=== PATIENT | male | born 1945 | race Caucasian/White ===

== ENCOUNTER 2020-04-20 09:07 | Outpatient (REF) | payer MEDICARE, OTHER, SELFPAY ==
[2020-04-20 11:19] LABS: MANUAL DIFF FLAG NO
[2020-04-20 11:29] LABS: Basophils Absolute Auto 0.1 X10*3/uL (0.0-0.2); Basophils Percent Auto 0.8 % (0-2); Eosinophils Absolute Auto 0.3 X10*3/uL (0.0-0.4); Eosinophils Percent Auto 3.3 % (0-4); Hematocrit 42.6 % (42-52); Hemoglobin 14.3 g/dl (14.0-18.0); Imm Gran Abs Auto 0.03 X10*3/uL (0.00-0.03); Imm Gran Pct Auto 0.3 % (0.0-0.4); Lymphocytes Percent Auto 29.2 % (20-40); Mean Corpuscular HGB Conc 33.6 g/dl (31.0-36.0); Mean Corpuscular Hemoglobin 29.7 pg (27.0-33.0); Mean Corpuscular Volume 88.4 fL (80-98); Mean Platelet Volume 11.3 fL (9.4-12.4); Monocytes Absolute Auto 1.1 X10*3/uL (0.1-1.2); Monocytes Percent Auto 10.5 % (2-11); Neutrophils Absolute Auto 5.8 X10*3/uL (2.0-8.3); Neutrophils Percent Auto 55.9 % (45-73); Platelet Count 248 X10*3/uL (160-400); Red Blood Count 4.82 X10*6/uL (4.60-5.80); Red Cell Distribution Width 13.2 % (11.0-16.0); White Blood Count 10.4 X10*3/uL (4.8-10.8)
[2020-04-20 12:07] LABS: Alanine Aminotransferase 18 U/L (0-40); Alkaline Phosphatase 69 U/L (39-117); Anion Gap 17 (12-20); Aspartate Amino Transferase 17 U/L (5-37); Bilirubin Total 0.5 mg/dL (0.0-1.0); Blood Urea Nitrogen 13 mg/dL (9-16); Calcium 8.4 mg/dL (8.4-10.2); Carbon Dioxide 23 mmol/L (22-29); Chloride 105 mmol/L (96-108); Cholesterol 172 mg/dL; Estimated Glomerular Filt Rate > 60; Glucose Fasting 136 mg/dL (60-99); HDL Cholesterol 36 mg/dL; LDL Cholesterol Calculated 102 mg/dl; Potassium 4.5 mmol/l (3.3-5.1); Sodium 140 mmol/L (135-145); Total Protein 6.8 g/dL (6.5-8.0); Triglycerides 174 mg/dL
[2020-04-20 12:11] LABS: Estimated Average Glucose 189 mg/dL; Hemoglobin A1c % 8.2 %
[2020-04-20 12:13] LABS: Creatinine Urine 57.58 mg/dL; Microalbum/Creatinine Ratio Ur 27.7 ug/mg cr
[2020-04-20 12:15] LABS: Prostate Specific Antigen Scr 1.03 ng/mL (<0.05-4.0)
== END 2020-04-20 09:08 | disposition home or self-care (01) ==
LOC: HO.HMGCLDS 09:07
PROVIDERS: PCP Internal Medicine; Visit Provider Internal Medicine
DX: K21.9 Gastro-esophageal reflux disease without esophagitis (principal); I10 Essential (primary) hypertension; E11.9 Type 2 diabetes mellitus without complications
CPT/HCPCS: 36415; 80053; 80061; 82043; 83036; 84153; 85025

== ENCOUNTER 2020-06-12 14:47 | Outpatient (REF) | payer MEDICARE, OTHER, SELFPAY ==
[2020-06-12 15:31] LABS: Influenza A PCR NEGATIVE (Negative); Influenza B PCR NEGATIVE (Negative); Resp Syncy Virus RNA Qual PCR NEGATIVE (Negative)
[2020-06-12 15:39] LABS: SARS COV2 PCR INHOUSE POSITIVE (Negative)
== END 2020-06-12 14:48 | disposition home or self-care (01) ==
LOC: HO.LNP 14:47
PROVIDERS: Visit Provider Internal Medicine
DX: Z20.828 Contact with and (suspected) exposure to other viral communicable diseases (principal)
CPT/HCPCS: 0241U

== ENCOUNTER 2020-09-04 12:29 | Outpatient (REF) | payer MEDICARE, OTHER, SELFPAY ==
[2020-09-04 13:54] LABS: Glucose Urine UA >=1000 MG/DL (NEG); Leukocyte Esterase Urine NEG (NEG); Nitrite Urine NEG (NEG); PH 5.5 (5.0-8.0); Specific Gravity - Urine 1.025 (1.005-1.025); Urine Blood NEG (NEG); Urine Ketones NEG (NEG); Urine Protein NEG (NEG-TRACE)
[2020-09-04 13:58] LABS: Appearance Urine CLEAR; Color Urine YELLOW
[2020-09-04 14:03] LABS: RBC Urine 0 /HPF (0); Squamous Epithelial Cell Urine TRACE /LPF
[2020-09-04 14:14] LABS: Estimated Average Glucose 174 mg/dL; Hemoglobin A1c % 7.7 %
[2020-09-04 14:37] LABS: Alanine Aminotransferase 21 U/L (0-40); Albumin Level 4.1 g/dL (3.5-5.0); Alkaline Phosphatase 77 U/L (39-117); Anion Gap 18 (12-20); Aspartate Amino Transferase 17 U/L (5-37); Bilirubin Total 0.6 mg/dL (0.0-1.0); Blood Urea Nitrogen 13 mg/dL (9-16); Calcium 9.5 mg/dL (8.4-10.2); Carbon Dioxide 23 mmol/L (22-29); Chloride 102 mmol/L (96-108); Estimated Glomerular Filt Rate > 60; Glucose Random 286 mg/dL (60-115); Potassium 3.9 mmol/L (3.3-5.1); Sodium 139 mmol/L (135-145); Total Protein 7.2 g/dL (6.5-8.0)
[2020-09-04 14:39] LABS: Creatinine Urine 121.46 mg/dL; Microalbum/Creatinine Ratio Ur 53.5 ug/mg cr
== END 2020-09-04 12:30 | disposition home or self-care (01) ==
LOC: HO.HMGCLDS 12:29
PROVIDERS: PCP Internal Medicine; Visit Provider Internal Medicine
DX: I10 Essential (primary) hypertension (principal); E11.9 Type 2 diabetes mellitus without complications; K21.9 Gastro-esophageal reflux disease without esophagitis
CPT/HCPCS: 36415; 80053; 81001; 82043; 83036

== ENCOUNTER 2020-12-19 17:53 | Outpatient (REF) | payer MEDICARE, OTHER, SELFPAY | END 2020-12-19 17:54 | disposition home or self-care (01) | LOC: HO.LNP 17:53 | PROVIDERS: Visit Provider Internal Medicine | DX: R19.7 Diarrhea, unspecified (principal) | CPT/HCPCS: 87045; 87046 ==

== ENCOUNTER 2021-01-12 11:57 | Outpatient (REF) | payer MEDICARE, OTHER, SELFPAY ==
[2021-01-12 13:04] LABS: MANUAL DIFF FLAG NO
[2021-01-12 13:08] LABS: Basophils Absolute Auto 0.1 X10*3/uL (0.0-0.2); Basophils Percent Auto 0.9 % (0-2); Eosinophils Absolute Auto 0.5 X10*3/uL (0.0-0.4); Eosinophils Percent Auto 4.7 % (0-4); Hematocrit 44.1 % (42-52); Hemoglobin 14.7 g/dl (14.0-18.0); Imm Gran Abs Auto 0.04 X10*3/uL (0.00-0.03); Imm Gran Pct Auto 0.4 % (0.0-0.4); Lymphocytes Percent Auto 27.4 % (20-40); Mean Corpuscular HGB Conc 33.3 g/dl (31.0-36.0); Mean Corpuscular Hemoglobin 29.1 pg (27.0-33.0); Mean Corpuscular Volume 87.2 fL (80-98); Mean Platelet Volume 11.6 fL (9.4-12.4); Monocytes Absolute Auto 0.8 X10*3/uL (0.1-1.2); Monocytes Percent Auto 7.4 % (2-11); Neutrophils Absolute Auto 6.4 X10*3/uL (2.0-8.3); Neutrophils Percent Auto 59.2 % (45-73); Platelet Count 247 X10*3/uL (160-400); Red Blood Count 5.06 X10*6/uL (4.60-5.80); Red Cell Distribution Width 13.2 % (11.0-16.0); White Blood Count 10.8 X10*3/uL (4.8-10.8)
[2021-01-12 13:17] LABS: Estimated Average Glucose 200 mg/dL; Hemoglobin A1c % 8.6 %
[2021-01-12 13:43] LABS: Alanine Aminotransferase 19 U/L (0-40); Albumin Level 4.1 g/dL (3.5-5.0); Alkaline Phosphatase 76 U/L (39-117); Anion Gap 17 (12-20); Aspartate Amino Transferase 15 U/L (5-37); Bilirubin Total 0.5 mg/dL (0.0-1.0); Blood Urea Nitrogen 13 mg/dL (9-16); Calcium 9.7 mg/dL (8.4-10.2); Carbon Dioxide 25 mmol/L (22-29); Chloride 103 mmol/L (96-108); Estimated Glomerular Filt Rate > 60; Glucose Random 304 mg/dL (60-115); Potassium 4.6 mmol/L (3.3-5.1); Sodium 140 mmol/L (135-145); Total Protein 6.9 g/dL (6.5-8.0)
[2021-01-12 14:02] LABS: Microalbum/Creatinine Ratio Ur 18.2 ug/mg cr
== END 2021-01-12 11:58 | disposition home or self-care (01) ==
LOC: HO.LAB 11:57
PROVIDERS: PCP Internal Medicine; Visit Provider Internal Medicine
DX: E11.9 Type 2 diabetes mellitus without complications (principal); I10 Essential (primary) hypertension; K21.9 Gastro-esophageal reflux disease without esophagitis
CPT/HCPCS: 36415; 80053; 82043; 83036; 85025

== ENCOUNTER 2021-03-23 13:50 | Outpatient (REF) | payer MEDICARE, OTHER, SELFPAY ==
[2021-03-23 14:05] LABS: MANUAL DIFF FLAG NO
[2021-03-23 14:19] LABS: Basophils Absolute Auto 0.1 X10*3/uL (0.0-0.2); Basophils Percent Auto 0.9 % (0-2); Eosinophils Absolute Auto 0.3 X10*3/uL (0.0-0.4); Eosinophils Percent Auto 3.3 % (0-4); Hematocrit 43.8 % (42-52); Hemoglobin 15.1 g/dl (14.0-18.0); Imm Gran Abs Auto 0.02 X10*3/uL (0.00-0.03); Imm Gran Pct Auto 0.2 % (0.0-0.4); Lymphocytes Absolute Auto 2.7 X10*3/uL (1.2-4.9); Lymphocytes Percent Auto 27.4 % (20-40); Mean Corpuscular HGB Conc 34.5 g/dl (31.0-36.0); Mean Corpuscular Hemoglobin 29.4 pg (27.0-33.0); Mean Corpuscular Volume 85.4 fL (80-98); Mean Platelet Volume 10.9 fL (9.4-12.4); Monocytes Absolute Auto 1.1 X10*3/uL (0.1-1.2); Monocytes Percent Auto 11.5 % (2-11); Neutrophils Absolute Auto 5.6 X10*3/uL (2.0-8.3); Neutrophils Percent Auto 56.7 % (45-73); Platelet Count 251 X10*3/uL (160-400); Red Blood Count 5.13 X10*6/uL (4.60-5.80); White Blood Count 9.8 X10*3/uL (4.8-10.8)
[2021-03-23 14:41] LABS: Estimated Average Glucose 226 mg/dL; Hemoglobin A1c % 9.5 %
[2021-03-23 14:45] LABS: Alanine Aminotransferase 17 U/L (0-40); Albumin Level 4.1 g/dL (3.5-5.0); Alkaline Phosphatase 80 U/L (39-117); Anion Gap 15 (12-20); Aspartate Amino Transferase 15 U/L (5-37); Bilirubin Total 0.4 mg/dL (0.0-1.0); Blood Urea Nitrogen 12 mg/dL (9-16); C Reactive Protein 1.19 mg/dL (< or = 0.50); Calcium 9.9 mg/dL (8.4-10.2); Carbon Dioxide 26 mmol/L (22-29); Chloride 102 mmol/L (96-108); Estimated Glomerular Filt Rate > 60; Glucose Random 288 mg/dL (60-115); Lipase 21 U/L (8-78); Potassium 4.4 mmol/L (3.3-5.1); Sodium 139 mmol/L (135-145); Total Protein 7.1 g/dL (6.5-8.0)
[2021-03-24 11:56] LABS: Gliadin Deamidated IgA Ab <1.0 U/mL; Gliadin Deamidated IgG Ab <1.0 U/mL; Transglutaminase Ab IgG <1.0 U/mL
== END 2021-03-23 13:51 | disposition home or self-care (01) ==
LOC: HO.LAB 13:50
PROVIDERS: PCP Internal Medicine; Visit Provider Internal Medicine
DX: R10.9 Unspecified abdominal pain (principal); I10 Essential (primary) hypertension; E11.9 Type 2 diabetes mellitus without complications
CPT/HCPCS: 36415; 80053; 83036; 83516; 83690; 85025; 86140

== ENCOUNTER 2021-04-03 13:12 | Outpatient (REF) | payer MEDICARE, OTHER, SELFPAY ==
--- NOTE | ~2021-04-03 | CT_ITS ---
EXAMINATION: CT ABDOMEN AND PELVIS WITHOUT CONTRAST CLINICAL INFORMATION: Abdominal pain COMPARISON: None TECHNIQUE: Multidetector volumetric imaging was performed from the superior aspect of the liver through the pubic symphysis. Sagittal and coronal reformatted images were obtained on the technologist's workstation. This CT examination was performed using dose optimization techniques as appropriate, variously including the following: *Automated exposure control *Adjustment of mA and/or kV according to patient size (this includes techniques or standardized protocols for targeted exams where dose is matched to indication/reason for exam; i.e. extremities or head) *Use of iterative reconstruction technique DLP: 436 mGy-cm FINDINGS: LUNG BASES: The visualized lung bases are unremarkable. LIVER, GALLBLADDER, AND BILIARY TREE: The liver is normal in size, shape, and attenuation. No focal hepatic lesion or biliary ductal dilatation is present. The gallbladder is unremarkable with no evidence of radiopaque gallstones, gallbladder wall thickening, or obvious pericholecystic inflammatory changes. PANCREAS: There is a 1 cm cyst in the tail of the pancreas axial image 21 series 3. The pancreas is otherwise unremarkable. SPLEEN: Unremarkable. ADRENAL GLANDS: Unremarkable. KIDNEYS AND URETERS: There is a 1.5 cm lesion in the upper pole of the right kidney. This is slightly increased in signal compared to the renal cortex and has peripheral dependent calcification. This may represent a milk of calcium cyst. Kidneys are otherwise unremarkable. BLADDER: Unremarkable. GASTROINTESTINAL TRACT: There is diverticulosis of the colon. No evidence of diverticulitis. The small and large bowel is otherwise unremarkable. The stomach is unremarkable. The appendix is unremarkable. ABDOMINAL WALL: There is a small umbilical hernia containing fat. LYMPH NODES: There is shotty mesenteric and bilateral inguinal lymphadenopathy. No enlarged lymph nodes are seen. VASCULAR: Unremarkable. PELVIC VISCERA: Unremarkable. OSSEOUS STRUCTURES: There are degenerative changes of the spine. CT/CT abdomen pelvis wo con IMPRESSION: Diverticulosis of the colon. No evidence of diverticulitis. 1 cm cyst in the tail of the pancreas. Follow-up MR of the pancreas with MRCP recommended. Probable 1.5 cm milk of calcium cyst in the right kidney.
== END 2021-04-03 13:13 | disposition home or self-care (01) ==
LOC: HO.CT 13:12
PROVIDERS: Visit Provider Internal Medicine
DX: R10.84 Generalized abdominal pain (principal); R19.7 Diarrhea, unspecified
CPT/HCPCS: 74176

== ENCOUNTER 2021-04-16 10:52 | Outpatient (REF) | payer MEDICARE, OTHER, SELFPAY ==
--- NOTE | ~2021-04-16 | MR_ITS ---
EXAMINATION: MR ABDOMEN WITHOUT AND WITH CONTRAST CLINICAL INFORMATION: History of abdominal pain. Findings of pancreatic tail cyst and right renal lesion on noncontrast CT of 04/03/2021. COMPARISON: Noncontrast CT examination of abdomen and pelvis from 04/03/2021. TECHNIQUE: MR abdomen was performed without and with use of 8.5 mL intravenous Gadavist. Postcontrast images are performed in multiphase dynamic sequences. Imaging was performed in 3 planes. FINDINGS: LUNG BASES: No pulmonary consolidation or pleural effusion at either lung base. LIVER: Liver is partially included in the [id number] on the axial images, since the axial images are mainly focused on evaluation of the kidneys. Liver has normal size and contour. Mild diffuse hepatic steatosis is evident on opposed phase gradient echo images. A few very small T2 hyperintense liver cysts are noted on the coronal T2-weighted images. No suspicious liver lesion. GALLBLADDER AND BILIARY TREE: Gallbladder has normal wall thickness. No evidence of cholelithiasis or pericholecystic fluid. No dilated bile ducts. PANCREAS: 1.3 x 1.5 x 1.1 cm cyst of the pancreatic tail has thin internal septation. The cyst wall is approximately 0.2 cm thick. No focal mural nodule. No visible communication between this cyst and the pancreatic duct. No pancreatic ductal dilatation, edema or peripancreatic fluid. SPLEEN: Normal. ADRENAL GLANDS: Normal. KIDNEYS: A 1.6 x 2.1 cm cortical lesion of the lateral right upper pole exhibits intrinsic T1 signal shortening on noncontrast images and is is hypointense on T2-weighted images. Due to mild respiratory motion and misregistration of the serial dynamic contrast-enhanced images, the subtraction images are suboptimal. However, use of a range of interest cursor to measure signal within the renal lesion on precontrast and postcontrast images reveals no appreciable enhancement of the lesion. Findings are consistent with a proteinaceous cyst. There appears to be very thin septation within the cyst. No thick septation or mural nodule. No solid, contrast-enhancing mass. No hydronephrosis or perinephric fluid collection. BOWEL AND PERITONEUM: Stomach is unremarkable. There are diverticula of the colon. No dilated loops of bowel. No bowel wall thickening or mesenteric fat stranding. No ascites or peritoneal nodules. VASCULATURE: Abdominal aorta is normal in caliber. Inferior vena cava and renal veins are normal. LYMPH NODES: No pathologic sized lymph nodes in the abdomen. SKELETAL: Mild dextroscoliosis of the degenerated lumbar spine. Chronic mild degenerative right lateral listhesis of L3 on L4. No suspicious bone lesions. MR/MR abdomen wo/w con IMPRESSION: * There is a proteinaceous cyst (Bosniak category 2 lesion) of the right kidney. No renal imaging follow-up recommended. * There is a 1.5 cm cyst with thin internal septation of the pancreatic tail. Follow-up options include re-imaging of the pancreas in 6 months or endoscopic ultrasound/FNA.
== END 2021-04-16 10:53 | disposition home or self-care (01) ==
LOC: HO.MRI 10:52
PROVIDERS: Visit Provider Internal Medicine
DX: R10.84 Generalized abdominal pain (principal); N28.1 Cyst of kidney, acquired
CPT/HCPCS: 74183; A9585

== ENCOUNTER 2021-09-19 11:11 | Outpatient (REF) | payer MEDICARE, OTHER, SELFPAY ==
[2021-09-19 13:18] LABS: Anion Gap 15 (12-20); Blood Urea Nitrogen 12 mg/dL (9-16); Calcium 9.7 mg/dL (8.4-10.2); Carbon Dioxide 23 mmol/L (22-29); Chloride 105 mmol/L (96-108); Estimated Glomerular Filt Rate > 60; Glucose Random 277 mg/dL (60-115); Potassium 4.2 mmol/L (3.3-5.1); Sodium 139 mmol/L (135-145)
[2021-09-19 13:55] LABS: Estimated Average Glucose 163 mg/dL; Hemoglobin A1c % 7.3 %
== END 2021-09-19 11:12 | disposition home or self-care (01) ==
LOC: HO.10HDL 11:11
PROVIDERS: Visit Provider Internal Medicine
DX: E11.9 Type 2 diabetes mellitus without complications (principal); I10 Essential (primary) hypertension
CPT/HCPCS: 36415; 80048; 83036

== ENCOUNTER 2021-10-16 13:08 | Outpatient (REF) | payer MEDICARE, OTHER, SELFPAY ==
--- NOTE | ~2021-10-16 | MR_ITS ---
EXAMINATION: MR ABDOMEN WITHOUT AND WITH CONTRAST CLINICAL INFORMATION: Pancreatic cyst. COMPARISON: Previous CT of the abdomen and pelvis March 2021 and MR of the abdomen April 2021 TECHNIQUE: MR abdomen was performed without and with use of 8.5 mL intravenous Gadavist gadolinium contrast. Postcontrast images are performed in multiphase dynamic sequences. Imaging was performed in 3 planes. FINDINGS: LUNG BASES: The visualized lung bases are unremarkable. LIVER, GALLBLADDER, AND BILIARY TREE: The liver is normal in size and contour. There is signal loss in the liver on out of phase sequences. There is a tiny cyst in the peripheral right lobe of the liver. The gallbladder is normal. There is no intrahepatic or extrahepatic biliary duct dilatation. PANCREAS: There is a complex cyst in the tail of the pancreas. This measures 1.3 x 1.6 cm in AP and transverse dimension on postcontrast sequences and does not appear appreciably changed in size. This has a single thin nonenhancing septation. This has a thick wall and gradual wall enhancement both of which appear increased from prior exam from 2020. Wall thickness now measures up to 7 mm. The pancreas is otherwise normal. The main pancreatic duct is normal in caliber. SPLEEN: Normal. ADRENAL GLANDS: Normal. KIDNEYS AND URETERS: There is a 1.2 x 1.8 cm lesion in the upper pole of the right kidney. This is high signal on T1-weighted sequences, low signal on T2-weighted sequences and demonstrates no evidence of enhancement. Again this probably represents a complex proteinaceous cyst. GASTROINTESTINAL TRACT: There is diverticulosis of the colon. No bowel obstruction. No ascites or fluid collection. ABDOMINAL WALL: There is an umbilical hernia containing fat. LYMPH NODES: No lymphadenopathy. VASCULAR: Unremarkable. OSSEOUS STRUCTURES: Marrow signal normal. There are degenerative changes of the spine. MR/MR abdomen wo/w con IMPRESSION: There is slight interval increase in wall thickness and enhancement of the complex cyst in the tail of the pancreas. Appearance is concerning for possible neoplasm. Endoscopic ultrasound and fine-needle aspiration should be considered. Other stable liver and right kidney findings. Findings will be communicated by the [place] work flow supervisor costuming.
[2021-10-16 13:03] LABS: Anion Gap 14 (12-20); Blood Urea Nitrogen 14 mg/dL (9-16); Calcium 9.9 mg/dL (8.4-10.2); Carbon Dioxide 26 mmol/L (22-29); Chloride 103 mmol/L (96-108); Estimated Glomerular Filt Rate 59; Glucose Random 344 mg/dL (60-115); Potassium 4.4 mmol/L (3.3-5.1); Sodium 139 mmol/L (135-145)
== END 2021-10-16 13:09 | disposition home or self-care (01) ==
LOC: HO.MRI 13:08
PROVIDERS: Visit Provider Internal Medicine
DX: K86.2 Cyst of pancreas (principal)
CPT/HCPCS: 36415; 74183; 80048; A9585

== ENCOUNTER 2021-10-24 08:21 | Outpatient (REF) | payer MEDICARE, OTHER, SELFPAY ==
[2021-10-24 11:48] LABS: Estimated Average Glucose 169 mg/dL; Hemoglobin A1c % 7.5 %
[2021-10-24 11:55] LABS: Anion Gap 14 (12-20); Blood Urea Nitrogen 9 mg/dL (9-16); Calcium 9.7 mg/dL (8.4-10.2); Carbon Dioxide 26 mmol/L (22-29); Chloride 104 mmol/L (96-108); Estimated Glomerular Filt Rate > 60; Glucose Random 141 mg/dL (60-115); Potassium 4.9 mmol/L (3.3-5.1); Sodium 139 mmol/L (135-145)
== END 2021-10-24 08:22 | disposition home or self-care (01) ==
LOC: HO.HMGCLDS 08:21
PROVIDERS: PCP Internal Medicine; Visit Provider Internal Medicine
DX: E11.65 Type 2 diabetes mellitus with hyperglycemia (principal)
CPT/HCPCS: 36415; 80048; 83036

== ENCOUNTER 2022-04-02 09:20 | Outpatient (REF) | payer MEDICARE, OTHER, SELFPAY ==
[2022-04-02 11:10] LABS: MANUAL DIFF FLAG NO
[2022-04-02 11:14] LABS: Appearance Urine Clear; Color Urine Yellow; Glucose Urine UA Negative (Negative); Leukocyte Esterase Urine Negative (Negative); Nitrite Urine Negative (Negative); PH 6.5 (5.0-9.0); Urine Blood Negative (Negative); Urine Ketones Negative (Negative); Urine Protein Negative (Neg-Trace)
[2022-04-02 11:28] LABS: Basophils Absolute Auto 0.1 X10*3/uL (0.0-0.2); Basophils Percent Auto 0.8 % (0-2); Eosinophils Absolute Auto 0.5 X10*3/uL (0.0-0.4); Eosinophils Percent Auto 4.8 % (0-4); Hematocrit 45.7 % (42.0-52.0); Hemoglobin 15.4 g/dl (14.0-18.0); Imm Gran Abs Auto 0.04 X10*3/uL (0.00-0.03); Imm Gran Pct Auto 0.4 % (0.0-0.4); Lymphocytes Absolute Auto 3.1 X10*3/uL (1.2-4.9); Lymphocytes Percent Auto 29.1 % (20-40); Mean Corpuscular HGB Conc 33.7 g/dl (31.0-36.0); Mean Corpuscular Hemoglobin 29.8 pg (27.0-33.0); Mean Corpuscular Volume 88.6 fL (80.0-98.0); Mean Platelet Volume 10.8 fL (9.4-12.4); Monocytes Absolute Auto 1.1 X10*3/uL (0.1-1.2); Monocytes Percent Auto 9.9 % (2-11); Neutrophils Absolute Auto 5.9 x10*3/uL (2.0-8.3); Platelet Count 263 X10*3/uL (160-400); Red Blood Count 5.16 X10*6/uL (4.60-5.80); Red Cell Distribution Width 13.3 % (11.0-16.0); White Blood Count 10.8 X10*3/uL (4.8-10.8)
[2022-04-02 11:38] LABS: Estimated Average Glucose 163 mg/dL; Hemoglobin A1c % 7.3 %
[2022-04-02 12:03] LABS: Creatinine Urine 89.83 mg/dL; Microalbum/Creatinine Ratio Ur 12.2 ug/mg cr
[2022-04-02 12:03] LABS: Prostate Specific Antigen Scr 1.05 ng/mL (<0.05-4.0)
[2022-04-02 12:30] LABS: Alanine Aminotransferase 18 U/L (0-40); Albumin Level 4.2 g/dL (3.5-5.0); Alkaline Phosphatase 79 U/L (39-117); Anion Gap 19 (12-20); Aspartate Amino Transferase 17 U/L (5-37); Bilirubin Total 0.7 mg/dL (0.0-1.0); Blood Urea Nitrogen 11 mg/dL (9-16); Calcium 9.6 mg/dL (8.4-10.2); Carbon Dioxide 24 mmol/L (22-29); Chloride 103 mmol/L (96-108); Cholesterol 201 mg/dL; Estimated Glomerular Filt Rate > 60; Glucose Fasting 149 mg/dL (60-99); HDL Cholesterol 37 mg/dL; LDL Cholesterol Calculated 134 mg/dl; Potassium 4.6 mmol/L (3.3-5.1); Sodium 141 mmol/L (135-145); Total Protein 7.4 g/dL (6.5-8.0); Triglycerides 150 mg/dL
== END 2022-04-02 09:21 | disposition home or self-care (01) ==
LOC: HO.HMGCLDS 09:20
PROVIDERS: PCP Internal Medicine; Visit Provider Internal Medicine
DX: Z12.5 Encounter for screening for malignant neoplasm of prostate (principal); E11.9 Type 2 diabetes mellitus without complications; E78.00 Pure hypercholesterolemia, unspecified; K21.9 Gastro-esophageal reflux disease without esophagitis; I10 Essential (primary) hypertension
CPT/HCPCS: 36415; 80053; 80061; 81003; 82043; 83036; 84153; 85025

== ENCOUNTER 2022-07-22 11:41 | Outpatient (REF) | payer MEDICARE, OTHER, SELFPAY ==
[2022-07-22 14:31] LABS: Estimated Average Glucose 171 mg/dL; Hemoglobin A1c % 7.6 %
[2022-07-22 14:38] LABS: Anion Gap 14 (12-20); Blood Urea Nitrogen 12 mg/dL (9-16); Calcium 9.4 mg/dL (8.4-10.2); Carbon Dioxide 23 mmol/L (22-29); Chloride 106 mmol/L (96-108); Estimated Glomerular Filt Rate > 60; Glucose Random 255 mg/dL (60-115); Potassium 4.2 mmol/L (3.3-5.1); Sodium 139 mmol/L (135-145)
== END 2022-07-22 11:42 | disposition home or self-care (01) ==
LOC: HO.HMGCLDS 11:41
PROVIDERS: PCP Internal Medicine; Visit Provider Internal Medicine
DX: Z13.89 Encounter for screening for other disorder (principal)
CPT/HCPCS: 36415; 80048; 83036

== ENCOUNTER 2023-01-09 08:02 | Outpatient (REF) | payer MEDICARE, OTHER, SELFPAY ==
[2023-01-09 11:14] LABS: MANUAL DIFF FLAG NO
[2023-01-09 11:49] LABS: Basophils Absolute Auto 0.1 X10*3/uL (0.0-0.2); Eosinophils Absolute Auto 0.4 X10*3/uL (0.0-0.4); Eosinophils Percent Auto 4.4 % (0-4); Hematocrit 45.8 % (42.0-52.0); Hemoglobin 15.3 g/dl (14.0-18.0); Imm Gran Abs Auto 0.03 X10*3/uL (0.00-0.03); Imm Gran Pct Auto 0.3 % (0.0-0.4); Lymphocytes Absolute Auto 2.8 X10*3/uL (1.2-4.9); Lymphocytes Percent Auto 28.5 % (20-40); Mean Corpuscular HGB Conc 33.4 g/dl (31.0-36.0); Mean Corpuscular Hemoglobin 29.3 pg (27.0-33.0); Mean Corpuscular Volume 87.6 fL (80.0-98.0); Mean Platelet Volume 11.5 fL (9.4-12.4); Monocytes Percent Auto 10.7 % (2-11); Neutrophils Absolute Auto 5.4 x10*3/uL (2.0-8.3); Neutrophils Percent Auto 55.1 % (45-73); Platelet Count 243 X10*3/uL (160-400); Red Blood Count 5.23 X10*6/uL (4.60-5.80); Red Cell Distribution Width 13.3 % (11.0-16.0); White Blood Count 9.7 X10*3/uL (4.8-10.8)
[2023-01-09 11:53] LABS: Alanine Aminotransferase 25 U/L (0-40); Albumin Level 3.9 g/dL (3.5-5.0); Alkaline Phosphatase 88 U/L (39-117); Anion Gap 15 (12-20); Aspartate Amino Transferase 19 U/L (5-37); Bilirubin Total 0.7 mg/dL (0.0-1.0); Blood Urea Nitrogen 12 mg/dL (9-16); Calcium 9.4 mg/dL (8.4-10.2); Carbon Dioxide 22 mmol/L (22-29); Chloride 107 mmol/L (96-108); Estimated Glomerular Filt Rate > 60; Glucose Fasting 154 mg/dL (60-99); Potassium 3.9 mmol/L (3.3-5.1); Sodium 140 mmol/L (135-145)
[2023-01-09 12:04] LABS: Estimated Average Glucose 174 mg/dL; Hemoglobin A1c % 7.7 %
[2023-01-09 12:09] LABS: Creatinine Urine 147.31 mg/dL; Microalbum/Creatinine Ratio Ur 7.4 ug/mg cr
== END 2023-01-09 08:03 | disposition home or self-care (01) ==
LOC: HO.HMGCLDS 08:02
PROVIDERS: PCP Internal Medicine; Visit Provider Internal Medicine
DX: E11.9 Type 2 diabetes mellitus without complications (principal); I10 Essential (primary) hypertension; K21.9 Gastro-esophageal reflux disease without esophagitis; K57.90 Diverticulosis of intestine, part unspecified, without perforation or abscess without bleeding
CPT/HCPCS: 36415; 80053; 82043; 83036; 85025

== ENCOUNTER 2023-05-21 08:38 | Outpatient (REF) | payer MEDICARE, OTHER, SELFPAY ==
[2023-05-21 11:35] LABS: Appearance Urine Clear; Color Urine Yellow; Glucose Urine UA Negative (Negative); Leukocyte Esterase Urine Trace (Negative); Nitrite Urine Negative (Negative); PH 5.5 (5.0-9.0); UMIC TRIGGER UA YES; Urine Blood Negative (Negative); Urine Ketones Negative (Negative); Urine Protein Negative (Neg-Trace)
[2023-05-21 11:39] LABS: Alanine Aminotransferase 24 U/L (0-40); Albumin Level 3.9 g/dL (3.5-5.0); Alkaline Phosphatase 92 U/L (39-117); Anion Gap 12 (12-20); Aspartate Amino Transferase 19 U/L (5-37); Bilirubin Total 0.5 mg/dL (0.0-1.0); Blood Urea Nitrogen 12 mg/dL (9-16); Calcium 9.2 mg/dL (8.4-10.2); Carbon Dioxide 24 mmol/L (22-29); Chloride 107 mmol/L (96-108); Cholesterol 184 mg/dL (<200); Estimated Glomerular Filt Rate > 60; Glucose Fasting 170 mg/dL (60-99); HDL Cholesterol 32 mg/dL (>40); LDL Cholesterol Calculated 132 mg/dL (<100); Sodium 139 mmol/L (135-145); Total Protein 7.1 g/dL (6.5-8.0); Triglycerides 102 mg/dL (<150)
[2023-05-21 11:40] LABS: Estimated Average Glucose 194 mg/dL; Hemoglobin A1c % 8.4 % (<6.0)
[2023-05-21 11:41] LABS: Bacteria Urine None Seen (None Seen); Hyaline Casts Urine 0-2 /LPF (0-2); RBC Urine 0-2 /HPF (0-2); Squamous Epithelial Cell Urine 0-2 /HPF (0-2); WBC Urine 0-5 /HPF (0-5)
[2023-05-21 12:01] LABS: Prostate Specific Antigen Scr 1.01 ng/mL (<0.05-4.0)
[2023-05-21 12:50] LABS: Creatinine Urine 158.79 mg/dL; Microalbum/Creatinine Ratio Ur 11.9 ug/mg cr (<30)
== END 2023-05-21 08:39 | disposition home or self-care (01) ==
LOC: HO.HMGCLDS 08:38
PROVIDERS: PCP Internal Medicine; Visit Provider Internal Medicine
DX: Z12.5 Encounter for screening for malignant neoplasm of prostate (principal); E11.9 Type 2 diabetes mellitus without complications; I10 Essential (primary) hypertension; E78.00 Pure hypercholesterolemia, unspecified; K57.90 Diverticulosis of intestine, part unspecified, without perforation or abscess without bleeding; K21.9 Gastro-esophageal reflux disease without esophagitis; R60.0 Localized edema
CPT/HCPCS: 36415; 80053; 80061; 81001; 82043; 82570; 83036; 84153

== ENCOUNTER 2023-12-19 11:10 | Outpatient (REF) | payer MEDICARE, OTHER, SELFPAY ==
[2023-12-19 13:27] LABS: Estimated Average Glucose 212 mg/dL
[2023-12-19 13:33] LABS: Anion Gap 16 (12-20); Blood Urea Nitrogen 11 mg/dL (9-16); Calcium 9.3 mg/dL (8.4-10.2); Carbon Dioxide 24 mmol/L (22-29); Chloride 103 mmol/L (96-108); Estimated Glomerular Filt Rate > 60; Glucose Random 300 mg/dL (60-115); Potassium 4.1 mmol/L (3.3-5.1); Sodium 139 mmol/L (135-145)
== END 2023-12-19 11:11 | disposition home or self-care (01) ==
LOC: HO.HMGCLDS 11:10
PROVIDERS: PCP Internal Medicine; Visit Provider Internal Medicine
DX: E11.9 Type 2 diabetes mellitus without complications (principal); I10 Essential (primary) hypertension
CPT/HCPCS: 36415; 80048; 83036

== ENCOUNTER 2024-04-13 09:39 | Outpatient (REF) | payer MEDICARE, OTHER, SELFPAY ==
[2024-04-13 13:59] LABS: Anion Gap 18 (12-20); Blood Urea Nitrogen 15 mg/dL (9-16); Calcium 9.6 mg/dL (8.4-10.2); Carbon Dioxide 19 mmol/L (22-29); Chloride 107 mmol/L (96-108); Estimated Average Glucose 171 mg/dL; Estimated Glomerular Filt Rate > 60; Glucose Random 226 mg/dL (60-115); Hemoglobin A1C 226.1205 umol/L; Hemoglobin A1c % 7.6 % (<6.0); Sodium 140 mmol/L (135-145); Total Hemoglobin (HGBA1C) 3827.7754 umol/L
[2024-04-13 14:40] LABS: Creatinine Urine 65.35 mg/dL; Microalbumin Urine < 5.0 mg/L
== END 2024-04-13 09:40 | disposition home or self-care (01) ==
LOC: HO.HMGCLDS 09:39
PROVIDERS: PCP Internal Medicine; Visit Provider Internal Medicine
DX: E11.9 Type 2 diabetes mellitus without complications (principal); I10 Essential (primary) hypertension
CPT/HCPCS: 36415; 80048; 82043; 82570; 83036

== ENCOUNTER 2024-08-03 08:54 | Outpatient (REF) | payer MEDICARE, OTHER, SELFPAY ==
--- OUTSIDE RECORDS SUMMARY | 2024-08-03 09:37 | XMS_ITS | Patient Health Record ---
Author Organization [facility] Address [address] [place] [id number] Care Team Providers Care Library Services Assistant Name Role Phone Santos Briceño MD Primary Care Provider Ruslan Dougherty Jr Unavailable ALLERGIES Allergen (clinical drug ingredient) Drug/Non Drug Allergy documented on EMR Reaction Allergy Type Onset Date Status triamcinolone Triamcinolone Unknown Drug Allergy Active Fragrance Unknown Allergy Active codeine Codeine Sulfate Unknown Drug Allergy A ctive REASON FOR REFERRAL No Information MEDICATIONS Medication SIG (Take, Route, Frequency, Duration) Notes Start Date End Date Status Fish Oil 1200mg Acti ve Apple Cider Vinegar Active Biotin Active Losartan Potassium 50 MG Oral for 90 Active glipiZIDE ER 10 MG Oral for 90 Active Probiotic Active Pantoprazole Sodium 40 MG TAKE 1 TABLET BY MOUTH DAILY Oral for 90 Active Lactaid Not-Taking dilTIAZem HCl ER Coated Beads 180 MG TAKE 1 CAPSULE BY MOUTH EVERY DAY Oral for 90 Active Vitamin C 1000mg Act mikayla Flaxseed Oil 1000mg Active Vitamin D3 1000iu Ac tive SOCIAL HISTORY Tobacco Use: Social History Observation Description Date Details (start date - stop date) Former Smoker NA - NA Sex Assigned At : Social History Observation Description Sex Assigned At Unknown Tobacco Use/Smoking Question Answer Notes Patient is a former smoker How long has it been since you last smoked? > 10 years PROBLEMS Problem Type ICD Code Onset Dates Problem Status W/U Status Risk SNOMED Code Notes Problem Colon cancer screening (Z12.11) Active confirmed 192315054 Problem Gastroesophageal reflux disease with esophagitis without hemorrhage (K21.00) Active confirmed 526400160 Problem Primary pancreatic neuroendocrine tumor (D3A.8) Active confirmed 869094302 VITAL SIGNS Blood pressure diastolic 00 mm Hg 09/18/2023 Height 69 in 09/18/2023 Blood pressure systolic 00 mm Hg 09/18/2023 Weight 193 lbs 09/18/2023 BMI 28.50 kg/m2 09/18/2023 Encounters Encounter Location Date Provider Diagnosis [facility] [address] [place] [address] 09/25/2023 Ruslan Tirado Jr [facility] [address] [place] [address] 09/18/2023 Ruslan Tirado Jr Primary pancreatic neuroendocrine tumor D3A.8 ; Gastroesophageal reflux disease with esophagitis without hemorrhage K21.00 and Colon cancer screening Z12.11 ASSESSMENTS Encounter Date Diagnosis Assessment Notes Treatment Notes Treatment Clinical Notes 09/18/2023 Gastroesophageal reflux disease with esophagitis without hemorrhage (ICD-10 - K21.00) Gastroesophageal reflux disease material was printed 09/18/2023 Primary pancreatic neuroendocrine tumor (ICD-10 - D3A.8) 09/18/2023 Colon cancer screening (ICD-10 - Z12.11) PLAN OF TREATMENT Future Test Test Name Order Date COLONOSCOPY 09/17/2013 Next Appt Details Provider Name:Ruslan ellsworth Jr, 09/23/2024 01:15:00 PM, [address], [address], [place], [address], Insurance Providers Payer Name Payer Address Payer Phone Subscriber Number Group Number Insured Name Patient Relationship to Insured Coverage Start Date Coverage End Date MEDICARE OF [place] [address] [place] [address] [id number] NICKO CARSON Self - patient is the insured [facility] [address] [place] [address] [id number] NICKOCARSON Self - patient is the insured MEDICAL (GENERAL) HISTORY Medical History History ICD Code hypertension Hypercholesterolemia nasal polyps Colonoscopy 12/08/13, hyperpla stic polyp, ten-year followup (prior history of adenomas) chronic inflammatory demyeli nating polyneuropathy, 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
--- OUTSIDE RECORDS SUMMARY | 2024-08-03 09:37 | XMS_ITS ---
Author Organization [facility] Address [address] [place] [address] Care Team Providers Care Client Server Developer Name Role Phone Santos Briceño MD Primary Care Provider Ruslan Dougherty Jr REASON FOR VISIT worley's Encounters Encounter Location Date Provider Diagnosis [facility] [address] [place] [address] 09/25/2023 Ruslan Tirado Jr PLAN OF TREATMENT Next Appt Details Provider Name:Ruslan ellsworth Jr, 09/23/2024 01:15:00 PM, [address], [address], [place], [address],
--- OUTSIDE RECORDS SUMMARY | 2024-08-03 09:37 | XMS_ITS ---
Author Organization [facility] Address [address] [place] [address] Care Team Providers Care Dosier Operator Name Role Phone Santos Briceño MD Primary Care Provider Ruslan Dougherty Jr Unavailable [phone] ALLERGIES Allergen (clinical drug ingredient) Drug/Non Drug Allergy documented on EMR Reaction Allergy Type Onset Date Status triamcinolone Triamcinolone Unknown Drug Allergy Active Fragrance Unknown Allergy Active codeine Codeine Sulfate Unknown Drug Allergy A ctive REASON FOR VISIT Patient presents today for followup MEDICATIONS Medication SIG (Take, Route, Frequency, Duration) Notes Start Date End Date Status Fish Oil 1200mg Acti ve Apple Cider Vinegar Active Biotin Active Probiotic Active Lactaid Not-Taking Losartan Potassium 50 MG Oral for 90 Active glipiZIDE ER 10 MG Oral for 90 Active Pantoprazole Sodium 40 MG TAKE 1 TABLET BY MOUTH DAILY Oral for 90 Active dilTIAZem HCl ER Coated Beads 180 MG [...] Problem Colon cancer screening (Z12.11) Active confirmed 207080926 VITAL SIGNS Blood pressure systolic 00 mm Hg 09/18/19 24 Blood pressure diastolic 00 mm Hg 024 Height 69 in 09/18/2023 Weight 193 lbs 09/18/2023 BMI 28.50 kg/m2 09/18/2023 Encounters Encounter Location Date Provider Diagnosis [facility] [address] [place] [address] 09/18/2023 Ruslan Tirado Jr Primary pancreatic neuroendocrine tumor D3A.8 ; Gastroesophageal reflux disease with esophagitis without hemorrhage K21.00 and Colon cancer screening Z12.11 ASSESSMENTS Encounter Date Diagnosis Assessment Notes Treatment Notes Treatment Clinical Notes 09/18/2023 Primary pancreatic neuroendocrine tumor (ICD-10 - D3A.8) 09/18/2023 Gastroesophageal reflux disease with esophagitis without hemorrhage (ICD-10 - K21.00) Gastroesophageal reflux disease material was printed 09/18/2023 Colon cancer screening (ICD-10 - Z12.11) PLAN OF TREATMENT Treatment Notes Assessment Notes Gastroesophageal reflux dise ase with esophagitis without hemorrhage Gastroesophageal reflux disease material was printed Next Appt Details Follow Up: 1 Year, Reason: Provider Name:Ruslan ellsworth Jr, 09/23/2024 01:15:00 PM, [address] [place] [address], [address], [place], [address],
--- OUTSIDE RECORDS SUMMARY | 2024-08-03 09:37 | XMS_ITS | Continuity of Care Document ---
Author Organization [facility] Address [address] [place] [address]- Care Team Providers Care Bulk Truck Driver Name Role Phone Santos Briceño MD Primary Care Physician Encounter [facility] [id number] Date(s): 04/30/24 - 07/04/24 [facility] [address] [place], [place] [address] Discharge Disposition: A-D/C Home Attending Physician: Mynor Tse MD Admitting Physician: Mynor Tse MD Referring Physician: Santos Briceño MD Encounter Type: Disch Recurring OP Allergies, Adverse Reactions, Alerts Substance Criticality Severity Reaction Reaction Severity Status codeine Active Medications Samira By Mouth, 0 Refills, Maintenance, 01/31/22 10:39:00 AM EDT, Partial fill upon patient request if theprescription is for a schedule II opioid drug. Start Date: 01/31/22 Status: Ordered Repeat number: 1 aspirin 81 mg oral capsule 1 capsule = 81 mg, By Mouth, Every 4 hours, 0 Refills, Maintenance, 01/31/22 10:37:00 AM EDT, Partial fill upon patient request if the prescription is for a schedule II opioid drug. Start Date: 01/31/22 Status: Ordered Repeat number: 1 Diltiazem 0 Refills, Maintenance, 01/31/22 10:38:00 AM EDT, Partial fill upon patient request if the prescription is for a schedule II opioid drug. Start Date: 01/31/22 Status: Ordered Repeat number: 1 Fish Oil By Mouth, 0 Refills, Maintenance, 01/31/22 10:38:00 AM EDT, Partial fill upon patient request if theprescription is for a schedule II opioid drug. Start Date: 01/31/22 Status: Ordered Repeat number: 1 Flax Seed Oil 0 Refills, Maintenance, 01/31/22 10:39:00 AM EDT, Partial fill upon patient request if the prescription is for a schedule II opioid drug. Start Date: 01/31/22 Status: Ordered Repeat number: 1 GlipiZIDE By Mouth, Daily, 0 Refills, Maintenance, 01/31/22 10:38:00 AM EDT, Partial fill upon patient requestif the prescription is for a schedule II opioid drug. Start Date: 01/31/22 Status: Ordered Repeat number: 1 Jardiance 10 mg oral tablet 1 tablet = 10 mg, By Mouth, Daily in AM, 0 Refills, Maintenance, 05/04/24 1:36:00 PM EST, Partial fill upon patient request if the prescription is for a schedule II opioid drug. Start Date: 05/04/24 Status: Ordered Repeat number: 1 Lactaid 0 Refills, Maintenance, 11/04/23 1:10:00 PM EDT, Partial fill upon patient request if the prescription is for a schedule II opioid drug. Start Date: 11/04/23 Status: Ordered Repeat number: 1 Losartan By Mouth, Daily, 0 Refills, Maintenance, 01/31/22 10:38:00 AM EDT, Partial fill upon patient requestif the prescription is for a schedule II opioid drug. Start Date: 01/31/22 Status: Ordered Repeat number: 1 Misc Rx Refills 0, Maintenance, apple cider vinegar, 11/04/23 1:10:00 PM EDT, Supply Start Date: 11/04/23 Status: Ordered Repeat number: 1 pantoprazole 40 mg oral delayed release tablet 1 tablet, By Mouth, Daily, # 90 tablet, 4 Refills, Maintenance, 04/14/24 2:50:00 PM EST, 171.9, cm, 11/04/23 13:05:00 EDT, Height, 87.7, kg, 11/04/23 13:05:00 EDT, Dry Weight Start Date: 04/14/24 Status: Ordered Quantity: 90.0 Unit: tablet Repeat number: 1 Vitamin C By Mouth, Daily, 0 Refills, Maintenance, 01/31/22 10:38:00 AM EDT, Partial fill upon patient requestif the prescription is for a schedule II opioid drug. Start Date: 01/31/22 Status: Ordered Repeat number: 1 Vitamin D3 400 intl units oral capsule 1 capsule = 10 mcg, By Mouth, Daily, 0 Refills, Maintenance, 01/31/22 10:38:00 AM EDT, Partial fill upon patient request if the prescription is for a schedule II opioid drug. Start Date: 01/31/22 Status: Ordered Repeat number: 1 Vital Signs Most recent to oldest [Reference Range]: 1 Height 171.9 cm (05/04/24 12:57 PM) Weight 84.3 kg (05/04/24 12:57 PM) Oxygen Saturation [94-100 %] 97 % (05/04/24 12:57 PM) Pulse Rate [55-90 bpm] 69 bpm (05/04/24 12:57 PM) Body Mass Index [18.5-24.99 kg/m2] 28.53 kg/m2 *H* (05/04/24 12:57 PM) Blood Pressure [90-138/55-84 mm Hg] 150/ 65mm Hg *H* (05/04/24 12:57 PM) Temperature [96.8-100.4 DegF] 97.8 DegF (05/04/24 12:57 PM) Mode of Delivery (Oxygen) Room air (05/04/24 12:57 PM) Blood pressure sites Arm, left (05/04/24 12:57 PM) Temperature Route Temporal (05/04/24 12:57 PM) Dry Weight 84.3 kg (05/04/24 12:57 PM) Weight Obtained Via Standing scale (05/04/24 12:57 PM) Dry Weight Obtained Via Standing scale (05/04/24 12:57 PM) Patient Care team information Care Team Personnel Name: Santos Briceño MD Position: [facility] Outreach Member Role: PCP Address: [address] Santos Briceño [place] [address]- [employer]: Name: Mynor Tse MD Position: [facility] Physician - Oncology Med Service: Hematology & Oncology Member Role: Admitting Physician Address: [address] [place] [address] [place] [address]- Tele[employer]: Insurance Providers Guarantor name: CARSON MAHARAJ Health Plan Information #: 2 Payer: [facility] Member Number: [id number] Policy Number: NA Group Number: [id number] Health Plan Information #: 1 Payer: MEDICARE PART B OUTPT Member Number: [id number] Policy Number: NA Group Number: NA
[2024-08-03 10:03] LABS: MANUAL DIFF FLAG NO
[2024-08-03 10:10] LABS: Basophils Absolute Auto 0.1 X10*3/uL (0.0-0.2); Basophils Percent Auto 0.9 % (0-2); Eosinophils Absolute Auto 0.4 X10*3/uL (0.0-0.4); Eosinophils Percent Auto 3.8 % (0-4); Hematocrit 49.3 % (42.0-52.0); Hemoglobin 16.1 g/dl (14.0-18.0); Imm Gran Abs Auto 0.03 X10*3/uL (0.00-0.03); Imm Gran Pct Auto 0.3 % (0.0-0.4); Lymphocytes Absolute Auto 2.7 X10*3/uL (1.2-4.9); Lymphocytes Percent Auto 29.9 % (20-40); Mean Corpuscular HGB Conc 32.7 g/dl (31.0-36.0); Mean Corpuscular Volume 88.8 fL (80.0-98.0); Mean Platelet Volume 11.4 fL (9.4-12.4); Monocytes Percent Auto 10.5 % (2-11); Neutrophils Percent Auto 54.6 % (45-73); Platelet Count 223 X10*3/uL (160-400); Red Blood Count 5.55 X10*6/uL (4.60-5.80); White Blood Count 9.2 X10*3/uL (4.8-10.8)
[2024-08-03 10:10] LABS: Appearance Urine Clear; Color Urine Yellow; Glucose Urine UA >=1000 mg/dL (Negative); Leukocyte Esterase Urine Negative (Negative); Nitrite Urine Negative (Negative); Specific Gravity - Urine >= 1.030 (1.005-1.025); UMIC TRIGGER UA YES; Urine Blood Negative (Negative); Urine Ketones Negative (Negative); Urine Protein Negative (Neg-Trace)
[2024-08-03 10:14] LABS: Bacteria Urine None Seen (None Seen); Hyaline Casts Urine 0-2 /LPF (0-2); RBC Urine 0-2 /HPF (0-2); Squamous Epithelial Cell Urine 0-2 /HPF (0-2); WBC Urine 0-5 /HPF (0-5)
[2024-08-03 10:23] LABS: Estimated Average Glucose 154 mg/dL; Hemoglobin A1C 221.4111 umol/L; Total Hemoglobin (HGBA1C) 4138.2825 umol/L
[2024-08-03 10:45] LABS: Alanine Aminotransferase 19 U/L (0-40); Albumin Level 3.8 g/dL (3.5-5.0); Alkaline Phosphatase 85 U/L (39-117); Anion Gap 13 (12-20); Aspartate Amino Transferase 22 U/L (5-37); Bilirubin Total 0.7 mg/dL (0.0-1.0); Blood Urea Nitrogen 13 mg/dL (9-16); Calcium 9.1 mg/dL (8.4-10.2); Carbon Dioxide 23 mmol/L (22-29); Chloride 110 mmol/L (96-108); Cholesterol 167 mg/dL (<200); Estimated Glomerular Filt Rate > 60; Glucose Fasting 121 mg/dL (60-99); HDL Cholesterol 35 mg/dL (>40); LDL Cholesterol Calculated 114 mg/dL (<100); Potassium 4.1 mmol/L (3.3-5.1); Sodium 142 mmol/L (135-145); Triglycerides 92 mg/dL (<150)
[2024-08-03 10:47] LABS: Creatinine Urine 125.52 mg/dL; Microalbum/Creatinine Ratio Ur 9.5 ug/mg cr (<30)
[2024-08-03 11:06] LABS: Prostate Specific Antigen 1.07 ng/mL (<0.05-4.0)
== END 2024-08-03 08:55 | disposition home or self-care (01) ==
LOC: HO.HMGCLDS 08:54
PROVIDERS: PCP Internal Medicine; Visit Provider Internal Medicine
DX: E11.9 Type 2 diabetes mellitus without complications (principal); I10 Essential (primary) hypertension; K21.9 Gastro-esophageal reflux disease without esophagitis; E78.00 Pure hypercholesterolemia, unspecified; Z12.5 Encounter for screening for malignant neoplasm of prostate
CPT/HCPCS: 36415; 80053; 80061; 81001; 82043; 82570; 83036; 84153; 85025

== ENCOUNTER 2024-09-10 11:46 | Outpatient (AMB) | payer MEDICARE, OTHER, SELFPAY ==
--- NOTE | 2024-09-10 12:18 | AM.OFFWIN_ITS ---
Intake Vital Signs 09/10/24 12:21 Height 5 ft 10 in Weight 186 lb BMI 26.7 BP 120/74 Blood Pressure Location Lt brachial Position Sitting Respiration 18 Pulse 90 Pulse Source Pulse Oximeter Temp 98.7 F Temp Source Oral Pulse Oximetry (%) 95 Oxygen Delivery Method Room Air Intake Visit Reasons: EP Rash all over hands Intake Note: Pt is here today for a walk in visit. Pt c/o itchy rash on his hands since June and its getting worse Allergies codeine [Codeine] Allergy (Mild, Unverified 09/10/24 12:22) UNKNOWN egg Allergy (Verified 09/10/24 12:23) Rash triamcinolone Allergy (Verified 09/10/24 12:23) Rash fragrance Allergy (Uncoded 09/10/24 12:23) Rash HPI EP Rash all over hands HPI Details This is a 78-year-old male patient who presents to the walk-in clinic today with a nearly four-month history of splotchy, red, itchy rash on the backs of both of his hands. He can not identify anything that started this rash. He has switched to all no-fragrance, mild soaps and shampoos etc., and still the rash remains. He has used [id number] eczema cream and CeraVe without relief. 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 He tried to get into [facility], however needed a referral, and his PCP recently retired, so he was unable to have this referral sent. He states rash is very itchy, however does not necessarily hurt. He has been taking Benadryl at night to help with the itching. Review of Systems Const All systems reviewed & are unremarkable except as noted in HPI and below Physical Exam Vital Signs: Last Vital Signs Temp 98.7 F 09/10/24 12:21 Pulse 90 09/10/24 12:21 Resp 18 09/10/24 12:21 BP 120/74 09/10/24 12:21 Pulse Ox 95 09/10/24 12:21 Oxygen Delivery Method Room Air 09/10/24 12:21 BMI result Body Mass Index 26.7 Const General: cooperative, healthy appearing, comfortable and no acute distress HEENT Head: Yes normal to inspection Resp Effort & Inspection: normal respiratory effort Skin Other: Blotchy, erythematous rash on dorsal aspect of both hands. Some areas have well-defined borders suggestive of tinea. No rash on other parts of the body or palms of hands. No satellite lesions Extrem General: Yes capillary refill normal and Yes no clubbing, cyanosis or edema Psych Appearance: grossly normal Mental Status: mental status grossly normal Speech and movement: Normal speech and movement present Assessment & Plan Assessment & Plan (1) Rash of both hands: Code(s): R21 - Rash and other nonspecific skin eruption Plan: Patient has significant erythematous, pruritic rash on dorsal aspect of both hands. We reviewed possible exposure sources. He has used all mild products/soaps and still rash has remained for 4 months. I am unsure if this is a dermatitis vs. tinea. We discussed a plan to try an antifungal cream on one hand and a TCO on the other, and see if there is any benefit. If so, he can switch the exclusive use of the cream that is effective. I will also refer him to an alternate Derm office since [facility] has a very long wait. I am going to prescribe hydroxyzine to see if this provides some benefit for the itching at night. We reviewed indications, use, possible side effects of medication and topical creams prescribed. If he does not improve, he can return to the office for follow-up. All questions were answered and patient verbalizes understanding and agrees to plan. Orders: Referrals Dermatology Referral R21 - Rash and other nonspecific skin eruption Medications: New ketoconazole 2% Apply to rash twice a day. 1 appl topical BID 30 grams 1RF R21 - Rash and other nonspecific skin eruption hydrocortisone 2.5% Apply to affected area twice a day. 1 appl topical BID PRN 30 grams 1RF skin irritation R21 - Rash and other nonspecific skin eruption hydroxyzine HCl 25 mg PO BEDTIME 14 tabs 0RF R21 - Rash and other nonspecific skin eruption Coding Level of Care Code Est Pt Level 4 (18485) Diagnoses Rash of both hands R21
[2024-09-10 12:21] VITALS: BP 120/74; PULSE 90; RESP 18; TEMP 37.1; O2SAT 95; BMI 26.7
--- OUTSIDE RECORDS SUMMARY | 2024-09-10 13:49 | XMS_ITS ---
Author Organization [facility] Address [address] [place] [address] Care Team Providers Care Diploma Maker Name Role Phone Navarro VEGA, Santos Primary Care Provider Ruslan Dougherty Jr REASON FOR VISIT worley's Encounters Encounter Location Date Provider Diagnosis [facility] [address] [place] [address] 09/25/2023 Ruslan Tirado Jr Plan Of Treatment Next Appt Details Provider Name:Ruslan ellsworth Jr, 09/23/2024 01:15:00 PM, [address], [address], [place], [address], Progress Notes * CARSON MAHARAJ RDOB: (78 yo M)Acc No.[id number]:09/25/2023 Progress Notes Patient:?CARSON MAHARAJ Provider:?Ruslan Tirado MD :1945???Age:77 Y???Sex:Male Thor e:09/25/2023 Address:[address] [place], [place] [id number] Pcp:Santos Briceño MD Subjective: * Chief Complaints: [...] MD Date:?0 09/25/2023 Generated for Ruma bee/Gisele/Mic on:?09/10/2024 01:48 PM EDT
--- OUTSIDE RECORDS SUMMARY | 2024-09-10 13:49 | XMS_ITS ---
Author Organization [facility] Address [address] [place] [address] Care Team Providers Care Cartographic Engineer Name Role Phone Santos Briceño MD Primary [...] Problem Status W/U Status Risk Notes Problem 951511035 Colon cancer screening (Z12.11) Active confirmed Vital Signs Blood pressure systolic 00 mm Hg 09/18/19 24 Blood pressure diastolic 00 mm Hg 024 Height 69 in 09/18/2023 Weight 193 lbs 09/18/2023 BMI 28.50 kg/m2 09/18/2023 Encounters Encounter Location Date Provider Diagnosis [facility] [address] [place] [address] 09/18/2023 Ruslan Tirado Jr Primary pancreatic neuroendocrine [...] 01:15:00 PM, [address], [address], [place], [address], Progress Notes * CARSON BRAUN RDOB: 7 (77 yo M)Acc No.[id number]:09/18/2023 Progress Notes Patient:CARSON ALFARO Provider:?Ruslan Tirado MD :1945???Age:77 Y???Sex:Male Thor e:09/18/2023 Address:[address] [place] [address] Pcp:Santos Briceño MD Subjective: * Chief Complaints: [...] Tirado MD Date:?0 09/18/2023 Generated for Ruma bee/Gisele/eTransmitting on:?09/10/2024 01:49 PM EDT History and Physical Notes * HPI [...]
--- OUTSIDE RECORDS SUMMARY | 2024-09-10 13:49 | XMS_ITS | Patient Health Record ---
Author Organization [facility] Address [address] [place] [address] Care Team Providers Care Hopper Operator Name Role Phone Santos Briceño MD [...] Problem Status W/U Status Risk Notes Problem 573822333 Colon cancer screening (Z12.11) Active confirmed Problem 781283304 Gastroesophageal reflux disease with esophagitis without hemorrhage (K21.00) Active confirmed Problem 452438497 Primary pancreat ic neuroendocrine tumor (D3A.8) Active confirmed Vital Signs Blood pressure diastolic 00 mm Hg 09/18/2023 Height 69 in 09/18/2023 Blood pressure systolic 00 mm Hg 09/18/2023 Weight 193 lbs 09/18/2023 BMI 28.50 kg/m2 09/18/2023 Encounters Encounter Location Date Provider Diagnosis [facility] [address] [place] [address] 09/18/2023 Ruslan Tirado Jr Primary pancreatic neuroendocrine [...] PM, [address], [address], [place], [address], Insurance Providers Payer Name Payer Address Payer Phone Subscriber Number Group Number Insured Name Patient Relationship to Insured Coverage Start Date Coverage End Date MEDICARE OF [place] [address] [place] [id number] NICKOCARSON WOOD Self - patient is the insured [employer] ([employer]) [address] [place] [address] [id number] NICKOCARSON WOOD Self - patient is the insured Medical [...]
== END 2024-09-10 13:16 | disposition home or self-care (01) ==
PROVIDERS: PCP Internal Medicine; Visit Provider Nurse Practitioner Family
DX: R21 Rash and other nonspecific skin eruption (principal)

== ENCOUNTER → 2024-09-10 11:46 | Outpatient (BNVA) | payer MEDICARE, OTHER, SELFPAY | PROVIDERS: PCP Internal Medicine | DX: R21 Rash and other nonspecific skin eruption (principal) | CPT/HCPCS: 99212 ==

== ENCOUNTER 2024-10-06 13:55 | Outpatient (AMB) | payer MEDICARE, OTHER, SELFPAY ==
[2024-10-06 14:08] VITALS: BP 120/70; PULSE 78; TEMP 36.6; O2SAT 95; BMI 27.1
--- NOTE | 2024-10-06 14:08 | MHC.PC.OV ---
Vital Signs 10/06/24 14:08 Height 5 ft 10 in Weight 189 lb BMI 27.1 BP 120/70 Blood Pressure Location Lt brachial Position Sitting Pulse 78 Pulse Source Pulse Oximeter Temp 98 F Temp Source Axillary Pulse Oximetry (%) 95 Oxygen Delivery Method Room Air Intake Visit Reasons: Pre- Op Dr Alcaraz Wastewater Treatment Engineer Required: No Accompanied by: Self / Same As Patient Allergies empagliflozin [From Jardiance] Allergy (Severe, Verified 10/06/24 15:16) hematuria egg Allergy (Intermediate, Verified 10/06/24 15:16) Rash triamcinolone Allergy (Intermediate, Verified 10/06/24 15:16) Rash codeine [Codeine] Allergy (Unknown, Verified 10/06/24 15:16) UNKNOWN fragrance Allergy (Intermediate, Uncoded 10/06/24 15:16) Rash Tobacco use date assessed: 10/06/24 Fall risk assessment: No Falls in past year Last assessed Fall Risk: 10/06/24 Dental Screening Dental Screen Date: 10/06/24 Did you have a dental visit in the last 12 months?: Yes Did you have a dental problem in the last 6 months where you did not have access to dental care?: No HPI Pre- Op Dr Alcaraz HPI Details 78-year-old male presents to the office requesting preop clearance. Patient is scheduled for bilateral cataract extraction sequentially in a few weeks. Procedure is to be done under [facility]. [facility] Medical History 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 Social History Housing: House Patient Tobacco Use Status: Never used Tobacco e-Cigarette/Vaping Use: Former Use Muslim Healthcare Practices: Worship Advance Directives Information Provided: Yes (as above noted) Advance Directives on File: No service: No Current occupational status: retired Cognitive needs: No Hearing needs: No Vision needs: Yes (rx glasses) Questionnaire PHQ-9 Over the last 2 weeks, how often have you been bothered by any of the following problems? 1. Little interest or pleasure in doing things: not at all 2. Feeling down, depressed, or hopeless: not at all 3. Trouble falling or staying asleep, or sleeping too much: not at all 4. Feeling tired or having little energy: not at all 5. Poor appetite or overeating: not at all 6. Feeling bad about yourself - or that you are a failure or have let yourself or your family down: not at all 7. Trouble concentrating on things, such as reading the newspaper or watching television: not at all 8. Moving or speaking so slowly that other people could have noticed. Or the opposite - being so fidgety or restless that you have been moving around a lot more than usual: not at all 9. Thoughts that you would be better off or of hurting yourself in some way: not at all Total score: 0 Depression Screening Interpretation: Negative Depression Screening Done: Yes Source: Developed by Drs. Seng Carson, Kristen Noonan, Harlan Shields and colleagues, with an educational gage from [employer]. Thrive Questionnaire Date Thrive assessed: 10/06/24 I am a: Patient Within the past 12 months, did the food you bought not last and you didn't have the money to get more?: Never true Within the past 12 months, did you worry whether your food would run out before you got money to buy more?: Never true Do you have trouble paying for medicines?: No Do you have trouble getting transportation to medical appointments?: No Do you have trouble paying your heating and electricity bill?: No Do you have trouble taking care of your child, family member or friend?: No Do you have trouble with day-to-day activities such as bathing, preparing meals, shopping, managing finances, etc.?: No Are you currently unemployed and looking for a job?: No Are you interested in more education?: No Currently or been in a relationship where the following occur: No concerns reported THRIVE Score: 0 AUDIT C Alcohol Use Questionnaire (AUDIT-C) 1. How often do you have a drink containing alcohol?: Monthly or less 2. How many drinks containing alcohol do you have on a typical day when you are drinking?: 1 or 2 3. How often do you have six or more drinks on one occasion?: Less than monthly Total Score: 2 DARIUSZ-7 AMB Questionnaire DARIUSZ-7 Date DARIUSZ - 7 assessed: 10/06/24 Feeling nervous, anxious, or on edge: 0 = Not at all Not being able to stop or control worryin = Not at all Worrying too much about different things: 0 = Not at all Trouble relaxin = Not at all Being so restless that it is hard to sit still: 0 = Not at all Becoming easily annoyed or irritable: 0 = Not at all Feeling afraid as if something awful might happen: 0 = Not at all Total DARIUSZ-7 score (0-4 normal; 5-9 mild; 10-14 moderate; 15-21 severe): 0 Source: Developed by Drs. Seng Carson, Kristen Noonan, Harlan Shields and colleagues, with an educational gage from [employer]. Physical exam (Primary Care) Vital Signs: Last Vital Signs Temp 98 F 10/06/24 14:08 Pulse 78 10/06/24 14:08 BP 120/70 10/06/24 14:08 Pulse Ox 95 10/06/24 14:08 Oxygen Delivery Method Room Air 10/06/24 14:08 Care Plan Goal for BP management: Blood pressure is in range. BMI result Body Mass Index 27.1 Tobacco/Smoking Status: Tobacco use Status Tobacco use date assessed 10/06/24 10/06/24 14:16 Patient Tobacco Use Status Former Tobacco user 10/06/24 14:38 e-Cigarette/Vaping Use Former Use 10/06/24 14:38 PHQ-9: PHQ-9 Score PHQ-9: Total score 0 10/06/24 14:38 Depression Screening Interpretation: Negative Thrive Assessment: Date of Thrive Assessment Date Thrive assessed 10/06/24 10/06/24 14:16 Currently or been in a relationship where the following occur: No concerns reported Const General: cooperative and healthy appearing Nutritional Appearance: well nourished Orientation/consciousness: patient oriented x3 Limitations: no limitations HENMT Head: Yes normal to inspection Eyes General: appearance normal, both eyes and all related structures Neck Neck: Yes normal visual inspection Chest Chest palpation & inspection: normal palpation of entire chest wall Resp Effort & Inspection: normal respiratory effort Neuro General: patient oriented x3 Coding Level of Care Code New Pt Level 4 (52153) Complex EM visit Add On G2211 Diagnoses Pre-operative clearance Z01.818 Diabetes mellitus E11.9 Assessment & Plan Assessment & Plan (1) Pre-operative clearance: Code(s): Z01.818 - Encounter for other preprocedural examination Plan: Blood work and EKG reviewed. Blood sugars are slightly high but patient can undergo the procedure under MAC. (2) Diabetes mellitus: Code(s): E11.9 - Type 2 diabetes mellitus without complications Plan: Blood sugars are elevated. We will adjust the medications after he completes the surgery. Orders: Orders Complete Blood Count no Diff Today E11.9 - Type 2 diabetes mellitus without complications, Z01.818 - Encounter for other preprocedural examination Basic Metabolic Panel Today E11.9 - Type 2 diabetes mellitus without complications, Z01.818 - Encounter for other preprocedural examination Lipid Panel Today E11.9 - Type 2 diabetes mellitus without complications, Z01.818 - Encounter for other preprocedural examination Thyroid Stimulating Hormone Today E11.9 - Type 2 diabetes mellitus without complications, Z01.818 - Encounter for other preprocedural examination Liver Panel Today E11.9 - Type 2 diabetes mellitus without complications, Z01.818 - Encounter for other preprocedural examination UA and rflx microscopic Today E11.9 - Type 2 diabetes mellitus without complications, Z01.818 - Encounter for other preprocedural examination Hemoglobin A1c Today E11.9 - Type 2 diabetes mellitus without complications, Z01.818 - Encounter for other preprocedural examination ECG 12 lead EKG 10/06/24 Z01.818 - Encounter for other preprocedural examination Medications: New metformin 1,000 mg (2 x 500 mg) PO DAILY 180 tabs 0RF 90 days
== END 2024-10-06 14:56 | disposition home or self-care (01) ==
LOC: HO.HMCHD 13:55
PROVIDERS: PCP Internal Medicine; Visit Provider Internal Medicine
DX: Z01.818 Encounter for other preprocedural examination (principal); E11.9 Type 2 diabetes mellitus without complications

== ENCOUNTER → 2024-10-06 13:55 | Outpatient (REF) | payer MEDICARE, OTHER, SELFPAY ==
--- NOTE | 2024-10-06 15:34 | ECG_ITS ---
Test Reason : PRE OP Blood Pressure : */* mmHG Vent. Rate : 69 BPM Atrial Rate : 69 BPM P-R Int : 220 ms QRS Dur : 102 ms QT Int : 392 ms P-R-T Axes : 76 -27 0 degrees QTcB Int : 420 ms Sinus rhythm with 1st degree A-V block Inferior infarct , age undetermined Abnormal ECG When compared with ECG of 26-Sep-2008 08:32, No significant changes seen Referred By: Alvino Henry Electronically Signed By: Schuyler Pittman
== END ==
LOC: HO.CARD 13:55
PROVIDERS: PCP Internal Medicine; Visit Provider Internal Medicine
DX: Z01.818 Encounter for other preprocedural examination (principal); E11.9 Type 2 diabetes mellitus without complications
CPT/HCPCS: 93005; 99202

== ENCOUNTER → 2024-10-06 15:34 | Outpatient (BNV) | payer MEDICARE, OTHER, SELFPAY | PROVIDERS: PCP Internal Medicine; Visit Provider Internal Medicine Cardiovascular Disease | DX: I44.0 Atrioventricular block, first degree (principal) | CPT/HCPCS: 93010 ==

== ENCOUNTER 2024-10-07 08:26 | Outpatient (REF) | payer MEDICARE, OTHER, SELFPAY ==
[2024-10-07 10:12] LABS: Hematocrit 42.6 % (42.0-52.0); Hemoglobin 14.4 g/dl (14.0-18.0); Mean Corpuscular HGB Conc 33.8 g/dl (31.0-36.0); Mean Corpuscular Hemoglobin 29.6 pg (27.0-33.0); Mean Corpuscular Volume 87.5 fL (80.0-98.0); Mean Platelet Volume 10.9 fL (9.4-12.4); Platelet Count 248 X10*3/uL (160-400); Red Blood Count 4.87 X10*6/uL (4.60-5.80); Red Cell Distribution Width 13.9 % (11.0-16.0); White Blood Count 12.9 X10*3/uL (4.8-10.8)
[2024-10-07 10:39] LABS: Estimated Average Glucose 166 mg/dL; Hemoglobin A1C 212.0392 umol/L; Hemoglobin A1c % 7.4 % (<6.0); Total Hemoglobin (HGBA1C) 3731.2202 umol/L
[2024-10-07 10:51] LABS: Alanine Aminotransferase 19 U/L (0-40); Albumin Level 3.8 g/dL (3.5-5.0); Alkaline Phosphatase 90 U/L (39-117); Anion Gap 13 (12-20); Aspartate Amino Transferase 20 U/L (5-37); Bilirubin Direct 0.2 mg/dL (0.0-0.5); Bilirubin Total 0.6 mg/dL (0.0-1.0); Blood Urea Nitrogen 18 mg/dL (9-16); Carbon Dioxide 23 mmol/L (22-29); Chloride 108 mmol/L (96-108); Cholesterol 171 mg/dL (<200); Estimated Glomerular Filt Rate > 60; Glucose Random 119 mg/dL (60-115); HDL Cholesterol 38 mg/dL (>40); LDL Cholesterol Calculated 113 mg/dL (<100); Sodium 140 mmol/L (135-145); Thyroid Stimulating Hormone 1.89 uIU/mL (0.32-4.0); Total Protein 6.6 g/dL (6.5-8.0); Triglycerides 103 mg/dL (<150)
[2024-10-07 11:04] LABS: Appearance Urine Clear; Color Urine Yellow; Glucose Urine UA Negative (Negative); Leukocyte Esterase Urine Negative (Negative); Nitrite Urine Negative (Negative); PH 5.5 (5.0-9.0); Specific Gravity - Urine 1.025 (1.005-1.025); Urine Blood Negative (Negative); Urine Ketones Trace mg/dL (Negative); Urine Protein Negative (Neg-Trace)
== END 2024-10-07 08:27 | disposition home or self-care (01) ==
LOC: HO.HMGCLDS 08:26
PROVIDERS: PCP Internal Medicine; Visit Provider Internal Medicine
DX: Z01.818 Encounter for other preprocedural examination (principal); E11.9 Type 2 diabetes mellitus without complications
CPT/HCPCS: 36415; 80048; 80061; 80076; 81003; 83036; 84443; 85027

== ENCOUNTER 2024-10-11 08:10 | Day surgery (SDC) | payer MEDICARE, OTHER, SELFPAY ==
--- OUTSIDE RECORDS SUMMARY | 2024-08-18 06:28 | XMS_ITS | Patient Health Record ---
Author Organization [facility] Address [address] [place] [address] Care Team Providers Care Fitness Coach Name Role Phone Santos Briceño MD Primary Care Provider Ruslan Dougherty Jr Unavailable [phone] Allergies Allergen (clinical drug ingredient) Drug/Non Drug Allergy documented on EMR Reaction Allergy Type Onset Date Status triamcinolone Triamcinolone Unknown Drug Allergy Active Fragrance Unknown Allergy Active codeine Codeine Sulfate Unknown Drug Allergy A ctive Reason For Referral No Information Medications Medication SIG (Take, Route, Frequency, Duration) Notes [...] 1000mg Active Vitamin D3 1000iu Ac tive Social History Tobacco Use: Social History Observation Description Date Details (start date - stop date) Former Smoker NA - NA Tobacco Use/Smoking Question Answer Notes Patient is a former smoker How long has it been since you last smoked? > 10 years Problems Problem Type SNOMED Code ICD Code Onset Dates Problem Status W/U Status Risk Notes Problem 433792073 Colon cancer screening (Z12.11) Active confirmed Problem 806128018 Gastroesophageal reflux disease with esophagitis without hemorrhage (K21.00) Active confirmed Problem 701126881 Primary pancreat ic neuroendocrine tumor (D3A.8) Active confirmed Vital Signs Blood pressure diastolic 00 mm Hg 09/18/2023 Height 69 in 09/18/2023 Blood pressure systolic 00 mm Hg 09/18/2023 Weight 193 lbs 09/18/2023 BMI 28.50 kg/m2 09/18/2023 Encounters Encounter Location Date Provider Diagnosis [facility] [address] [place] [address] 09/18/2023 Ruslan Triado Jr Primary pancreatic neuroendocrine tumor D3A.8 ; Gastroesophageal reflux disease with esophagitis without hemorrhage K21.00 and Colon cancer screening Z12.11 Assessments Encounter Date Diagnosis (ICD Code) Assessment Notes Treatment Notes Treatment Clinical Notes Section Notes 09/18/2023 Gastroesophageal reflux disease with esophagitis without hemorrhage (ICD-10 - K21.00) Gastroesophageal reflux disease material was printed Currently he is doing well. Reflux symptoms are under good control. He will continue pantoprazole for the time being. He will followup with Dr. Tse for his pancreatic neuroendocrine tumor. We reviewed the anatomy of this today. Colon cancer screening is due, and he declines this at this time based on his lack of symptoms and age. Followup will be in one year. 09/18/2023 Primary pancreatic neuroendocrine tumor (ICD-10 - D3A.8) Currently he is doing well. Reflux symptoms are under good control. He will continue pantoprazole for the time being. He will followup with Dr. Tse for his pancreatic neuroendocrine tumor. We reviewed the anatomy of this today. Colon cancer screening is due, and he declines this at this time based on his lack of symptoms and age. Followup will be in one year. 09/18/2023 Colon cancer screening (ICD-10 - Z12.11) Currently he is doing well. Reflux symptoms are under good control. He will continue pantoprazole for the time being. He will followup with Dr. Tse for his pancreatic neuroendocrine tumor. We reviewed the anatomy of this today. Colon cancer screening is due, and he declines this at this time based on his lack of symptoms and age. Followup will be in one year. Plan Of Treatment Future Test Test Name Order Date COLONOSCOPY 09/17/2013 Next Appt Details Provider Name:Ruslan ellsworth Jr, 09/23/2024 01:15:00 PM, [address], [address], [place], [address], Insurance Providers Payer Name Payer Address Payer Phone Subscriber Number Group Number Insured Name Patient Relationship to Insured Coverage Start Date Coverage End Date MEDICARE OF [place] [address] [place] [address] [id number] CARSON MAHARAJ Self - patient is the insured [facility] [employer] [address] [place] [address] [id number] CARSON MAHARAJ Self - patient is the insured Medical (General) History Medical History History ICD Code hypertension Hypercholesterolemia nasal polyps Colonoscopy 12/08/13, hyperpla stic polyp, ten-year followup (prior history of adenomas) chronic inflammatory demyeli nating polyneuropathy, treated with intravenous immunoglobulin TIA type II diabetes Pancreatic cystic tail [address], 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
--- OUTSIDE RECORDS SUMMARY | 2024-08-18 06:28 | XMS_ITS ---
Author Organization [facility] Address [address] [place] [address] Care Team Providers Care Graduate Internship Name Role Phone Navarro VEGA, Santos Primary Care Provider Ruslan Dougherty Jr REASON FOR VISIT worley's Encounters Encounter Location Date Provider Diagnosis [facility] [address] [place] [address] 09/25/2023 Ruslan Tirado Jr Plan Of Treatment Next Appt Details Provider Name:Ruslan ellsworth Jr, 09/23/2024 01:15:00 PM, [address], [address], [place], [address], Progress Notes * CARSON MAHARAJ RDOB: (78 yo M)Acc No.[id number]:09/25/2023 Progress Notes Patient:?CARSON MAHARAJ Provider:?Ruslan Tirado MD :1945???Age:77 Y???Sex:Male Thor e:09/25/2023 Address:[address] [place], [place] [id number] Pcp:Santos Briceño MD Subjective: * Chief Complaints: * ???1. Worley's. * Medical History:? Objective: * Vitals:? Assessment: Plan: * Treatment: * * The named appointment provid er may or may not be the originator of this progress note, and it is not deemed complete until electronically signed by the appointment provider. Sign off status: Pending * Provider:?Ruslan Tirado MD Date:?0 09/25/2023 Generated for Ruma bee/Gisele/Mic on:?08/18/2024 06:28 AM EDT
--- OUTSIDE RECORDS SUMMARY | 2024-08-18 06:29 | XMS_ITS ---
Author Organization [facility] Address [address] [place] [address] Care Team Providers Care Acquisition Advisor Name Role Phone Santos Briceño MD Primary Care Provider Ruslan Dougherty Jr Unavailable Allergies Allergen (clinical drug ingredient) Drug/Non Drug Allergy documented on EMR Reaction Allergy Type Onset Date Status triamcinolone Triamcinolone Unknown Drug Allergy Active Fragrance Unknown Allergy Active codeine Codeine Sulfate Unknown Drug Allergy A ctive REASON FOR VISIT Patient presents today for followup Medications Medication SIG (Take, Route, Frequency, Duration) [...] Problem Status W/U Status Risk Notes Problem [id number] Colon cancer screening (Z12.11) Active confirmed Vital Signs Blood pressure systolic 00 mm Hg 09/18/19 24 Blood pressure diastolic 00 mm Hg 024 Height 69 in 09/18/2023 Weight 193 lbs 09/18/2023 BMI 28.50 kg/m2 09/18/2023 Encounters Encounter Location Date Provider Diagnosis [facility] [address] [place] [address] 09/18/2023 Ruslan Tirado Jr Primary pancreatic neuroendocrine tumor D3A.8 ; Gastroesophageal reflux disease with esophagitis without hemorrhage K21.00 and Colon cancer screening Z12.11 Assessments Encounter Date Diagnosis (ICD Code) Assessment Notes Treatment Notes Treatment Clinical Notes Section Notes 09/18/2023 Primary pancreatic neuroendocrine tumor (ICD-10 [...] Followup will be in one year. 09/18/2023 Gastroesophageal reflux disease with esophagitis without [...] be in one year. Plan Of Treatment Treatment Notes Assessment Notes Gastroesophageal reflux dise ase with esophagitis without hemorrhage Gastroesophageal reflux disease material was printed Next Appt Details Follow Up: 1 Year, Reason: Provider Name:Ruslan ellsworth Jr, 09/23/2024 01:15:00 PM, [address], [address], [place], [address], Progress Notes * CARSON BRAUN RDOB: 7 (77 yo M)Acc No.[id number]:09/18/2023 Progress Notes Patient:CARSON ALFARO Provider:?Ruslan Tirado MD :1945???Age:77 Y???Sex:Male Thor e:09/18/2023 Address:[address] [place] [address] Pcp:Santos Briceño MD Subjective: * Chief Complaints: * ???1. Patient presents today for followup. * HPI: ???New symptom(s):? Mr. Braun is seen today in followup of gastroesophageal reflux disease, pancreatic neuroendocrine tumor and colon cancer screening. Since we saw him last she's been doing well. Reflux symptoms are under good control on pantoprazole 40 mg daily. He has no dysphagia, hematemesis, or melena. Weight and appetite have been stable. ?He is following up with Dr. Tse regarding his pancreatic lesion for MRI as needed. He remains asymptomatic from this. ?His last colonoscopy was 10 years ago. Followup is due this year. He has no complaints of rectal bleeding or change in his bowel habits. He prefers to defer this based on his age. We discussed colorectal cancer screening is optional in patients after age 75. * Medical History:?Hypertensio n, Hypercholesterolemia, Nasal polyps, Colonoscopy 12/08/13, hyperplastic polyp, ten-year followup (prior history of adenomas), Chronic inflammatory demyelinating polyneuropathy, treated with intravenous immunoglobulin, TIA, type II diabetes, Pancreatic cystic tail lesion, 04/30 EUS/FNA showing degenerative neuroendocrine tumor; current treatment: Observation, gastroesophageal reflux disease, erosive esophagitis at time of endoscopy 04/30, Hay fever. * Surgical History:?hernia rep air , nasal polypectomy . * Family History:?Father: dece ased.?Mother: .? no known hx of colon ca uncle colon ca? paternal , enviromental?. * Social History:?Tobacco Use:?Tobacco Use/Smoking?Patient is a?former smoker,?How long has it been since you last smoked??> 10 years.?Drugs/Alcohol:?Alcohol Screen?Points: 1, Interpretation: Negative.?Miscellaneous:?Marital status: . Occupation: retired. * Medications:?Taking Probioti c , Taking Biotin , Taking Apple Cider Vinegar , Taking Fish Oil 1200mg , Taking Flaxseed Oil 1000mg , Taking Vitamin C 1000mg , Taking Vitamin D3 1000iu , Taking glipiZIDE ER 10 MG Tablet Extended Release 24 Hour Oral , Taking Losartan Potassium 50 MG Tablet Oral , Taking dilTIAZem HCl ER Coated Beads 180 MG Capsule Extended Release 24 Hour TAKE 1 CAPSULE BY MOUTH EVERY DAY Oral , Taking Pantoprazole Sodium 40 MG Tablet Delayed Release TAKE 1 TABLET BY MOUTH DAILY Oral , Not-Taking/PRN Lactaid , Discontinued Zetia 10mg , Medication List reviewed and reconciled with the patient * Allergies:?Codeine Sulfate, Triamcinolone, Fragrance. Objective: * Vitals:?Wt: 193 lbs, Ht: 69 in, BMI:28.50 Index, BP: 00/00 mm Hg. * Examination: ???General Examination: ???On examination today, he appears well. Skin is anicteric. Lungs are clear. Heart shows regular rate and rhythm. Abdomen soft without focal masses or tenderness. Extremities are without edema. Assessment: * Assessment: 1.?Gastroesophageal reflux d isease with esophagitis without hemorrhage - K21.00 (Primary)?2.?Primary pancreatic neuroendocrine tumor - D3A.8?3.?Colon cancer screening - Z12.11? Currently he is doing well. Reflux symptoms are under good control. He will continue pantoprazole for the time being. He will followup with Dr. Tse for his pancreatic neuroendocrine tumor. We reviewed the anatomy of this today. Colon cancer screening is due, and he declines this at this time based on his lack of symptoms and age. Followup will be in one year. Plan: * Treatment: * Procedure Codes:?G9903 Pt sc rn tbco id as non user, G9744 PATIENT NOT ELIG D/T ACTIVE DX HTN * Preventive Medicine:? ??Counseling:?Care goal follow-up plan:?Above Normal BMI Follow-up?Giving encouragement to exercise,?BMI management provided?Yes.? * Follow Up:?1 Year * * Sign off status: Completed true * Provider:?Ruslan Tirado MD Date:?0 09/18/2023 Generated for Ruma bee/Gisele/Emmasmitting on:?08/18/2024 06:28 AM EDT History and Physical Notes * HPI (History of Present Illness) Category Sub-Category Detail Notes Category Not es New symptom(s) Mr. Braun is seen today in followup of gastroesophageal reflux disease, pancreatic neuroendocrine tumor and colon cancer screening. Since we saw him last she's been doing well. Reflux symptoms are under good control on pantoprazole 40 mg daily. He has no dysphagia, hematemesis, or melena. Weight and appetite have been stable. He is following up with Dr. Tse regarding his pancreatic lesion for MRI as needed. He remains asymptomatic from this. His last colonoscopy was 10 years ago. Followup is due this year. He has no complaints of rectal bleeding or change in his bowel habits. He prefers to defer this based on his age. We discussed colorectal cancer screening is optional in patients after age 75. Examination Category Sub-Category Detail Notes Category Not es General Examination On exami nation today, he appears well. Skin is anicteric. Lungs are clear. Heart shows regular rate and rhythm. Abdomen soft without focal masses or tenderness. Extremities are without edema.
[2024-10-07 08:32] VITALS: BMI 27.1
--- NOTE | 2024-10-07 10:35 | P.CONAN_ITS ---
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 Surgical History Surgical History (Updated 10/07/24 @ 08:40 by Kanchan Luna RN) History of esophagogastroduodenoscopy (EGD) History of colonoscopy (~12/08/13) Social History Social History Housing: House Patient Tobacco Use Status: Never used Tobacco e-Cigarette/Vaping Use: Former Use service: No Current occupational status: retired Cognitive needs: No Hearing needs: No Vision needs: Yes (rx glasses) Meds Allergies Allergy/AdvReac Type Severity Reaction Status Date / Time empagliflozin Allergy Severe hematuria Verified 10/06/24 15:16 [From Jardiance] egg Allergy Intermediate Rash Verified 10/06/24 15:16 triamcinolone Allergy Intermediate Rash Verified 10/06/24 15:16 codeine [Codeine] Allergy Unknown UNKNOWN Verified 10/06/24 15:16 fragrance Allergy Intermediate Rash Uncoded 10/06/24 15:16 Home Medications ?Medication ?Instructions ?Recorded ?Confirmed ?Last Taken ?Type diltiazem HCl 180 mg 180 mg PO DAILY 09/10/24 10/07/24 Unknown History capsule,extended release 24 hr glipizide 10 mg tablet, extended 10 mg PO BID 09/10/24 10/07/24 Unknown History release 24 hr losartan 50 mg tablet 50 mg PO DAILY 09/10/24 10/07/24 Unknown History pantoprazole 40 mg tablet,delayed 40 mg PO DAILY 09/10/24 10/07/24 Unknown History release mometasone 0.1 % topical ointment topical 10/06/24 Unknown History ascorbic acid (vitamin C) 500 mg 500 mg PO DAILY 10/07/24 10/07/24 Unknown History tablet (Vitamin C) aspirin 81 mg tablet,delayed 81 mg PO DAILY 10/07/24 10/07/24 Unknown History release cholecalciferol (vitamin D3) 10 10 mcg PO DAILY 10/07/24 10/07/24 Unknown History mcg (400 unit) capsule (Vitamin D3) hydroxyzine HCl 25 mg tablet 25 mg PO BEDTIME PRN itch 10/07/24 10/07/24 Unknown History omega-3 fatty acids-fish oil 684 1 cap PO DAILY 10/07/24 10/07/24 Unknown History mg-1,200 mg capsule,delayed release Exam Height,Weight and Vital Signs: Height 5 ft 10 in Weight 85.729 kg Assessment and Plan Assessment Anesthesia Assessment: Chart Reviewed
[2024-10-11] MEDS: Tetracaine HCl/PF 0.5% Oph Sol 4 ML DROPS 1 DROP EYE-RIGHT (09:33)
[2024-10-11] MEDS: Lactated Ringers 500 ML 50 ML IV (09:33)
[2024-10-11] MEDS: Cyclopentolate 1 % Ophth Sol 2 ML DRPBTL 1 DROP EYE-RIGHT ×3 (09:34→09:42)
[2024-10-11] MEDS: Phenylephrine HCL 2.5% Oph SoL 2 ML BOTTLE 1 DROP EYE-RIGHT ×3 (09:34→09:42)
[2024-10-11] MEDS: Tropicamide 1 % Ophth Sol 3 ML BTL 1 DROP EYE-RIGHT ×3 (09:34→09:42)
[2024-10-11] MEDS: Ketorolac Tromethamine 0.5% Op 5 ML DROPS 1 DROP EYE-RIGHT ×3 (09:34→09:42)
[2024-10-11 09:43] LABS: Glucose, Whole Blood 151 mg/dL (60-115)
[2024-10-11 09:48] VITALS: BP 136/98; PULSE 67; RESP 18; TEMP 36.7; O2SAT 94
--- NOTE | 2024-10-11 10:01 | HO.ANESPROP2 ---
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 Family history of problems with anesthesia: No Surgical History Surgical History History of esophagogastroduodenoscopy (EGD) History of colonoscopy (~12/08/13) History of Problems with Anesthesia: No Social History Social History Housing: House Patient Tobacco Use Status: Never used Tobacco e-Cigarette/Vaping Use: Former Use Pentecostalism Healthcare Practices: Synagogue Advance Directives Information Provided: Yes (as above noted) Advance Directives on File: No service: No Current occupational status: retired Cognitive needs: No Hearing needs: No Vision needs: Yes (rx glasses) Meds Allergies Allergy/AdvReac Type Severity Reaction Status Date / Time empagliflozin Allergy Severe hematuria Verified 10/06/24 15:16 [From Jardiance] egg Allergy Intermediate Rash Verified 10/06/24 15:16 triamcinolone Allergy Intermediate Rash Verified 10/06/24 15:16 codeine [Codeine] Allergy Unknown UNKNOWN Verified 10/06/24 15:16 fragrance Allergy Intermediate Rash Uncoded 10/06/24 15:16 Active Medications: Current Medications Lactated Ringer's (Lr) 500 mls @ 50 mls/hr IV .Q10H ZULMA Stop: 10/11/24 19:29 Last Admin: 10/11/24 09:33 Dose: 50 mls/hr Povidone Iodine (Povidone Iodine 5 % Ophth Soln 30 Ml Bottle) 1 appl EYE-RIGHT PREOP PRN PRN Reason: Pre-Op Surgical Implant Prophy Home Medications ?Medication ?Instructions ?Recorded ?Confirmed ?Last Taken ?Type diltiazem HCl 180 mg 180 mg PO DAILY 09/10/24 10/07/24 Unknown History capsule,extended release 24 hr glipizide 10 mg tablet, extended 10 mg PO BID 09/10/24 10/07/24 Unknown History release 24 hr losartan 50 mg tablet 50 mg PO DAILY 09/10/24 10/07/24 Unknown History pantoprazole 40 mg tablet,delayed 40 mg PO DAILY 09/10/24 10/07/24 Unknown History release mometasone 0.1 % topical ointment topical 10/06/24 Unknown History ascorbic acid (vitamin C) 500 mg 500 mg PO DAILY 10/07/24 10/07/24 Unknown History tablet (Vitamin C) aspirin 81 mg tablet,delayed 81 mg PO DAILY 10/07/24 10/07/24 Unknown History release cholecalciferol (vitamin D3) 10 10 mcg PO DAILY 10/07/24 10/07/24 Unknown History mcg (400 unit) capsule (Vitamin D3) hydroxyzine HCl 25 mg tablet 25 mg PO BEDTIME PRN itch 10/07/24 10/07/24 Unknown History omega-3 fatty acids-fish oil 684 1 cap PO DAILY 10/07/24 10/07/24 Unknown History mg-1,200 mg capsule,delayed release Exam Height,Weight and Vital Signs: Height 5 ft 10 in Weight 85.729 kg Last Vital Signs Temp 98.1 F 10/11/24 09:48 Pulse 67 10/11/24 09:48 Resp 18 10/11/24 09:48 BP 136/98 H 10/11/24 09:48 Pulse Ox 94 10/11/24 09:48 O2 Del Method Room Air 10/11/24 09:48 Pertinent Lab Results Pertinent Lab Results: Laboratory Tests 10/11/24 09:40 POC Glucose 151 H Airway Mallampati Class: II TM Dist: >3cm Neck ROM: Full Heart: RRR Lungs: CTA Assessment and Plan Assessment Anesthesia Assessment: Anesthesia Plan Discussed Final Anesthetic Review Family History of Problems with Anesthesia: No History of Problems with Anesthesia: No NPO: Yes ASA Class: III Final Preanesthetic Review: Meds/Allgs Chart Reviewed and Consent Obtained/Reviewed Patient Risk: Low Procedure Risk: Low Anesthetic Plan Anesthetic Plan: MAC: Disposition: Standard PACU
--- NOTE | 2024-10-11 10:32 | MHC.SHP ---
Pre-Procedural Eval Section A - 24 Hr Update-Section A only Date of Service: 10/11/24 The patient is an INPATIENT: No Changes since office visit: No Cold of Flu in the past 2 weeks, No New Medical Problems, No Changes in Medication and No Patient answered all questions The patient has been examined within 24 hours of the surgical procedure. The History & Physical has been completed within 30 days and I have reviewed it.: Yes Section B - Complete if H&P > 30 days Chief Complaint: Age-related nuclear cataract, right eye Allergies: Allergies Allergy/AdvReac Type Severity Reaction Status Date / Time empagliflozin Allergy Severe hematuria Verified 10/06/24 15:16 [From Jardiance] egg Allergy Intermediate Rash Verified 10/06/24 15:16 triamcinolone Allergy Intermediate Rash Verified 10/06/24 15:16 codeine [Codeine] Allergy Unknown UNKNOWN Verified 10/06/24 15:16 fragrance Allergy Intermediate Rash Uncoded 10/06/24 15:16 Plan Diagnosis/Plan: Unchanged I have reviewed the history and physical and performed a pertinent physical examination on my patient. No changes have occurred unless specified. Time Spent With Patient Time: Total time managing care of this patient today ____ minutes.
--- NOTE | 2024-10-11 10:33 | P.PCNO_ITS ---
Ophthalmology Procedure Procedure Date of Service: 10/11/24 Ophthalmology Viscoelastic: Healon Duet Dual Pack Pro Ophthalmology Lenses: IOL Acrysof MP - MA60AC (13) Procedure Notes: PREOPERATIVE DIAGNOSIS: Decreased visual acuity right eye secondary to cataract POSTOPERATIVE DIAGNOSIS: Same PROCEDURE: Right cataract extraction with intraocular lens insertion SURGEON: Jessee Valadez M.D. ANESTHESIA: Topical/MAC ESTIMATED BLOOD LOSS: None COMPLICATIONS: None After obtaining informed consent, the patient was brought to the operating room suite and placed in the supine position. After adequate sedation per anesthesia, topical drops of Tetracaine were given to the right eye. The eye was then prepped and draped in the usual sterile fashion. The operating room microscope was then positioned over the operative eye and a lid speculum placed. A paracentesis was created. Viscoelastic was then instilled into the anterior chamber. A three plane incision was then created temporally, utilizing a 2.85 mm keratome. Capsulotomy forceps were then utilized to create a circular tear capsulotomy. Hydrodissection and hydrodelineation were carried out until adequate mobilization of the nucleus occurred. Phacoemulsification was then utilized to remove the dense central nucl eus followed by removal of the cortical material utilizing the automated aspiration irrigation unit. Viscoelastic was instilled into the posterior capsular bag followed by placement of a posterior chamber intraocular lens without difficulty. The residual Viscoelastic was then removed utilizing the automated IA machine. The wound was checked and found to be watertight. The patient tolerated the procedure well and the lid speculum was removed. Intracameral injection of Vigamox 0.1 mL followed by a subtenon injection of Kenalog-40 0.2 mL were administered. The patient will be seen in the a.m.
[2024-10-11 10:59] VITALS: BP 135/58; PULSE 66; RESP 16; TEMP 36.3; O2SAT 94
== END 2024-10-11 11:12 | disposition home or self-care (01) ==
PROVIDERS: PCP Internal Medicine; Visit Provider Ophthalmology
PROC: (CPT 66985; principal; 2024-10-11 11:00)
DX: H25.11 Age-related nuclear cataract, right eye (principal); H54.7 Unspecified visual loss; I10 Essential (primary) hypertension; E11.9 Type 2 diabetes mellitus without complications; E78.00 Pure hypercholesterolemia, unspecified; G61.81 Chronic inflammatory demyelinating polyneuritis; R53.83 Other fatigue; Z79.84 Long term (current) use of oral hypoglycemic drugs; Z79.899 Other long term (current) drug therapy; Z88.5 Allergy status to narcotic agent; Z91.012 Allergy to eggs; Z87.891 Personal history of nicotine dependence
CPT/HCPCS: 66984; 82947; J2250; J3010; J3301; V2630

== ENCOUNTER 2024-10-25 09:04 | Day surgery (SDC) | payer MEDICARE, OTHER, SELFPAY ==
[2024-10-07 08:50] VITALS: BMI 27.1
--- NOTE | 2024-10-21 15:21 | HO.ANESPROP2 ---
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 Family history of problems with anesthesia: No Surgical History Surgical History History of esophagogastroduodenoscopy (EGD) History of colonoscopy (~12/08/13) History of Problems with Anesthesia: No Social History Social History Housing: House Patient Tobacco Use Status: Never used Tobacco e-Cigarette/Vaping Use: Former Use Anabaptism Healthcare Practices: Mormonism Advance Directives Information Provided: Yes (as above noted) Advance Directives on File: No service: No Current occupational status: retired Cognitive needs: No Hearing needs: No Vision needs: Yes (rx glasses) Meds Allergies Allergy/AdvReac Type Severity Reaction Status Date / Time empagliflozin Allergy Severe hematuria Verified 10/06/24 15:16 [From Jardiance] egg Allergy Intermediate Rash Verified 10/06/24 15:16 triamcinolone Allergy Intermediate Rash Verified 10/06/24 15:16 codeine [Codeine] Allergy Unknown UNKNOWN Verified 10/06/24 15:16 fragrance Allergy Intermediate Rash Uncoded 10/06/24 15:16 Home Medications ?Medication ?Instructions ?Recorded ?Confirmed ?Last Taken ?Type diltiazem HCl 180 mg 180 mg PO DAILY 09/10/24 10/07/24 Unknown History capsule,extended release 24 hr glipizide 10 mg tablet, extended 10 mg PO BID 09/10/24 10/07/24 Unknown History release 24 hr losartan 50 mg tablet 50 mg PO DAILY 09/10/24 10/07/24 Unknown History pantoprazole 40 mg tablet,delayed 40 mg PO DAILY 09/10/24 10/07/24 Unknown History release mometasone 0.1 % topical ointment topical 10/06/24 Unknown History ascorbic acid (vitamin C) 500 mg 500 mg PO DAILY 10/07/24 10/07/24 Unknown History tablet (Vitamin C) aspirin 81 mg tablet,delayed 81 mg PO DAILY 10/07/24 10/07/24 Unknown History release cholecalciferol (vitamin D3) 10 10 mcg PO DAILY 10/07/24 10/07/24 Unknown History mcg (400 unit) capsule (Vitamin D3) hydroxyzine HCl 25 mg tablet 25 mg PO BEDTIME PRN itch 10/07/24 10/07/24 Unknown History omega-3 fatty acids-fish oil 684 1 cap PO DAILY 10/07/24 10/07/24 Unknown History mg-1,200 mg capsule,delayed release Exam Height,Weight and Vital Signs: Height 5 ft 10 in Weight 85.729 kg Assessment and Plan Assessment Anesthesia Assessment: Chart Reviewed Final Anesthetic Review Family History of Problems with Anesthesia: No History of Problems with Anesthesia: No Documented by User: Paula Coates MD 10/25/24 11:15 PMFSH Past Medical History Medical History 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 Surgical History Surgical History History of esophagogastroduodenoscopy (EGD) History of colonoscopy (~12/08/13) Social History Social History Housing: House Patient Tobacco Use Status: Never used Tobacco e-Cigarette/Vaping Use: Former Use Anabaptism Healthcare Practices: Mormonism Advance Directives Information Provided: Yes (as above noted) Advance Directives on File: No service: No Current occupational status: retired Cognitive needs: No Hearing needs: No Vision needs: Yes (rx glasses) Meds Allergies Allergy/AdvReac Type Severity Reaction Status Date / Time empagliflozin Allergy Severe hematuria Verified 10/06/24 15:16 [From Jardiance] egg Allergy Intermediate Rash Verified 10/06/24 15:16 triamcinolone Allergy Intermediate Rash Verified 10/06/24 15:16 codeine [Codeine] Allergy Unknown UNKNOWN Verified 10/06/24 15:16 fragrance Allergy Intermediate Rash Uncoded 10/06/24 15:16 Home Medications ?Medication ?Instructions ?Recorded ?Confirmed ?Last Taken ?Type diltiazem HCl 180 mg 180 mg PO DAILY 09/10/24 10/07/24 Unknown History capsule,extended release 24 hr glipizide 10 mg tablet, extended 10 mg PO BID 09/10/24 10/07/24 Unknown History release 24 hr losartan 50 mg tablet 50 mg PO DAILY 09/10/24 10/07/24 Unknown History pantoprazole 40 mg tablet,delayed 40 mg PO DAILY 09/10/24 10/07/24 Unknown History release mometasone 0.1 % topical ointment topical 10/06/24 Unknown History ascorbic acid (vitamin C) 500 mg 500 mg PO DAILY 10/07/24 10/07/24 Unknown History tablet (Vitamin C) aspirin 81 mg tablet,delayed 81 mg PO DAILY 10/07/24 10/07/24 Unknown History release cholecalciferol (vitamin D3) 10 10 mcg PO DAILY 10/07/24 10/07/24 Unknown History mcg (400 unit) capsule (Vitamin D3) hydroxyzine HCl 25 mg tablet 25 mg PO BEDTIME PRN itch 10/07/24 10/07/24 Unknown History omega-3 fatty acids-fish oil 684 1 cap PO DAILY 10/07/24 10/07/24 Unknown History mg-1,200 mg capsule,delayed release Exam Airway Mallampati Class: II TM Dist: >3cm Neck ROM: Full Heart: rrr Lungs: cta Assessment and Plan Assessment Anesthesia Assessment: Anesthesia Plan Discussed Final Anesthetic Review NPO: Yes ASA Class: III Final Preanesthetic Review: No Changes in Pt Med Stat, Meds/Allgs Chart Reviewed, Consent Obtained/Reviewed and Anes Risks/Benef Reviewed Patient Risk: Intermediate Procedure Risk: Low Anesthetic Plan Anesthetic Plan: MAC: Disposition: Standard PACU
[2024-10-25 10:40] VITALS: BP 154/75; PULSE 68; RESP 18; TEMP 36.6; O2SAT 94
[2024-10-25] MEDS: Phenylephrine HCL 2.5% Oph SoL 2 ML BOTTLE 1 DROP EYE-LEFT ×3 (10:53→10:55)
[2024-10-25] MEDS: Lactated Ringers 500 ML 50 ML IV (10:53)
[2024-10-25] MEDS: Tropicamide 1 % Ophth Sol 3 ML BTL 1 DROP EYE-LEFT ×3 (10:53→10:55)
[2024-10-25] MEDS: Cyclopentolate 1 % Ophth Sol 2 ML DRPBTL 1 DROP EYE-LEFT ×3 (10:53→10:55)
[2024-10-25] MEDS: Tetracaine HCl/PF 0.5% Oph Sol 4 ML DROPS 1 DROP EYE-LEFT (10:53)
[2024-10-25] MEDS: Ketorolac Tromethamine 0.5% Op 5 ML DROPS 1 DROP EYE-LEFT ×3 (10:53→10:55)
[2024-10-25 10:54] LABS: Glucose, Whole Blood 158 mg/dL (60-115)
--- NOTE | 2024-10-25 11:29 | MHC.SHP ---
Pre-Procedural Eval Section A - 24 Hr Update-Section A only Date of Service: 10/25/24 The patient is an INPATIENT: No Changes since office visit: No Cold of Flu in the past 2 weeks, No New Medical Problems, No Changes in Medication and No Patient answered all questions The patient has been examined within 24 hours of the surgical procedure. The History & Physical has been completed within 30 days and I have reviewed it.: Yes Section B - Complete if H&P > 30 days Chief Complaint: Age-related nuclear cataract, left eye Allergies: Allergies Allergy/AdvReac Type Severity Reaction Status Date / Time empagliflozin Allergy Severe hematuria Verified 10/06/24 15:16 [From Jardiance] egg Allergy Intermediate Rash Verified 10/06/24 15:16 triamcinolone Allergy Intermediate Rash Verified 10/06/24 15:16 codeine [Codeine] Allergy Unknown UNKNOWN Verified 10/06/24 15:16 fragrance Allergy Intermediate Rash Uncoded 10/06/24 15:16 Plan Diagnosis/Plan: Unchanged I have reviewed the history and physical and performed a pertinent physical examination on my patient. No changes have occurred unless specified. Time Spent With Patient Time: Total time managing care of this patient today ____ minutes.
--- NOTE | 2024-10-25 11:29 | HO.PNOPHT ---
Ophthalmology Procedure Procedure Date of Service: 10/25/24 Ophthalmology Viscoelastic: Healon Duet Dual Pack Pro Ophthalmology Lenses: IOL Acrysof MP - [id number] (16) Procedure Notes: PREOPERATIVE DIAGNOSIS: Decreased visual acuity left eye secondary to cataract POSTOPERATIVE DIAGNOSIS: Same PROCEDURE: Left cataract extraction with intraocular lens insertion SURGEON: Jessee Valadez M.D. ANESTHESIA: Topical/MAC ESTIMATED BLOOD LOSS: None COMPLICATIONS: None After obtaining informed consent, the patient was brought to the operation room suite and placed in the supine position. After adequate sedation per anesthesia, topical drops of Tetracaine were given to the left eye. The eye was then prepped and draped in the usual sterile fashion. The operating room microscope was then positioned over the operative eye and a lid speculum placed. A paracentesis was created. Viscoelastic was then instilled into the anterior chamber. A three plane incision was then created temporally, utilizing a 2.85 mm keratome. Capsulotomy forceps were then utilized to create a circular tear capsulotomy. Hydrodissection and hydrodelineation were carried out until adequate mobilization of the nucleus occurred. Phacoemulsification was then utilized to remove the dense central nucleus followed by removal of the cortical material utilizing the automated aspiration irrigation unit. Viscoat elastic was instilled into the posterior capsular bag followed by placement of a posterior chamber intraocular lens without difficulty. The residual Viscoat elastic was then removed utilizing the automated IA machine. The wound was check and found to be watertight. The patient tolerated the procedure well and the lid speculum was removed. Intracameral injection of Vigamox 0.1 mL followed by a subtenon injection of Kenalog-40 0.2 mL were administered. The patient will be seen in the a.m.
[2024-10-25 12:25] VITALS: BP 133/72; PULSE 71; RESP 16; TEMP 36.2; O2SAT 98
== END 2024-10-25 12:34 | disposition home or self-care (01) ==
PROVIDERS: PCP Internal Medicine; Visit Provider Ophthalmology
PROC: (CPT 66985; principal; 2024-10-25 12:30)
DX: H25.12 Age-related nuclear cataract, left eye (principal); H54.7 Unspecified visual loss; H40.003 Preglaucoma, unspecified, bilateral; H43.399 Other vitreous opacities, unspecified eye; H35.033 Hypertensive retinopathy, bilateral; H18.419 Arcus senilis, unspecified eye; I10 Essential (primary) hypertension; E11.9 Type 2 diabetes mellitus without complications; E78.00 Pure hypercholesterolemia, unspecified; G61.81 Chronic inflammatory demyelinating polyneuritis; Z79.84 Long term (current) use of oral hypoglycemic drugs; Z79.899 Other long term (current) drug therapy; Z88.5 Allergy status to narcotic agent; Z88.8 Allergy status to other drugs, medicaments and biological substances; Z91.012 Allergy to eggs; Z87.891 Personal history of nicotine dependence
CPT/HCPCS: 66984; 82947; J2250; J3301; V2630

== ENCOUNTER 2024-12-22 12:58 | Outpatient (AMB) | payer MEDICARE, OTHER, SELFPAY ==
--- NOTE | 2024-12-22 09:21 | A.OFFPC_ITS ---
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 Required: No Accompanied by: Self / Same As Patient Allergies empagliflozin (From Jardiance) Allergy (Severe, Verified 12/22/24 09:21) hematuria egg Allergy (Intermediate, Verified 12/22/24 09:21) Rash triamcinolone Allergy (Intermediate, Verified 12/22/24 09:21) Rash codeine (Codeine) Allergy (Unknown, Verified 12/22/24 09:21) UNKNOWN fragrance Allergy (Intermediate, Uncoded 10/06/24 15:16) Rash Tobacco use date assessed: 12/22/24 Fall risk assessment: No Falls in past year Last assessed Fall Risk: 12/22/24 Dental Screening Dental Screen Date: 12/22/24 Did you have a dental visit in the last 12 months?: Yes Did you have a dental problem in the last 6 months where you did not have access to dental care?: No PFSH Medical History (Updated 12/22/24 @ 13:27 by Alvino Henry MD) 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 Social History Housing: House Patient Tobacco Use Status: Former Tobacco user e-Cigarette/Vaping Use: Former Use service: No Current occupational status: retired Cognitive needs: No Hearing needs: No Vision needs: Yes (rx glasses) Questionnaire PHQ-9 Over the last 2 weeks, how often have you been bothered by any of the following problems? 1. Little interest or pleasure in doing things: not at all 2. Feeling down, depressed, or hopeless: not at all 3. Trouble falling or staying asleep, or sleeping too much: not at all 4. Feeling tired or having little energy: not at all 5. Poor appetite or overeating: not at all 6. Feeling bad about yourself - or that you are a failure or have let yourself or your family down: not at all 7. Trouble concentrating on things, such as reading the newspaper or watching television: not at all 8. Moving or speaking so slowly that other people could have noticed. Or the opposite - being so fidgety or restless that you have been moving around a lot more than usual: not at all 9. Thoughts that you would be better off or of hurting yourself in some way: not at all Total score: 0 Source: Developed by Drs. Seng Carson, Kristen Noonan, Harlan Shields and colleagues, with an educational gage from [employer]. Thrive Questionnaire Date Thrive assessed: 12/22/24 I am a: Patient Within the past 12 months, did the food you bought not last and you didn't have the money to get more?: Never true Within the past 12 months, did you worry whether your food would run out before you got money to buy more?: Never true Do you have trouble paying for medicines?: No Do you have trouble getting transportation to medical appointments?: No Do you have trouble paying your heating and electricity bill?: No Do you have trouble taking care of your child, family member or friend?: No Do you have trouble with day-to-day activities such as bathing, preparing meals, shopping, managing finances, etc.?: No Are you currently unemployed and looking for a job?: No Are you interested in more education?: No THRIVE Score: 0 AUDIT C Alcohol Use Questionnaire (AUDIT-C) 1. How often do you have a drink containing alcohol?: Monthly or less 2. How many drinks containing alcohol do you have on a typical day when you are drinking?: 1 or 2 3. How often do you have six or more drinks on one occasion?: Less than monthly Total Score: 2 DARIUSZ-7 AMB Questionnaire DARIUSZ-7 Date DARIUSZ - 7 assessed: 12/22/24 Feeling nervous, anxious, or on edge: 0 = Not at all Not being able to stop or control worryin = Not at all Worrying too much about different things: 0 = Not at all Trouble relaxin = Not at all Being so restless that it is hard to sit still: 0 = Not at all Becoming easily annoyed or irritable: 0 = Not at all Feeling afraid as if something awful might happen: 0 = Not at all Total DARIUSZ-7 score (0-4 normal; 5-9 mild; 10-14 moderate; 15-21 severe): 0 Source: Developed by Drs. Seng Carson, Kristen Noonan, Harlan Shields and colleagues, with an educational gage from [employer]. Physical exam (Primary Care) Tobacco/Smoking Status: Tobacco use Status Tobacco use date assessed 12/22/24 12/22/24 09:22 Patient Tobacco Use Status Never used Tobacco 12/22/24 09:22 e-Cigarette/Vaping Use Never Used 12/22/24 09:22 PHQ-9: PHQ-9 Score PHQ-9: Total score 0 12/22/24 09:22 Thrive Assessment: Date of Thrive Assessment Date Thrive assessed 12/22/24 12/22/24 09:22 Coding Level of Care Code Est Pt Level 4 (53164) Complex EM visit Add On G2211 Diagnoses Diabetes E11.9 Assessment & Plan Assessment & Plan (1) Diabetes: Comment: type 2 Code(s): E11.9 - Type 2 diabetes mellitus without complications Category: Medical Plan: History of Present Illness - The patient is a 79-year-old male presenting with diabetes management and other health conditions. - Cataract surgery complications: The patient experienced issues with the left eye post-surgery due to a thick lens, resulting in a prolonged recovery period. - Diabetes mellitus: The patient is on metformin and glipizide. Concerns about hypoglycemia with glipizide were discussed, and a medication change was recommended. - Previous trial of Jardiance led to hematuria, prompting discontinuation. The patient is not interested in Trulicity due to adverse reactions experienced by his with similar medications. - Hypertension: The patient's blood pressure is well-controlled with current medication. - Hip stiffness: The patient reports stiffness in the hips, likely due to lack of exercise, and plans to use a treadmill despite occasional knee discomfort. 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 - Exercise: Reports reduced physical activity since fpc and COVID-19, plans to use a treadmill for exercise. Review of Systems - Ophthalmologic: Reports issues with left eye post-cataract surgery. - Endocrine: Reports stable blood sugar levels with current medication regimen. - Musculoskeletal: Reports hip stiffness, possibly due to lack of exercise. Physical Exam General: Cooperative and healthy appearing Nutritional Appearance: Well nourished Orientation/consciousness: Patient oriented x3 Limitations: No limitations Head: Normal to inspection General: Appearance normal, both eyes and all related structures Neck: Normal visual inspection Chest: Normal palpation of entire chest wall Respiratory: Normal respiratory effort Neurology: Patient oriented x3 Results Plan 1. Diabetes Mellitus - Consider changing from glipizide to another medication due to hypoglycemia risk. - Jardiance was discontinued due to hematuria. - Patient declined Trulicity due to spouse's adverse reactions. 2. Hypertension - Blood pressure remains well-controlled with current medication. 3. Cataract Surgery Complications - Prolonged recovery noted due to thick lens in left eye. 4. Hip Stiffness - Plans to use treadmill for exercise despite knee discomfort. Discussion Notes I discussed with the patient the risks associated with continuing glipizide, pa rticularly the potential for hypoglycemia, and recommended considering an alternative medication. We reviewed the previous trial of Jardiance, which was discontinued due to hematuria, and the patient expressed disinterest in Trulicity due to adverse reactions experienced by his . We agreed to monitor his blood sugar levels closely and maintain his current hypertension management as his blood pressure remains stable. I advised the patient to incorporate more physical activity to address hip stiffness and suggested using a treadmill at a comfortable pace. Patient Instructions - Monitor blood sugar levels regularly and report any significant changes. - Continue current hypertension medication as prescribed. - Use treadmill for exercise at a comfortable pace to help with hip stiffness.
[2024-12-22 13:04] VITALS: BP 130/80; PULSE 71; TEMP 36.5; O2SAT 96; BMI 26.7
--- OUTSIDE RECORDS SUMMARY | 2024-12-22 13:50 | XMS_ITS | Patient Health Record ---
Author Organization [facility] Address [address] [place] [address] Care Team Providers Care Manager Meeting Name Role Phone JOHN FRANCIS Primary Care Provider Ruslan Ledesma Jr Unavailable Allergies Allergen (clinical drug ingredient) Drug/Non Drug Allergy documented on EMR Reaction Allergy Type Onset Date Status Fragrance Unknown Allergy Active empagliflozin Jardiance Unknown Drug Allergy Act mikayla codeine Codeine Sulfate Unknown Drug Allergy A ctive eggs (uncoded) Unknown Allergy Activ e triamcinolone Triamcinolone Unknown Drug Allergy Active Reason For Referral No Information Medications Medication SIG (Take, Route, Frequency, Duration) Notes Start Date End Date Status Lactaid Not-Taking Fish Oil 1200mg Acti ve Apple Cider Vinegar Active Biotin Active dilTIAZem HCl ER Coated Beads 180 MG TAKE 1 CAPSULE BY MOUTH EVERY DAY Oral for 90 Active Losartan Potassium 50 MG Oral for 90 Active Probiotic Active Pantoprazole Sodium 40 MG TAKE 1 TABLET BY MOUTH DAILY Oral for 90 Active Vitamin C 1000mg Act mikayla Flaxseed Oil 1000mg Active glipiZIDE ER 10 MG Oral for 90 Active Vitamin D3 1000iu Ac tive Social [...] Problem Status W/U Status Risk Notes Problem 329887483 Colon cancer screening (Z12.11) Active confirmed Problem 553907059 Gastroesophageal reflux disease with esophagitis without hemorrhage (K21.00) Active confirmed Problem 878983143 Primary pancreat ic neuroendocrine tumor (D3A.8) Active confirmed Vital Signs Blood pressure diastolic 11 mm Hg 09/23/2024 Height 69 in 09/23/2024 Blood pressure systolic 111 mm Hg 09/23/2024 Weight 187 lbs 09/23/2024 BMI 27.61 kg/m2 09/23/2024 Encounters Encounter Location Date Provider Diagnosis [facility] [address] [place] [address] 09/23/2024 Ruslan Tirado Jr Gastroesophageal reflux disease with esophagitis without hemorrhage K21.00 ; Primary pancreatic neuroendocrine tumor D3A.8 and Colon cancer screening Z12.11 Assessments Encounter Date Diagnosis (ICD Code) Assessment Notes Treatment Notes Treatment Clinical Notes Section Notes 09/23/2024 Gastroesophageal reflux disease with esophagitis without hemorrhage (ICD-10 - K21.00) Currently, he is doing well. We discussed gastroesophageal reflux disease today. We discussed diet, lifestyle modifications, and weight management. We recommended he continue pantoprazole. We discussed treatment of breakthrough symptoms and use of tocq-bqp-kyquygk antacids including liquid antacids. He will continue these measures. Pancreatic neuroendocrine tumor has remained stable, and follow-up will be continued with his oncologist in [place]. He is up-to-date on colorectal cancer screening, given that it is optional at his age. We discussed repeat endoscopy today and colonoscopy, which he continues to decline. He will call us if he has any problems. Follow-up in 1 year. Today's visit was 30 minutes. 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 We discussed gastroesophageal reflux disease today. We discussed diet, lifestyle modifications, and weight management. We recommended he continue pantoprazole. We discussed treatment of breakthrough symptoms and use of cyxv-pox-kjwyfux antacids including liquid antacids. He will continue these measures. Pancreatic neuroendocrine tumor has remained stable, and follow-up will be continued with his oncologist in [place]. He is up-to-date on colorectal cancer screening, given that it is optional at his age. We discussed repeat endoscopy today and colonoscopy, which he continues to decline. He will call us if he has any problems. Follow-up in 1 year. Today's visit was 30 minutes. 09/23/2024 Colon cancer screening (ICD-10 - Z12.11) Currently, he is doing well. We discussed gastroesophageal reflux disease today. We discussed diet, lifestyle modifications, and weight management. We recommended he continue pantoprazole. We discussed treatment of breakthrough symptoms and use of jczy-mwv-cxklfkl antacids including liquid antacids. He will continue these measures. Pancreatic neuroendocrine tumor has remained stable, and follow-up will be continued with his oncologist in [place]. He is up-to-date on colorectal cancer screening, given that it is optional at his age. We discussed repeat endoscopy today and colonoscopy, which he continues to decline. He will call us if he has any problems. Follow-up in 1 year. Today's visit was 30 minutes. Plan Of Treatment Future Test Test Name Order Date COLONOSCOPY 09/17/2013 Next Appt Details Provider Name:Ruslan ellsworth , 09/22/2025 01:15:00 PM, [address] [place] [address], [address], [place], [address], Insurance Providers Payer Name Payer Address Payer Phone Subscriber Number Group Number Insured Name Patient Relationship to Insured Coverage Start Date Coverage End Date MEDICARE OF [place] [address] [place] [address] [id number] NICKOCRASON Self - patient is the insured [employer] ([place]) [address] [place] [address] [id number] NICKOCARSON Self - patient is the insured Medical [...] dise ase, erosive esophagitis at time of endoscopy/EUS 04/30 hay fever Surgical History Surgery Date(Month/Year) nasal polypectomy hernia repair
== END 2024-12-22 13:23 | disposition home or self-care (01) ==
LOC: HO.HMCHD 12:59
PROVIDERS: PCP Internal Medicine; Visit Provider Internal Medicine
DX: E11.9 Type 2 diabetes mellitus without complications (principal)

== ENCOUNTER → 2024-12-22 12:58 | Outpatient (BNVA) | payer MEDICARE, OTHER, SELFPAY | PROVIDERS: PCP Internal Medicine; Visit Provider Internal Medicine | DX: E11.9 Type 2 diabetes mellitus without complications (principal) | CPT/HCPCS: 99212 ==

== ENCOUNTER 2025-04-17 14:58 | Inpatient (IN) | payer MEDICARE, OTHER, SELFPAY ==
[2025-04-17] VITALS (21 sets, daily range): BP systolic 92–130; BP diastolic 44–68; PULSE 66–108; RESP 14–20; TEMP 36.8–37.9; O2SAT 89–95; BMI 26.2
--- NOTE | ~2025-04-17 | XR_ITS ---
CLINICAL HISTORY: fever, cough 1 view chest x-ray. Comparison: None Findings: No consolidation or effusion. Cardiac and mediastinal contours appear unremarkable. Bones unremarkable. Impression: 1. No acute pulmonary disease. This document has been electronically signed by: Nadeem Blas MD on 04/17/2025 18:07:50
[2025-04-17 15:56] LABS: VBG HCO3 21 mmol/L (22-26); VBG O2 % Saturation 93.0 %
[2025-04-17 15:56] LABS: Venous Blood Gas Refer to POC result
[2025-04-17 16:15] LABS: Hematocrit 41.2 % (42.0-52.0); Hemoglobin 14.1 g/dl (14.0-18.0); Mean Corpuscular HGB Conc 34.2 g/dl (31.0-36.0); Mean Corpuscular Hemoglobin 29.7 pg (27.0-33.0); Mean Corpuscular Volume 86.7 fL (80.0-98.0); NRBC Abs Auto 0.000 X10*3/uL (0.0-0.012); NRBC Pct Auto 0.0 /100WBC (0.0-0.2); Platelet Count 283 X10*3/uL (160-400); Red Blood Count 4.75 X10*6/uL (4.60-5.80); White Blood Count 19.6 X10*3/uL (4.8-10.8)
[2025-04-17 16:21] LABS: Alanine Aminotransferase 208 U/L (0-40); Albumin Level 3.7 g/dL (3.5-5.0); Alkaline Phosphatase 248 U/L (39-117); Anion Gap 15 (12-20); Aspartate Amino Transferase 189 U/L (5-37); Blood Urea Nitrogen 12 mg/dL (9-16); Calcium 9.4 mg/dL (8.4-10.2); Carbon Dioxide 21 mmol/L (22-29); Chloride 103 mmol/L (96-108); Creatinine Clr Calc Pharmacy 69.8; Estimated Glomerular Filt Rate > 60; Magnesium 1.4 mg/dL (1.6-2.6); Potassium 3.9 mmol/L (3.3-5.1); Sodium 135 mmol/L (135-145); Total Protein 6.5 g/dL (6.5-8.0)
--- NOTE | 2025-04-17 16:33 | PC.NURSE ---
Dr. Deras at bedside speaking with patient at this time.
--- OUTSIDE RECORDS SUMMARY | 2025-04-17 16:40 | XMS_ITS | Patient Health Record ---
Author Organization [facility] Address [address] [place] [id number] Care Team Providers Care Cop Examiner Name Role Phone JOHN FRANCIS Primary Care Provider Ruslan Ledesma Jr Unavailable Allergies Allergen (clinical drug ingredient) Drug/Non Drug Allergy documented on EMR Reaction Allergy Type Onset Date Status triamcinolone Triamcinolone Unknown Drug Allergy Active Fragrance Unknown Allergy Active empagliflozin Jardiance Unknown Drug Allergy Act mikayla codeine Codeine Sulfate Unknown Drug Allergy A ctive eggs (uncoded) Unknown Allergy Activ e Reason For Referral No Information Medications Medication SIG (Take, Route, Frequency, Duration) Notes Start Date End Date Status Lactaid Not-Taking Fish Oil 1200mg Acti ve Apple Cider Vinegar Active Biotin Active dilTIAZem HCl ER Coated Beads 180 MG TAKE 1 CAPSULE BY MOUTH EVERY DAY Oral; Duration: 90 Active Losartan Potassium 50 MG Oral; Duration: 90 Active Probiotic Active Pantoprazole Sodium 40 MG TAKE 1 TABLET BY MOUTH DAILY Oral; Duration: 90 Active Vitamin C 1000mg Act mikayla Flaxseed Oil 1000mg Active glipiZIDE ER 10 MG Oral; Duration: 90 Active Vitamin D3 1000iu Ac tive [...] Problem Status W/U Status Risk Notes Problem Colon cancer screening (414444985) Colon cancer screening (Z12.11) Active confirmed Problem Gastroesophageal reflux disease with esophagitis (disorder) (118996114) Gastroesophageal reflux disease with esophagitis without hemorrhage (K21.00) Active confirmed Problem 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 [place] [address] 09/23/2024 Ruslan Tirado Jr Gastroesophageal reflux disease [...] treatment of breakthrough symptoms and use of hjyu-vrb-pidezmh antacids including liquid antacids. He will continue these measures. Pancreatic neuroendocrine tumor has remained stable, and follow-up will be continued with his oncologist in [place]. He is up-to-date on colorectal cancer screening, [...] treatment of breakthrough symptoms and use of mjyv-fyw-vlefdtz antacids including liquid antacids. He will continue these measures. Pancreatic neuroendocrine tumor has remained stable, and follow-up will be continued with his oncologist in [place]. He is up-to-date on colorectal cancer screening, [...] treatment of breakthrough symptoms and use of jbxe-gan-hcfnlpk antacids including liquid antacids. He will continue these measures. Pancreatic neuroendocrine tumor has remained stable, and follow-up will be continued with his oncologist in [place]. He is up-to-date on colorectal cancer screening, given that it is optional at his age. We discussed repeat endoscopy today and colonoscopy, which he continues to decline. He will call us if he has any problems. Follow-up in 1 year. Today's visit was 30 minutes. Plan Of Treatment Future Test Test Name Order Date COLONOSCOPY 09/17/2013 Next Appt Details Provider Name:Ruslandesmond ellsworth , 09/22/2025 01:15:00 PM, [address] [place] [address], [address], [place], [address], Insurance Providers Payer Name Payer Address Payer Phone Subscriber Number Group Number Insured Name Patient Relationship to Insured Coverage Start Date Coverage End Date MEDICARE OF [place] [address] [facility] [place] [id number] NICKOCARSON WOOD Self - patient is the insured [employer] ([place]) [address] [place] [address] [phone] [id number] NICKOCARSON WOOD Self - patient is the [...]
--- NOTE | 2025-04-17 16:41 | ED.GENADULT ---
HPI - General Adult General Chief complaint: General Medical Stated complaint: VOMITING WEAKNESS + COVID Time Seen by Provider: 04/17/25 16:29 Source: patient and EMS Mode of arrival: EMS Limitations: no limitations History of Present Illness ED Provider: DR. Deras HPI narrative: 79-year-old male relatively healthy came in by EMS from home for evaluation of fever and generalized weakness, patient lives home with his independently his has been sick and tested positive for COVID, patient have a minimal shortness of breath, subjective fever, found to be hypoxic by EMS 88% on room air no known history of lung disease, +remote history of smoking. Patient was placed on 3 L of oxygen with improvement of O2 sat to 93%. Related Data Home Medications ?Medication ?Instructions ?Recorded ?Confirmed glipizide 10 mg tablet, extended 10 mg PO BID 09/10/24 10/07/24 release 24 hr losartan 50 mg tablet 50 mg PO DAILY 09/10/24 10/07/24 pantoprazole 40 mg tablet,delayed 40 mg PO DAILY 09/10/24 10/07/24 release ascorbic acid (vitamin C) 500 mg 500 mg PO DAILY 10/07/24 10/07/24 tablet (Vitamin C) cholecalciferol (vitamin D3) 10 10 mcg PO DAILY 10/07/24 10/07/24 mcg (400 unit) capsule (Vitamin D3) omega-3 fatty acids-fish oil 684 1 cap PO DAILY 10/07/24 10/07/24 mg-1,200 mg capsule,delayed release Previous Rx's ?Medication ?Instructions ?Recorded metformin 500 mg tablet 1,000 mg (2 x 500 mg) PO DAILY 90 04/02/25 days #180 tabs diltiazem HCl 180 mg 180 mg PO DAILY #90 caps 04/08/25 capsule,extended release 24 hr Allergies Allergy/AdvReac Type Severity Reaction Status Date / Time empagliflozin (From Allergy Severe hematuria Verified 04/17/25 15:29 Jardiance) egg Allergy Intermediate Rash Verified 04/17/25 15:29 triamcinolone Allergy Intermediate Rash Verified 04/17/25 15:29 codeine (Codeine) Allergy Unknown UNKNOWN Verified 04/17/25 15:29 fragrance Allergy Intermediate Rash Uncoded 04/17/25 15:29 Review of Systems Review of Systems: All other systems are reviewed and are negative Constitutional: Reports as per HPI and Reports no additional constitutional complaints Eyes: Reports as per HPI and Reports no additional eye complaints Reports system reviewed and no additional complaints, except as documented Cardiovascular: Reports as per HPI and Reports no additional cardiovascular complaints Respiratory: Reports as per HPI and Reports no additional respiratory complaints Gastrointestinal: Reports as per HPI and Reports no additional gastrointestinal complaints Genitourinary: Reports no additional female genitourinary complaints Musculoskeletal: Reports no additional musculoskeletal complaints Skin/Breast: Reports system reviewed and no additional complaints, except as docu Psychiatric: Reports no additional psychiatric complaints Endocrine: Reports no additional endocrine complaints Hematologic/Lymphatic: Reports no additional hematologic/lymphatic complaints Allergic/Immunologic: Reports no additional allergic/immunologic complaints Reports system reviewed and no additional complaints, except as documented and Reports Abnormal speech present [facility] Past Medical History Medical History 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 Social History Social History Housing: House Patient Tobacco Use Status: Former Tobacco user e-Cigarette/Vaping Use: Former Use Advance Directives: No Advance Directives Information Provided: Yes service: No Current occupational status: retired Cognitive needs: No Hearing needs: No Vision needs: Yes (rx glasses) Physical Exam ED Vital Signs: Vital Signs - 24 hr 04/17/25 15:10 04/17/25 15:31 04/17/25 16:01 Temperature 100.2 F Pulse Rate 85 92 90 Respiratory Rate 20 19 19 Blood Pressure 130/55 L 126/53 L 111/50 L Pulse Oximetry 93 92 91 L Oxygen Delivery Method Nasal Cannula Nasal Cannula Nasal Cannula Oxygen Flow Rate 2 2 04/17/25 16:26 04/17/25 16:36 04/17/25 16:51 Temperature Pulse Rate 89 88 87 Respiratory Rate 16 20 19 Blood Pressure 97/52 L 103/54 L 105/52 L Pulse Oximetry 92 91 L 91 L Oxygen Delivery Method Nasal Cannula Nasal Cannula Nasal Cannula Oxygen Flow Rate 2 2 2 04/17/25 17:06 04/17/25 17:32 04/17/25 17:56 Temperature 99.7 F Pulse Rate 87 87 76 Respiratory Rate 18 18 16 Blood Pressure 103/49 L 92/60 103/44 L Pulse Oximetry 90 L 91 L 91 L Oxygen Delivery Method Nasal Cannula Room Air Nasal Cannula Oxygen Flow Rate 2 2 04/17/25 18:16 04/17/25 18:17 04/17/25 18:21 Temperature Pulse Rate 69 Respiratory Rate 18 Blood Pressure 103/46 L 103/46 L 95/48 L Pulse Oximetry Oxygen Delivery Method Oxygen Flow Rate 04/17/25 18:24 04/17/25 18:25 04/17/25 18:26 Temperature Pulse Rate 72 72 Respiratory Rate 18 16 Blood Pressure 95/49 L 96/48 L 96/48 L Pulse Oximetry 93 95 Oxygen Delivery Method Nasal Cannula Nasal Cannula Oxygen Flow Rate 3 3 04/17/25 18:31 04/17/25 18:31 Temperature 98.7 F 98.7 F Pulse Rate 73 Respiratory Rate 16 Blood Pressure 102/48 L Pulse Oximetry 94 Oxygen Delivery Method Nasal Cannula Oxygen Flow Rate 2 BMI result Body Mass Index 26.2 Vital signs have been reviewed and appear to be correct. Blood pressure elevated. Heart rate normal. Respiratory rate normal. Temperature normal. Oxygen saturation normal. Appearance: Alert. Oriented X3. No acute distress. Head: Normal external exam. Normocephalic. Atraumatic. No Ashraf signs noted. No raccoon eyes noted Eyes: PERRLA. EOMI. Conjunctiva and sclera normal. Eyelids normal. ENT: TM's Normal. Pharynx normal. Uvula midline. Moist mucous membranes. No trismus noted. No drooling noted. No muffled voice noted. Neck: Normal inspection. Neck supple. FROM. No adenopathy. Thyroid Normal. No meningeal signs. No neck mass noted. CVS: Normal heart rate and rhythm. Heart sound normal. No murmurs noted. Pulses normal throughout. Respiratory: No respiratory distress. Painless inspiration. Breath sounds normal. No wheezes/rales/rhonchi noted. Chest nontender. No accessory muscle usage noted or decreased air movement noted. Abdomen: Soft and nontender. Bowel sounds normal in all 4 quadrants. No distention noted. No organomegaly noted. No visible injury noted. Back: No CVA tenderness. Full range of motion noted. Skin: Skin warm and dry. Normal skin color. Normal skin turgor. No rashes/lesions/lacerations noted. Extremities: No lower extremity edema. Extremities exhibit normal range of motion. Extremities nontender. Neuro: Oriented X 3. Cranial nerve exam: II-XII are grossly intact No motor deficit. No sensory deficit. Reflexes normal. Course Reevaluation(s) Reevaluation #1: 79-year-old male with COVID pneumonia and hypoxia responding well to oxygen 3 L nasal cannula, will administer 6 mg IV of dexamethasone, supportive care of IV fluids, serial lactic acid, hypomagnesemia will replete magnesium, will admit for respiratory support. SIRS criteria was met secondary to viral infection. Patient received 1 dose of empirical antibiotic for concern of bacterial superimposed but chest x-ray is negative, will discontinue antibiotic. Time: 18:32 Reevaluation #2: 2, FOCUSED EXAM: Preformed, patient received 30 cc/kg total off ,2,517 cc of fluids, lactic acid went from 4-2.4, blood pressure has been stable, patient overall feels better. Time: 19:19 Medications Administered Discontinued Medications Generic Name Dose Route Start Last Admin Trade Name Freq PRN Reason Stop Dose Admin Dexamethasone Sodium Phosphate 6 mg 04/17/25 16:35 04/17/25 17:20 Dexamethasone Sod Phosphate 4 Mg/Ml Vial IVPUSH 04/17/25 16:36 6 mg ONCE ONE Administration Acetaminophen 1,000 mg in 100 mls @ 400 mls/hr 04/17/25 16:35 04/17/25 18:15 Ofirmev IV 04/17/25 16:49 Infused ONCE ONE Infusion Magnesium Sulfate 2 gm in 50 mls @ 150 mls/hr 04/17/25 16:35 04/17/25 18:13 Magnesium Sulfate/H2o IV 04/17/25 16:54 Infused ONCE ONE Infusion Sodium Chloride 1,000 mls @ 999 mls/hr 04/17/25 17:32 04/17/25 18:35 Ns IV 04/17/25 18:32 Infused .Q1H1M ONE Infusion Piperacillin Sod/Tazobactam 50 mls @ 100 mls/hr 04/17/25 17:43 04/17/25 18:46 Sod 3.375 gm/ Sodium Chloride IV 04/17/25 18:12 Infused ONCE ONE Infusion Sodium Chloride 2,517 mls @ 2,517 mls/hr 04/17/25 17:43 04/17/25 19:08 Ns 30 ml/kg infuse over 1 hr (2517 ml) 04/17/25 18:42 Infused IV Infusion .Q1H STA Medical Decision Making Differential Diagnosis Differential Diagnoses: The differential diagnosis associated with the presentation includes (Pneumonia, pneumothorax, pleural effusion, viral pneumonia, electrolyte derangement, dehydration, severe anemia.) Admission/Observation Consideration of admission/observation: Escalation of care including admission/observation considered Consult Healthcare Provider Management of the patient was discussed with: Hospitalist gaurav) Lab Data MDM Lab Attestation statement: I reviewed the patient's lab results. 04/17/25 15:41 04/17/25 15:41 Labs: Lab Results 04/17/25 04/17/25 04/17/25 Range/Units 15:41 15:42 15:51 WBC 19.6 H (4.8-10.8) X10*3/uL RBC 4.75 (4.60-5.80) X10*6/uL Hgb 14.1 (14.0-18.0) g/dl Hct 41.2 L (42.0-52.0) % MCV 86.7 (80.0-98.0) fL MCH 29.7 (27.0-33.0) pg MCHC 34.2 (31.0-36.0) g/dl RDW 13.7 (11.0-16.0) % Plt Count 283 (160-400) X10*3/uL MPV 10.8 (9.4-12.4) fL Immature Gran % (Auto) Cancelled Neut % (Auto) Cancelled Lymph % (Auto) Cancelled Major % (Auto) Cancelled Eos % (Auto) Cancelled Baso % (Auto) Cancelled Lymph # (Auto) Cancelled Major # (Auto) Cancelled Eos # (Auto) Cancelled Baso # (Auto) Cancelled Abs Immat Gran (auto) Cancelled Absolute Neuts (auto) Cancelled Absolute Nucleated RBC 0.000 (0.0-0.012) X10*3/uL Nucleated RBC % (auto) 0.0 (0.0-0.2) /100WBC Neutrophils % (Manual) 81 H (45-73) % Band Neutrophils % 15 H (3-5) % Lymphocytes % (Manual) 3 L (20-40) % Monocytes % (Manual) 1 L (2-11) % Abs Neuts (Manual) 18.8 H (2.0-8.3) X10*3/uL Lymphocytes # (Manual) 0.6 L (1.2-4.9) X10*3/uL Monocytes # (Manual) 0.2 (0.1-1.2) X10*3/uL Platelet Estimate NORMAL (NORMAL) Plt Morphology Comment NORMAL RBC Morphology NORMAL Smear Tech's Comments MANUAL DIFF VBG pH 7.39 (7.32-7.43) VBG pCO2 35 mmHg VBG pO2 64 mmHg VBG HCO3 21 L (22-26) mmol/L VBG O2 Saturation 93.0 % VBG Base Excess -2.6 mmol/L Sodium 135 (135-145) mmol/L Potassium 3.9 (3.3-5.1) mmol/L Chloride 103 (96-108) mmol/L Carbon Dioxide 21 L (22-29) mmol/L Anion Gap 15 (12-20) BUN 12 (9-16) mg/dL Creatinine 0.90 (0.5-1.4) mg/dL Estim Creat Clear Calc 69.8 Estimated GFR > 60 Random Glucose 275 H (60-115) mg/dL Lactic Acid 4.0 H* (0.5-2.0) mmol/L Lactic Acid F/U @ 2Hr (0.5-2.0) mmol/L Calcium 9.4 (8.4-10.2) mg/dL Magnesium 1.4 L* (1.6-2.6) mg/dL Total Bilirubin 3.6 H (0.0-1.0) mg/dL AST 189 H (5-37) U/L ALT 208 H (0-40) U/L Alkaline Phosphatase 248 H (39-117) U/L Total Protein 6.5 (6.5-8.0) g/dL Albumin 3.7 (3.5-5.0) g/dL Influenza Type A (PCR) NEGATIVE (Negative) Influenza Type B (PCR) NEGATIVE (Negative) RSV RNA Qual (PCR) NEGATIVE (Negative) SARS-CoV-2 RNA (RT-PCR) POSITIVE A (Negative) 04/17/25 Range/Units 18:28 WBC (4.8-10.8) X10*3/uL RBC (4.60-5.80) X10*6/uL Hgb (14.0-18.0) g/dl Hct (42.0-52.0) % MCV (80.0-98.0) fL MCH (27.0-33.0) pg MCHC (31.0-36.0) g/dl RDW (11.0-16.0) % Plt Count (160-400) X10*3/uL MPV (9.4-12.4) fL Immature Gran % (Auto) Neut % (Auto) Lymph % (Auto) Major % (Auto) Eos % (Auto) Baso % (Auto) Lymph # (Auto) Major # (Auto) Eos # (Auto) Baso # (Auto) Abs Immat Gran (auto) Absolute Neuts (auto) Absolute Nucleated RBC (0.0-0.012) X10*3/uL Nucleated RBC % (auto) (0.0-0.2) /100WBC Neutrophils % (Manual) (45-73) % Band Neutrophils % (3-5) % Lymphocytes % (Manual) (20-40) % Monocytes % (Manual) (2-11) % Abs Neuts (Manual) (2.0-8.3) X10*3/uL Lymphocytes # (Manual) (1.2-4.9) X10*3/uL Monocytes # (Manual) (0.1-1.2) X10*3/uL Platelet Estimate (NORMAL) Plt Morphology Comment RBC Morphology Smear Tech's Comments VBG pH (7.32-7.43) VBG pCO2 mmHg VBG pO2 mmHg VBG HCO3 (22-26) mmol/L VBG O2 Saturation % VBG Base Excess mmol/L Sodium (135-145) mmol/L Potassium (3.3-5.1) mmol/L Chloride (96-108) mmol/L Carbon Dioxide (22-29) mmol/L Anion Gap (12-20) BUN (9-16) mg/dL Creatinine (0.5-1.4) mg/dL Estim Creat Clear Calc Estimated GFR Random Glucose (60-115) mg/dL Lactic Acid (0.5-2.0) mmol/L Lactic Acid F/U @ 2Hr 2.4 H* (0.5-2.0) mmol/L Calcium (8.4-10.2) mg/dL Magnesium (1.6-2.6) mg/dL Total Bilirubin (0.0-1.0) mg/dL AST (5-37) U/L ALT (0-40) U/L Alkaline Phosphatase (39-117) U/L Total Protein (6.5-8.0) g/dL Albumin (3.5-5.0) g/dL Influenza Type A (PCR) (Negative) Influenza Type B (PCR) (Negative) RSV RNA Qual (PCR) (Negative) SARS-CoV-2 RNA (RT-PCR) (Negative) Independent Interpretation I performed an independent interpretation of an: Plain X-Ray (No acute pathology.) Radiology Impression Discussion of test interpretation with radiology: I have reviewed the radiologist's reading. Critical Care Time Critical Care Time Critical Care Time: Yes Total Critical Care Time: 60 Attestation: The patient was critically ill with a high probability of imminent or life-threatening deterioration. I spent greater than 30 minutes of discontinuous time evaluating the patient, delivering critical care at the bedside, discussing evaluating data with consultants. Critical care time does not include time spent performing separately billable procedures or teaching. Time spent performing critical care was 60 minutes. Discharge Plan Discharge Clinical Impression: COVID-19 virus infection, Acidosis, lactic, Hypoxia Patient Disposition: Admitted As Inpatient
[2025-04-17 17:02] LABS: Neutrophils Percent Manual 81 % (45-73)
[2025-04-17 17:05] LABS: Band Neutrophils Percent 15 % (3-5); Lymphocytes Absolute Manual 0.6 X10*3/uL (1.2-4.9); Lymphocytes Percent Manual 3 % (20-40); Monocytes Absolute Manual 0.2 X10*3/uL (0.1-1.2); Monocytes Percent Manual 1 % (2-11); Neutrophils Absolute Manual 18.8 X10*3/uL (2.0-8.3); RBC Morphology NORMAL
[2025-04-17 17:20] LABS: Resp Syncy Virus RNA Qual PCR NEGATIVE (Negative); SARS COV2 PCR INHOUSE POSITIVE (Negative)
[2025-04-17] MEDS: Magnesium Sulfate/H2O 2 GM/50 ML PIGGYBACK IV (17:20)
--- NOTE | 2025-04-17 17:30 | PC.NURSE ---
Xray at bedside. Medications administered as ordered.
[2025-04-17 17:48] LABS: Reflex Lactate? Lactic Acid Added
[2025-04-17] MEDS: SODIUM CHLORIDE 2517 ML IV (18:16)
[2025-04-17 18:57] LABS: ~Lactic Acid-LAB USE ONLY 2.4 mmol/L (0.5-2.0)
--- NOTE | 2025-04-17 18:57 | P.HPHOSP_ITS ---
History of Present Illness Date of Service: 04/17/25 Chief Complaint: shortness of breath A 79-year-old male with a history of diabetes, hypertension, and GERD presented to the emergency department with a 3-day history of shortness of breath, chills, fever up to 103, diaphoretic and dry cough. His recently tested positive for COVID-19, and he also tested positive. He was hypoxic (O2 sat 89%), borderline hypotensive, and had a lactic acid >4 mmol/L and WBC 19 x10?/L. Chest X-ray showed no acute findings. Serum magnesium was low at 1.4 mg/dL and was repleted. Emergency Department Management: * IV fluids * Zosyn (piperacillin-tazobactam) * Dexamethasone * Magnesium repletion Following initial management, his blood pressure improved and he reported symptomatic improvement. 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 Surgical History History of esophagogastroduodenoscopy (EGD) History of colonoscopy (~12/08/13) Social History Housing: House Patient Tobacco Use Status: Former Tobacco user Smoked in Last 30 Days: No e-Cigarette/Vaping Use: Former Use Use of substances other than those prescribed or required for medical reasons: No Advance Directives: No Advance Directives Information Provided: Yes Nutrition Risks: No Nutritional Risk service: No Current occupational status: retired Cognitive needs: No Hearing needs: No Vision needs: Yes (rx glasses) Meds Allergies Allergy/AdvReac Type Severity Reaction Status Date / Time empagliflozin (From Allergy Severe hematuria Verified 04/17/25 15:29 Jardiance) egg Allergy Intermediate Rash Verified 04/17/25 15:29 triamcinolone Allergy Intermediate Rash Verified 04/17/25 15:29 codeine (Codeine) Allergy Unknown UNKNOWN Verified 04/17/25 15:29 fragrance Allergy Intermediate Rash Uncoded 04/17/25 15:29 Active Medications: Current Medications Acetaminophen (Acetaminophen 325 Mg Tablet) 650 mg PO Q6H PRN PRN Reason: Pain, Mild 1-3,fever,headache Al Hydroxide/Mg Hydroxide (Magnesium Hydrox/Alum Hydrox 30 Ml Oral.Susp) 30 ml PO Q4H PRN PRN Reason: Heartburn Calcium Carbonate (Calcium Carbonate 750 Mg Tab.Chew) 750 mg PO Q4H PRN PRN Reason: Heartburn Dextrose (Dextrose 50 % 25 Gm/50 Ml Syringe) 25 gm IVPUSH Q15M PRN; Protocol PRN Reason: per Hypoglycemia Standing Ord. Glucose (Glucose Gel 15 Gm Gel..Gram.) 15 gm PO Q15M PRN; Protocol PRN Reason: per Hypoglycemia Standing Ord. Lactated Ringer's (Lr) 1,000 mls @ 125 mls/hr IVCONT .Q8H [facility] Insulin Human Lispro (Insulin Lispro 100 Unit/Ml 3 Ml Vial) 0 unit SUBCUT QIDACHS [facility]; Protocol Magnesium Hydroxide (Milk Of Magnesia 30 Ml Oral.Susp) 30 ml PO DAILY PRN PRN Reason: Constipation Melatonin (Melatonin 3 Mg Tablet) 6 mg PO BEDTIME PRN PRN Reason: Insomnia Sodium Chloride (0.9 % Sodium Chloride Flush 3 Ml Syringe) 3 ml IVFLUSH QSHIFT [facility] Home Medications ?Medication ?Instructions ?Recorded ?Confirmed ?Last Taken ?Type glipizide 10 mg tablet, extended 10 mg PO BID 09/10/24 04/18/25 04/17/25 History release 24 hr losartan 50 mg tablet 50 mg PO DAILY 09/10/2404/0904/17/25 History pantoprazole 40 mg tablet,delayed 40 mg PO DAILY 09/1004/18/25 04/17/25 History release ascorbic acid (vitamin C) 500 mg 500 mg PO DAILY 10/0704/18/25 04/17/25 History tablet (Vitamin C) cholecalciferol (vitamin D3) 10 10 mcg PO DAILY 04/18/25 04/17/25 History mcg (400 unit) capsule (Vitamin D3) omega-3 fatty acids-fish oil 684 1 cap PO DAILY 04/18/25 04/17/25 History mg-1,200 mg capsule,delayed release Lactobacillus rhamnosus GG 10 1 cap PO DAILY 04/18/25 04/18/25 04/17/25 History billion cell capsule (Culturelle) lactase 3,000 unit tablet (Lactaid) 3,000 unit PO TID 04/18/25 04/18/25 04/17/25 History metformin 500 mg tablet 500 mg PO BID 04/18/2504/1804/17/25 History Physical Exam 2 Vital Signs and Narrative: Vital Signs: Last Vital Signs Temp 98.7 F 04/17/25 18:31 Pulse 73 04/17/25 18:31 Resp 16 04/17/25 18:31 BP 102/48 L 04/17/25 18:31 Pulse Ox 94 04/17/25 18:31 O2 Del Method Nasal Cannula 04/17/25 18:31 O2 Flow Rate 2 04/17/25 18:31 Oxygen Flow Rate 2 04/17/25 15:10 BMI result Body Mass Index 26.2 Results Labs 04/18/25 09:18 04/18/25 09:18 Labs: Laboratory Results - last 24 hr 04/17/25 04/17/25 04/17/25 15:41 15:42 15:51 MCV 86.7 MCH 29.7 MCHC 34.2 RDW 13.7 Plt Count 283 MPV 10.8 Immature Gran % (Auto) Cancelled Neut % (Auto) Cancelled Lymph % (Auto) Cancelled [place] % (Auto) Cancelled Eos % (Auto) Cancelled Baso % (Auto) Cancelled Lymph # (Auto) Cancelled [place] # (Auto) Cancelled Eos # (Auto) Cancelled Baso # (Auto) Cancelled Abs Immat Gran (auto) Cancelled Absolute Neuts (auto) Cancelled Absolute Nucleated RBC 0.000 Nucleated RBC % (auto) 0.0 Neutrophils % (Manual) 81 H Band Neutrophils % 15 H Lymphocytes % (Manual) 3 L Monocytes % (Manual) 1 L Abs Neuts (Manual) 18.8 H Lymphocytes # (Manual) 0.6 L Monocytes # (Manual) 0.2 Platelet Estimate NORMAL Plt Morphology Comment NORMAL RBC Morphology NORMAL Smear Tech's Comments MANUAL DIFF VBG pH 7.39 VBG pCO2 35 VBG pO2 64 VBG HCO3 21 L VBG O2 Saturation 93.0 VBG Base Excess -2.6 Anion Gap 15 Estim Creat Clear Calc 69.8 Estimated GFR > 60 Random Glucose 275 H Lactic Acid 4.0 H* Lactic Acid F/U @ 2Hr Calcium 9.4 Magnesium 1.4 L* Total Bilirubin 3.6 H AST 189 H ALT 208 H Alkaline Phosphatase 248 H Total Protein 6.5 Albumin 3.7 Influenza Type A (PCR) NEGATIVE Influenza Type B (PCR) NEGATIVE RSV RNA Qual (PCR) NEGATIVE SARS-CoV-2 RNA (RT-PCR) POSITIVE A 04/17/25 18:28 MCV MCH MCHC RDW Plt Count MPV Immature Gran % (Auto) Neut % (Auto) Lymph % (Auto) [place] % (Auto) Eos % (Auto) Baso % (Auto) Lymph # (Auto) [place] # (Auto) Eos # (Auto) Baso # (Auto) Abs Immat Gran (auto) Absolute Neuts (auto) Absolute Nucleated RBC Nucleated RBC % (auto) Neutrophils % (Manual) Band Neutrophils % Lymphocytes % (Manual) Monocytes % (Manual) Abs Neuts (Manual) Lymphocytes # (Manual) Monocytes # (Manual) Platelet Estimate Plt Morphology Comment RBC Morphology Smear Tech's Comments VBG pH VBG pCO2 VBG pO2 VBG HCO3 VBG O2 Saturation VBG Base Excess Anion Gap Estim Creat Clear Calc Estimated GFR Random Glucose Lactic Acid Lactic Acid F/U @ 2Hr 2.4 H* Calcium Magnesium Total Bilirubin AST ALT Alkaline Phosphatase Total Protein Albumin Influenza Type A (PCR) Influenza Type B (PCR) RSV RNA Qual (PCR) SARS-CoV-2 RNA (RT-PCR) Assessment and Plan (1) Hypoxia: Status: Acute (2) COVID-19 virus infection: Status: Acute (3) Diabetes: Status: Acute (4) Acidosis, lactic: Status: Acute Plan Assessment 79/m with HTN, DM, GERD with * Acute hypoxic respiratory failure?secondary to COVID-19 pneumonia (despite unremarkable CXR), with possible superimposed bacterial infection (leukocytosis, Acute lactic acidosis). * Viral Sepsis?(hypotension, elevated lactate, leukocytosis) likely secondary to COVID-19 and/or possible bacterial infection. Given sepsis * Hypomagnesemia?(corrected). * Elevated LFTs, likely d/t covid * Chronic comorbidities:?Diabetes, hypertension, GERD. Plan (for ongoing care): * Continue supplemental oxygen as needed, monitor for respiratory decompensation. * Continue dexamethasone for COVID-19 per protocol. * Continue empiric antibiotics pending cultures and further evaluation. * Monitor hemodynamics and repeat lactate as indicated. * Monitor and correct electrolytes (Magnesium) * Monitor for complications of COVID-19 (e.g., ARDS, thromboembolism). * Glycemic and blood pressure control. * PPI gor GERD * Resume Home HTN meds * Monitor LFTs DVT prophylaxis: Lovenox Diabetic diet Full code Quality Stroke Does the patient have a stroke diagnosis?: No VTE Prior VTE?: No VTE Risk Level:: Medical - moderate - high VTE Device Contraindication: N/A - Device Ordered VTE Drug Contraindication: N/A - Med Ordered
[2025-04-17 20:10] LABS: Glucose, Whole Blood 187 mg/dL (60-115)
[2025-04-17] MEDS: Lactated Ringers 1,000 ML 125 ML IVCONT (20:10)
[2025-04-17 20:31] LABS: Reflex Lactate? 2 Y
[2025-04-17 22:03] LABS: ~Lactic Acid-LAB USE ONLY 2.1 mmol/L (0.5-2.0)
[2025-04-18] VITALS (9 sets, daily range): BP systolic 90–103; BP diastolic 51–63; PULSE 53–89; RESP 14–18; TEMP 36–37.2; O2SAT 92–96; BMI 27.0
--- NOTE | 2025-04-18 03:19 | HO.NURTONUR ---
It was reported to this nurse that pts HR dropped to 39. Rolfe text sent to the hospitalist with monitor picture. No new orders at this time.
[2025-04-18] MEDS: Lactated Ringers 1,000 ML 125 ML IVCONT ×3 (04:31→20:46)
[2025-04-18 05:29] LABS: Alanine Aminotransferase 171 U/L (0-40); Albumin Level 3.1 g/dL (3.5-5.0); Alkaline Phosphatase 193 U/L (39-117); Anion Gap 12 (12-20); Aspartate Amino Transferase 132 U/L (5-37); Blood Urea Nitrogen 18 mg/dL (9-16); Calcium 8.5 mg/dL (8.4-10.2); Carbon Dioxide 23 mmol/L (22-29); Chloride 107 mmol/L (96-108); Creatinine Clr Calc Pharmacy 65.4; Estimated Glomerular Filt Rate > 60; Potassium 4.5 mmol/L (3.3-5.1); Sodium 137 mmol/L (135-145); Total Protein 5.7 g/dL (6.5-8.0)
[2025-04-18 05:31] LABS: Alanine Aminotransferase 169 U/L (0-40); Albumin Level 3.1 g/dL (3.5-5.0); Alkaline Phosphatase 193 U/L (39-117); Anion Gap 13 (12-20); Aspartate Amino Transferase 131 U/L (5-37); Blood Urea Nitrogen 17 mg/dL (9-16); Calcium 8.7 mg/dL (8.4-10.2); Carbon Dioxide 20 mmol/L (22-29); Chloride 108 mmol/L (96-108); Creatinine Clr Calc Pharmacy 66.8; Estimated Glomerular Filt Rate > 60; Potassium 4.4 mmol/L (3.3-5.1); Sodium 137 mmol/L (135-145); Total Protein 5.6 g/dL (6.5-8.0)
--- NOTE | 2025-04-18 06:24 | PC.NURSE ---
Pt arrived to overflow unit from main ED at 0500. Pt A+Ox4. Calm and cooperative. Following commands. Pt on COVID precautions. Pt denies SOB or cough. Lung sounds clear throughout. Pt remains on supplemental O2 at 3.5 LPM via NC. Pt resting in bed with call riggins in reach. High fall risk precautions in place. See flowsheets and MAR for more information. Awaiting bed assignment. Plan of care continues.
[2025-04-18 08:02] LABS: Glucose, Whole Blood 166 mg/dL (60-115)
[2025-04-18 08:18] LABS: Appearance Urine Cloudy; Glucose Urine UA 500 mg/dL (Negative); PH 5.5 (5.0-9.0); Specific Gravity - Urine >= 1.030 (1.005-1.025); UMIC TRIGGER UACC YES
[2025-04-18 08:30] LABS: UACC Culture Trigger YES
[2025-04-18 09:49] LABS: Hematocrit 39.0 % (42.0-52.0); Hemoglobin 12.7 g/dl (14.0-18.0); Mean Corpuscular HGB Conc 32.6 g/dl (31.0-36.0); Mean Corpuscular Hemoglobin 29.3 pg (27.0-33.0); Mean Corpuscular Volume 89.9 fL (80.0-98.0); NRBC Abs Auto 0.000 X10*3/uL (0.0-0.012); NRBC Pct Auto 0.0 /100WBC (0.0-0.2); Platelet Count 234 X10*3/uL (160-400); Red Blood Count 4.34 X10*6/uL (4.60-5.80); White Blood Count 26.1 X10*3/uL (4.8-10.8)
[2025-04-18 09:56] LABS: Anion Gap 14 (12-20); Blood Urea Nitrogen 20 mg/dL (9-16); Calcium 8.6 mg/dL (8.4-10.2); Carbon Dioxide 17 mmol/L (22-29); Chloride 110 mmol/L (96-108); Creatinine Clr Calc Pharmacy 76.6; Estimated Glomerular Filt Rate > 60; Potassium 4.6 mmol/L (3.3-5.1); Sodium 136 mmol/L (135-145)
--- NOTE | 2025-04-18 10:24 | PHA.MEDREC ---
Addendum entered by Melchor Leon, PharmJil 04/18/25 10:30: med rec checked by [facility] Original Note: Pharmacy Consult ? Medication Reconciliation Pharmacy has completed the medication reconciliation. Spoke to patient over the phone to confirm med list. was able to confirm all of patients medications. Patient last had his medication yesterday morning.
[2025-04-18 11:35] LABS: Glucose, Whole Blood 209 mg/dL (60-115)
--- NOTE | 2025-04-18 12:03 | HO.PM.IMPN ---
Subjective Subjective Date of Service: 04/18/25 Interval History: f/u on covid, he's feeling better bp on low side assymptoam Still on oxygen Review of Systems No fever, no sob Physical Exam Vital Signs: Vital Signs: Last Vital Signs Temp 96.8 F 04/18/25 08:00 Pulse 53 04/18/25 08:00 Resp 16 04/18/25 08:00 BP 90/52 L 04/18/25 08:00 Pulse Ox 92 04/18/25 08:00 O2 Del Method Nasal Cannula 04/18/25 08:00 O2 Flow Rate 3.5 04/18/25 08:00 Oxygen Flow Rate 2 04/17/25 15:10 BMI result Body Mass Index 26.2 Const: Other: General: AO X 3, no acute distress Resp: CTA bilateral CVS: S1,S2,RRR GI: +BS, NT, no distention Skin: No rash Neuro: motor grossly intact Psych: appropriate affect Objective Data Active Medications Acetaminophen (Acetaminophen 325 Mg Tablet) 650 mg PO Q6H PRN PRN Reason: Pain, Mild 1-3,fever,headache Al Hydroxide/Mg Hydroxide (Magnesium Hydrox/Alum Hydrox 30 Ml Oral.Susp) 30 ml PO Q4H PRN PRN Reason: Heartburn Ascorbic Acid (Ascorbic Acid 500 Mg Tablet) 500 mg PO DAILY ZULMA Calcium Carbonate (Calcium Carbonate 750 Mg Tab.Chew) 750 mg PO Q4H PRN PRN Reason: Heartburn Dexamethasone Sodium Phosphate (Dexamethasone Sod Phosphate 4 Mg/Ml Vial) 6 mg IVPUSH DAILY COUNTS INCLUDE 234 BEDS AT THE [facility] Last Admin: 04/18/25 09:29 Dose: 6 mg Documented By: SHAYLEE Dextrose (Dextrose 50 % 25 Gm/50 Ml Syringe) 25 gm IVPUSH Q15M PRN; Protocol PRN Reason: per Hypoglycemia Standing Ord. Glucose (Glucose Gel 15 Gm Gel..Gram.) 15 gm PO Q15M PRN; Protocol PRN Reason: per Hypoglycemia Standing Ord. Lactated Ringer's (Lr) 1,000 mls @ 125 mls/hr IVCONT .Q8H COUNTS INCLUDE 234 BEDS AT THE [facility] Last Admin: 04/18/25 11:49 Dose: 125 mls/hr Documented By: SHAYLEE Ceftriaxone Sodium 1 gm/ (Sodium Chloride) 50 mls @ 100 mls/hr IV Q24H COUNTS INCLUDE 234 BEDS AT THE [facility] Last Infusion: 04/18/25 01:29 Dose: Infused Documented By: LILLY Insulin Human Lispro (Insulin Lispro 100 Unit/Ml 3 Ml Vial) 0 unit SUBCUT QIDACHS COUNTS INCLUDE 234 BEDS AT THE [facility]; Protocol Last Admin: 04/18/25 11:49 Dose: 4 unit Documented By: SHAYLEE Magnesium Hydroxide (Milk Of Magnesia 30 Ml Oral.Susp) 30 ml PO DAILY PRN PRN Reason: Constipation Melatonin (Melatonin 3 Mg Tablet) 6 mg PO BEDTIME PRN PRN Reason: Insomnia Non-Formulary Medication ([place]-3 Fatty Acids-Fish Oil) 1 cap PO DAILY COUNTS INCLUDE 234 BEDS AT THE [facility] Omeprazole (Omeprazole 20 Mg Capsule.Dr) 20 mg PO DAILY@0630 COUNTS INCLUDE 234 BEDS AT THE [facility] Sodium Chloride (0.9 % Sodium Chloride Flush 3 Ml Syringe) 3 ml IVFLUSH QSHIFT COUNTS INCLUDE 234 BEDS AT THE [facility] Last Admin: 04/18/25 09:13 Dose: Not Given Documented By: SHAYLEE Non-Admin Reason: IV Running Vitamin D (Cholecalciferol (Vitamin D3) 10 Mcg Tablet) 10 mcg PO DAILY COUNTS INCLUDE 234 BEDS AT THE [facility] Labs 04/18/25 09:18 04/18/25 09:18 Labs: Laboratory Results - last 24 hr 04/17/25 04/17/25 04/17/25 15:41 15:42 15:51 MCV 86.7 MCH 29.7 MCHC 34.2 RDW 13.7 Plt Count 283 MPV 10.8 Immature Gran % (Auto) Cancelled Neut % (Auto) Cancelled Lymph % (Auto) Cancelled [place] % (Auto) Cancelled Eos % (Auto) Cancelled Baso % (Auto) Cancelled Lymph # (Auto) Cancelled [place] # (Auto) Cancelled Eos # (Auto) Cancelled Baso # (Auto) Cancelled Abs Immat Gran (auto) Cancelled Absolute Neuts (auto) Cancelled Absolute Nucleated RBC 0.000 Nucleated RBC % (auto) 0.0 Neutrophils % (Manual) 81 H Band Neutrophils % 15 H Lymphocytes % (Manual) 3 L Monocytes % (Manual) 1 L Abs Neuts (Manual) 18.8 H Lymphocytes # (Manual) 0.6 L Monocytes # (Manual) 0.2 Platelet Estimate NORMAL Plt Morphology Comment NORMAL RBC Morphology NORMAL Smear Tech's Comments MANUAL DIFF VBG pH 7.39 VBG pCO2 35 VBG pO2 64 VBG HCO3 21 L VBG O2 Saturation 93.0 VBG Base Excess -2.6 Anion Gap 15 Estim Creat Clear Calc 69.8 Estimated GFR > 60 POC Glucose Random Glucose 275 H Lactic Acid 4.0 H* Lactic Acid F/U @ 2Hr Lactic Acid F/U @ 4Hr Calcium 9.4 Magnesium 1.4 L* Total Bilirubin 3.6 H Direct Bilirubin AST 189 H ALT 208 H Alkaline Phosphatase 248 H Total Protein 6.5 Albumin 3.7 Urine Color Urine Appearance Urine pH Ur Specific [place] Urine Protein Urine Glucose (UA) Urine Ketones Urine Blood Urine Nitrite Ur Leukocyte Esterase Urine RBC Urine WBC Ur Squamous Epith Cells Urine Bacteria Hyaline Casts Influenza Type A (PCR) NEGATIVE Influenza Type B (PCR) NEGATIVE RSV RNA Qual (PCR) NEGATIVE SARS-CoV-2 RNA (RT-PCR) POSITIVE A 04/17/25 04/17/25 04/17/25 18:28 20:07 20:52 MCV MCH MCHC RDW Plt Count MPV Immature Gran % (Auto) Neut % (Auto) Lymph % (Auto) [place] % (Auto) Eos % (Auto) Baso % (Auto) Lymph # (Auto) [place] # (Auto) Eos # (Auto) Baso # (Auto) Abs Immat Gran (auto) Absolute Neuts (auto) Absolute Nucleated RBC Nucleated RBC % (auto) Neutrophils % (Manual) Band Neutrophils % Lymphocytes % (Manual) Monocytes % (Manual) Abs Neuts (Manual) Lymphocytes # (Manual) Monocytes # (Manual) Platelet Estimate Plt Morphology Comment RBC Morphology Smear Tech's Comments VBG pH VBG pCO2 VBG pO2 VBG HCO3 VBG O2 Saturation VBG Base Excess Anion Gap Estim Creat Clear Calc Estimated GFR POC Glucose 187 H Random Glucose Lactic Acid Lactic Acid F/U @ 2Hr 2.4 H* Lactic Acid F/U @ 4Hr 2.1 H* Calcium Magnesium Total Bilirubin Direct Bilirubin AST ALT Alkaline Phosphatase Total Protein Albumin Urine Color Urine Appearance Urine pH Ur Specific [place] Urine Protein Urine Glucose (UA) Urine Ketones Urine Blood Urine Nitrite Ur Leukocyte Esterase Urine RBC Urine WBC Ur Squamous Epith Cells Urine Bacteria Hyaline Casts Influenza Type A (PCR) Influenza Type B (PCR) RSV RNA Qual (PCR) SARS-CoV-2 RNA (RT-PCR) 04/18/25 04/18/25 04/18/25 04:42 04:42 04:42 MCV MCH MCHC RDW Plt Count MPV Immature Gran % (Auto) Neut % (Auto) Lymph % (Auto) [place] % (Auto) Eos % (Auto) Baso % (Auto) Lymph # (Auto) [place] # (Auto) Eos # (Auto) Baso # (Auto) Abs Immat Gran (auto) Absolute Neuts (auto) Absolute Nucleated RBC Nucleated RBC % (auto) Neutrophils % (Manual) Band Neutrophils % Lymphocytes % (Manual) Monocytes % (Manual) Abs Neuts (Manual) Lymphocytes # (Manual) Monocytes # (Manual) Platelet Estimate Plt Morphology Comment RBC Morphology Smear Tech's Comments VBG pH VBG pCO2 VBG pO2 VBG HCO3 VBG O2 Saturation VBG Base Excess Anion Gap 13 12 Estim Creat Clear Calc 66.8 65.4 Estimated GFR > 60 POC Glucose Random Glucose Lactic Acid Lactic Acid F/U @ 2Hr Lactic Acid F/U @ 4Hr Calcium Magnesium Total Bilirubin Direct Bilirubin AST ALT Alkaline Phosphatase Total Protein Albumin Urine Color Urine Appearance Urine pH Ur Specific [place] Urine Protein Urine Glucose (UA) Urine Ketones Urine Blood Urine Nitrite Ur Leukocyte Esterase Urine RBC Urine WBC Ur Squamous Epith Cells Urine Bacteria Hyaline Casts Influenza Type A (PCR) Influenza Type B (PCR) RSV RNA Qual (PCR) SARS-CoV-2 RNA (RT-PCR) 04/18/25 04/18/25 04/18/25 04:42 04:42 04:42 MCV MCH MCHC RDW Plt Count MPV Immature Gran % (Auto) Neut % (Auto) Lymph % (Auto) [place] % (Auto) Eos % (Auto) Baso % (Auto) Lymph # (Auto) [place] # (Auto) Eos # (Auto) Baso # (Auto) Abs Immat Gran (auto) Absolute Neuts (auto) Absolute Nucleated RBC Nucleated RBC % (auto) Neutrophils % (Manual) Band Neutrophils % Lymphocytes % (Manual) Monocytes % (Manual) Abs Neuts (Manual) Lymphocytes # (Manual) Monocytes # (Manual) Platelet Estimate Plt Morphology Comment RBC Morphology Smear Tech's Comments VBG pH VBG pCO2 VBG pO2 VBG HCO3 VBG O2 Saturation VBG Base Excess Anion Gap Estim Creat Clear Calc Estimated GFR > 60 POC Glucose Random Glucose 206 H 209 H Lactic Acid Lactic Acid F/U @ 2Hr Lactic Acid F/U @ 4Hr Calcium 8.7 D 8.5 Magnesium Total Bilirubin 3.0 H Direct Bilirubin AST ALT Alkaline Phosphatase Total Protein Albumin Urine Color Urine Appearance Urine pH Ur Specific [place] Urine Protein Urine Glucose (UA) Urine Ketones Urine Blood Urine Nitrite Ur Leukocyte Esterase Urine RBC Urine WBC Ur Squamous Epith Cells Urine Bacteria Hyaline Casts Influenza Type A (PCR) Influenza Type B (PCR) RSV RNA Qual (PCR) SARS-CoV-2 RNA (RT-PCR) 04/18/25 04/18/25 04/18/25 04:42 04:42 04:42 MCV MCH MCHC RDW Plt Count MPV Immature Gran % (Auto) Neut % (Auto) Lymph % (Auto) [place] % (Auto) Eos % (Auto) Baso % (Auto) Lymph # (Auto) [place] # (Auto) Eos # (Auto) Baso # (Auto) Abs Immat Gran (auto) Absolute Neuts (auto) Absolute Nucleated RBC Nucleated RBC % (auto) Neutrophils % (Manual) Band Neutrophils % Lymphocytes % (Manual) Monocytes % (Manual) Abs Neuts (Manual) Lymphocytes # (Manual) Monocytes # (Manual) Platelet Estimate Plt Morphology Comment RBC Morphology Smear Tech's Comments VBG pH VBG pCO2 VBG pO2 VBG HCO3 VBG O2 Saturation VBG Base Excess Anion Gap Estim Creat Clear Calc Estimated GFR POC Glucose Random Glucose Lactic Acid Lactic Acid F/U @ 2Hr Lactic Acid F/U @ 4Hr Calcium Magnesium Total Bilirubin 3.1 H Direct Bilirubin 2.3 H AST 131 H 132 H ALT 169 H 171 H Alkaline Phosphatase 193 H Total Protein Albumin Urine Color Urine Appearance Urine pH Ur Specific [place] Urine Protein Urine Glucose (UA) Urine Ketones Urine Blood Urine Nitrite Ur Leukocyte Esterase Urine RBC Urine WBC Ur Squamous Epith Cells Urine Bacteria Hyaline Casts Influenza Type A (PCR) Influenza Type B (PCR) RSV RNA Qual (PCR) SARS-CoV-2 RNA (RT-PCR) 04/18/25 04/18/25 04/18/25 04:42 04:42 04:42 MCV MCH MCHC RDW Plt Count MPV Immature Gran % (Auto) Neut % (Auto) Lymph % (Auto) [place] % (Auto) Eos % (Auto) Baso % (Auto) Lymph # (Auto) [place] # (Auto) Eos # (Auto) Baso # (Auto) Abs Immat Gran (auto) Absolute Neuts (auto) Absolute Nucleated RBC Nucleated RBC % (auto) Neutrophils % (Manual) Band Neutrophils % Lymphocytes % (Manual) Monocytes % (Manual) Abs Neuts (Manual) Lymphocytes # (Manual) Monocytes # (Manual) Platelet Estimate Plt Morphology Comment RBC Morphology Smear Tech's Comments VBG pH VBG pCO2 VBG pO2 VBG HCO3 VBG O2 Saturation VBG Base Excess Anion Gap Estim Creat Clear Calc Estimated GFR POC Glucose Random Glucose Lactic Acid Lactic Acid F/U @ 2Hr Lactic Acid F/U @ 4Hr Calcium Magnesium Total Bilirubin Direct Bilirubin AST ALT Alkaline Phosphatase 193 H Total Protein 5.6 L 5.7 L Albumin 3.1 L 3.1 L Urine Color Urine Appearance Urine pH Ur Specific [place] Urine Protein Urine Glucose (UA) Urine Ketones Urine Blood Urine Nitrite Ur Leukocyte Esterase Urine RBC Urine WBC Ur Squamous Epith Cells Urine Bacteria Hyaline Casts Influenza Type A (PCR) Influenza Type B (PCR) RSV RNA Qual (PCR) SARS-CoV-2 RNA (RT-PCR) 04/18/25 04/18/25 04/18/25 07:35 08:05 09:18 MCV 89.9 MCH 29.3 MCHC 32.6 RDW 14.4 Plt Count 234 MPV 11.1 Immature Gran % (Auto) Neut % (Auto) Lymph % (Auto) [place] % (Auto) Eos % (Auto) Baso % (Auto) Lymph # (Auto) [place] # (Auto) Eos # (Auto) Baso # (Auto) Abs Immat Gran (auto) Absolute Neuts (auto) Absolute Nucleated RBC 0.000 Nucleated RBC % (auto) 0.0 Neutrophils % (Manual) Band Neutrophils % Lymphocytes % (Manual) Monocytes % (Manual) Abs Neuts (Manual) Lymphocytes # (Manual) Monocytes # (Manual) Platelet Estimate Plt Morphology Comment RBC Morphology Smear Tech's Comments VBG pH VBG pCO2 VBG pO2 VBG HCO3 VBG O2 Saturation VBG Base Excess Anion Gap 14 Estim Creat Clear Calc 76.6 Estimated GFR > 60 POC Glucose 166 H Random Glucose 240 H Lactic Acid Lactic Acid F/U @ 2Hr Lactic Acid F/U @ 4Hr Calcium 8.6 Magnesium Total Bilirubin Direct Bilirubin AST ALT Alkaline Phosphatase Total Protein Albumin Urine Color Dark Yellow Urine Appearance Cloudy Urine pH 5.5 Ur Specific [place] >= 1.030 H Urine Protein 100 (2+) H Urine Glucose (UA) 500 H Urine Ketones Negative Urine Blood Negative Urine Nitrite Positive H Ur Leukocyte Esterase Small (1+) H Urine RBC 0-2 Urine WBC 0-5 Ur Squamous Epith Cells 6-10 Urine Bacteria Trace Hyaline Casts 3-5 Influenza Type A (PCR) Influenza Type B (PCR) RSV RNA Qual (PCR) SARS-CoV-2 RNA (RT-PCR) 04/18/25 11:32 MCV MCH MCHC RDW Plt Count MPV Immature Gran % (Auto) Neut % (Auto) Lymph % (Auto) [place] % (Auto) Eos % (Auto) Baso % (Auto) Lymph # (Auto) [place] # (Auto) Eos # (Auto) Baso # (Auto) Abs Immat Gran (auto) Absolute Neuts (auto) Absolute Nucleated RBC Nucleated RBC % (auto) Neutrophils % (Manual) Band Neutrophils % Lymphocytes % (Manual) Monocytes % (Manual) Abs Neuts (Manual) Lymphocytes # (Manual) Monocytes # (Manual) Platelet Estimate Plt Morphology Comment RBC Morphology Smear Tech's Comments VBG pH VBG pCO2 VBG pO2 VBG HCO3 VBG O2 Saturation VBG Base Excess Anion Gap Estim Creat Clear Calc Estimated GFR POC Glucose 209 H Random Glucose Lactic Acid Lactic Acid F/U @ 2Hr Lactic Acid F/U @ 4Hr Calcium Magnesium Total Bilirubin Direct Bilirubin AST ALT Alkaline Phosphatase Total Protein Albumin Urine Color Urine Appearance Urine pH Ur Specific [place] Urine Protein Urine Glucose (UA) Urine Ketones Urine Blood Urine Nitrite Ur Leukocyte Esterase Urine RBC Urine WBC Ur Squamous Epith Cells Urine Bacteria Hyaline Casts Influenza Type A (PCR) Influenza Type B (PCR) RSV RNA Qual (PCR) SARS-CoV-2 RNA (RT-PCR) Assessment and Plan (1) Diabetes: Status: Acute (2) Acidosis, lactic: Status: Acute (3) COVID-19 virus infection: Status: Acute (4) Hypoxia: Status: Acute Plan Assessment 79/m with HTN, DM, GERD with Acute hypoxic respiratory failure?secondary to COVID-19 pneumonia (despite unremarkable CXR), with possible superimposed bacterial infection (leukocytosis, Acute lactic acidosis). -still on O2 Viral Sepsis?(hypotension, elevated lactate, leukocytosis) likely secondary to COVID-19 and/or possible bacterial infection. Given sepsis -WBC higher due to steroid Hypomagnesemia?(corrected). Elevated LFTs, likely d/t covid Chronic comorbidities:?Diabetes, hypertension, GERD. Plan (for ongoing care): Continue supplemental oxygen as needed, monitor for respiratory decompensation. Continue dexamethasone for COVID-19 per protocol. Continue empiric antibiotics pending cultures and further evaluation. Monitor hemodynamics and repeat lactate as indicated. Monitor and correct electrolytes (Magnesium) Monitor for complications of COVID-19 (e.g., ARDS, thromboembolism). Glycemic and blood pressure control. PPI gor GERD Hold BP meds, Sliding scle Insulin, check A1C Monitor LFTs Empiric ceftriaxone, also for UTI ID to coment on Remdesevir IVF for hyperchloremic met acidosis DVT prophylaxis: Lovenox Diabetic diet Full code Dispo: home once off O2 Quality Stroke Does the patient have a stroke diagnosis?: No VTE Prior VTE?: No VTE Risk Level:: Medical - moderate - high VTE Device Contraindication: N/A - Device Ordered VTE Drug Contraindication: N/A - Med Ordered
[2025-04-18 12:23] LABS: Magnesium 2.1 mg/dL (1.6-2.6)
--- NOTE | 2025-04-18 15:08 | P.CNID_ITS ---
History of Present Illness Data of Consult Service Date: 04/18/25 Requesting physician: Jose Luis Hernandez Primary Care Provider: Alvino Henry MD HPI Reason for consult: COVID,hypoxia He presents with chills and shortness of breath for a day and couldnt sleep due to chills. He had chills about couple weeks ago but no shortness of breath until night before came in. He has had COVID several times and received three vaccines in 2020. He did not get Paxlovid but he tested positive for COVID. His tested positive for COVID as well. He is on 3.5 liters for oxygen saturation of 88%. Review of Systems 2 Review of Systems: Yes all other systems are reviewed and are negative PMFSH Past Medical History Medical History 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 Family history: reviewed and not pertinent Surgical History Surgical History History of esophagogastroduodenoscopy (EGD) History of colonoscopy (~12/08/13) Social History Social History Housing: House Patient Tobacco Use Status: Former Tobacco user Smoked in Last 30 Days: No e-Cigarette/Vaping Use: Former Use Use of substances other than those prescribed or required for medical reasons: No Advance Directives: No Advance Directives Information Provided: Yes Nutrition Risks: No Nutritional Risk service: No Current occupational status: retired Cognitive needs: No Hearing needs: No Vision needs: Yes (rx glasses) Meds Allergies Allergy/AdvReac Type Severity Reaction Status Date / Time empagliflozin (From Allergy Severe hematuria Verified 04/17/25 15:29 Jardiance) egg Allergy Intermediate Rash Verified 04/17/25 15:29 triamcinolone Allergy Intermediate Rash Verified 04/17/25 15:29 codeine (Codeine) Allergy Unknown UNKNOWN Verified 04/17/25 15:29 fragrance Allergy Intermediate Rash Uncoded 04/17/25 15:29 Active Medications: Current Medications Acetaminophen (Acetaminophen 325 Mg Tablet) 650 mg PO Q6H PRN PRN Reason: Pain, Mild 1-3,fever,headache Al Hydroxide/Mg Hydroxide (Magnesium Hydrox/Alum Hydrox 30 Ml Oral.Susp) 30 ml PO Q4H PRN PRN Reason: Heartburn Ascorbic Acid (Ascorbic Acid 500 Mg Tablet) 500 mg PO DAILY [facility] Calcium Carbonate (Calcium Carbonate 750 Mg Tab.Chew) 750 mg PO Q4H PRN PRN Reason: Heartburn Dexamethasone Sodium Phosphate (Dexamethasone Sod Phosphate 4 Mg/Ml Vial) 6 mg IVPUSH DAILY [facility] Last Admin: 04/18/25 09:29 Dose: 6 mg Dextrose (Dextrose 50 % 25 Gm/50 Ml Syringe) 25 gm IVPUSH Q15M PRN; Protocol PRN Reason: per Hypoglycemia Standing Ord. Glucose (Glucose Gel 15 Gm Gel..Gram.) 15 gm PO Q15M PRN; Protocol PRN Reason: per Hypoglycemia Standing Ord. Lactated Ringer's (Lr) 1,000 mls @ 125 mls/hr IVCONT .Q8H [facility] Last Admin: 04/18/25 11:49 Dose: 125 mls/hr Ceftriaxone Sodium 1 gm/ (Sodium Chloride) 50 mls @ 100 mls/hr IV Q24H [facility] Last Infusion: 04/18/25 01:29 Dose: Infused Insulin Human Lispro (Insulin Lispro 100 Unit/Ml 3 Ml Vial) 0 unit SUBCUT QIDACHS [facility]; Protocol Last Admin: 04/18/25 11:49 Dose: 4 unit Magnesium Hydroxide (Milk Of Magnesia 30 Ml Oral.Susp) 30 ml PO DAILY PRN PRN Reason: Constipation Melatonin (Melatonin 3 Mg Tablet) 6 mg PO BEDTIME PRN PRN Reason: Insomnia Omeprazole (Omeprazole 20 Mg Capsule.Dr) 20 mg PO DAILY@0630 [facility] Sodium Chloride (0.9 % Sodium Chloride Flush 3 Ml Syringe) 3 ml IVFLUSH QSHIFT [facility] Last Admin: 04/18/25 09:13 Dose: Not Given Vitamin D (Cholecalciferol (Vitamin D3) 10 Mcg Tablet) 10 mcg PO DAILY [facility] Home Medications ?Medication ?Instructions ?Recorded ?Confirmed ?Last Taken ?Type glipizide 10 mg tablet, extended 10 mg PO BID 09/10/24 04/18/25 04/17/25 History release 24 hr losartan 50 mg tablet 50 mg PO DAILY 09/10/2404/0904/17/25 History pantoprazole 40 mg tablet,delayed 40 mg PO DAILY 09/1004/18/25 04/17/25 History release ascorbic acid (vitamin C) 500 mg 500 mg PO DAILY 10/0704/18/25 04/17/25 History tablet (Vitamin C) cholecalciferol (vitamin D3) 10 10 mcg PO DAILY 04/18/25 04/17/25 History mcg (400 unit) capsule (Vitamin D3) omega-3 fatty acids-fish oil 684 1 cap PO DAILY 04/18/25 04/17/25 History mg-1,200 mg capsule,delayed release Lactobacillus rhamnosus GG 10 1 cap PO DAILY 04/18/25 04/18/25 04/17/25 History billion cell capsule (Culturelle) lactase 3,000 unit tablet (Lactaid) 3,000 unit PO TID 04/18/25 04/18/25 04/17/25 History metformin 500 mg tablet 500 mg PO BID 04/18/2504/1804/17/25 History Physical Exam 2 Vital Signs: Vital Signs: Last Vital Signs Temp 98.3 F 04/18/25 12:00 Pulse 72 04/18/25 12:00 Resp 18 04/18/25 12:00 BP 96/63 04/18/25 12:00 Pulse Ox 92 04/18/25 14:38 O2 Del Method Nasal Cannula 04/18/25 14:38 O2 Flow Rate 1 04/18/25 14:38 Oxygen Flow Rate 2 04/17/25 15:10 BMI result Body Mass Index 26.2 Const: General: cooperative HEENT: Head: Yes normal to inspection Face and sinus: Yes normal facial exam Mouth: Normal oral and palatal mucosa present Teeth and gingiva: d entition normal Eyes: General: appearance normal, both eyes and all related structures P upils: Equal, round and reactive pupils present Resp: Effort & Inspection: normal respiratory effort Cardio: Rate: regular rate Rhythm: regular rhythm GI: Palpation (GI): Soft to palpation and nontender : General: Yes no CVA tenderness Back/Spine/Pelvis: Back: no CVA tenderness Skin: General skin exam: no rashes or lesions noted Neuro: General: moves all extremities Cranial nerves: Yes Equal, round and reactive pupils present Extrem: General: Yes normal to inspection Psych: Appearance: grossly normal Results Labs 04/18/25 09:18 04/18/25 09:18 Labs: Short CBC 04/17/25 04/18/25 Range/Units 15:41 09:18 WBC 19.6 H 26.1 H (4.8-10.8) X10*3/uL Hgb 14.1 12.7 L (14.0-18.0) g/dl Hct 41.2 L 39.0 L (42.0-52.0) % Plt Count 283 234 (160-400) X10*3/uL BMP 04/17/25 04/18/25 04/18/25 15:41 04:42 04:42 Sodium 135 137 137 Potassium 3.9 4.4 Chloride 103 Carbon Dioxide 21 L BUN 12 Creatinine 0.90 Calcium 9.4 04/18/25 04/18/25 04/18/25 04:42 04:42 04:42 Sodium Potassium 4.5 Chloride 108 107 Carbon Dioxide 20 L 23 BUN 17 H Creatinine Calcium 04/18/25 04/18/25 04/18/25 04:42 04:42 04:42 Sodium Potassium Chloride Carbon Dioxide BUN 18 H Creatinine 0.94 0.96 Calcium 8.7 D 8.5 04/18/25 09:18 Sodium 136 Potassium 4.6 Chloride 110 H Carbon Dioxide 17 L BUN 20 H Creatinine 0.82 Calcium 8.6 Liver Function 04/17/25 04/18/25 04/18/25 Range/Units 15:41 04:42 04:42 Total Bilirubin 3.6 H 3.0 H 3.1 H (0.0-1.0) mg/dL Direct Bilirubin 2.3 H (0.0-0.5) mg/dL AST 189 H 131 H (5-37) U/L ALT 208 H (0-40) U/L Alkaline Phosphatase 248 H (39-117) U/L Albumin 3.7 (3.5-5.0) g/dL 04/18/25 04/18/25 04/18/25 Range/Units 04:42 04:42 04:42 Total Bilirubin (0.0-1.0) mg/dL Direct Bilirubin (0.0-0.5) mg/dL AST 132 H (5-37) U/L ALT 169 H 171 H (0-40) U/L Alkaline Phosphatase 193 H 193 H (39-117) U/L Albumin 3.1 L (3.5-5.0) g/dL 04/18/25 Range/Units 04:42 Total Bilirubin (0.0-1.0) mg/dL Direct Bilirubin (0.0-0.5) mg/dL AST (5-37) U/L ALT (0-40) U/L Alkaline Phosphatase (39-117) U/L Albumin 3.1 L (3.5-5.0) g/dL Urine 04/18/25 Range/Units 08:05 Urine Color Dark Yellow Urine Appearance Cloudy Urine pH 5.5 (5.0-9.0) Ur Specific [place] >= 1.030 H (1.005-1.025) Urine Protein 100 (2+) H (Neg-Trace) mg/dL Urine Glucose (UA) 500 H (Negative) mg/dL Assessment and Plan (1) Hypoxia: Status: Acute (2) COVID-19 virus infection: Status: Acute Plan He has likely acute COVID 19 infection with pneumonia He has negative CXR so no lobar infiltrate. He does have elevated LFTs probably due to COVID but under five times normal. Continue IV Decadron 6 mg daily under no longer hypoxic,can switch to po when able. I started Remdesivir, benefit outweighs any risk in recent COVID even though elevated LFTs. Stop Ceftriaxone as no bacterial infection seen. Oxygen as needed to maintain saturation at or over 93 %. Respiratory isolation for acute infection,possible five days.
--- NOTE | 2025-04-18 15:35 | PC.NURSE ---
nurse to nurse report given to Christen CANTRELL
[2025-04-18 16:09] LABS: Glucose, Whole Blood 209 mg/dL (60-115)
[2025-04-18 17:13] LABS: Glucose, Whole Blood 210 mg/dL (60-115)
[2025-04-18] MEDS: Remdesivir 200 MG in 0.9 % Sodium Chloride 210 ML 105 MG IV (18:41)
[2025-04-18] MEDS: 0.9 % Sodium Chloride Flush 3 ML SYRINGE IVFLUSH (20:46)
[2025-04-18 21:02] LABS: Glucose, Whole Blood 244 mg/dL (60-115)
[2025-04-19 00:47] VITALS: BP 133/78; PULSE 98; RESP 18; TEMP 36.5; O2SAT 95
[2025-04-19 03:52] VITALS: BP 112/64; PULSE 81; RESP 18; TEMP 36.3; O2SAT 93
[2025-04-19] MEDS: Lactated Ringers 1,000 ML 125 ML IVCONT ×2 (05:23→14:26)
[2025-04-19 07:13] LABS: Glucose, Whole Blood 176 mg/dL (60-115)
[2025-04-19 07:35] VITALS: BP 121/72; PULSE 78; RESP 18; TEMP 36.8; O2SAT 94
[2025-04-19] MEDS: Cholecalciferol (Vitamin D3) 10 MCG TABLET PO (08:03)
[2025-04-19] MEDS: 0.9 % Sodium Chloride Flush 3 ML SYRINGE IVFLUSH (08:18)
--- NOTE | 2025-04-19 09:46 | MHC.CM.PN ---
IMM 04/19/25, Pt. lives with his , he does not use home health services, or medical equipment. His PCP is Pilar Todd MD. His is his HCP. Pt. will arrange a ride home at [place], DCP: home, self care, CM to follow for [place] needs.
[2025-04-19 11:05] LABS: Glucose, Whole Blood 271 mg/dL (60-115)
[2025-04-19 14:45] LABS: Anion Gap 13 (12-20); Blood Urea Nitrogen 25 mg/dL (9-16); Calcium 8.7 mg/dL (8.4-10.2); Carbon Dioxide 19 mmol/L (22-29); Chloride 108 mmol/L (96-108); Creatinine Clr Calc Pharmacy 73.9; Estimated Glomerular Filt Rate > 60; Potassium 4.6 mmol/L (3.3-5.1); Sodium 135 mmol/L (135-145)
[2025-04-19 15:41] LABS: Glucose, Whole Blood 259 mg/dL (60-115)
[2025-04-19 15:48] VITALS: BP 119/77; PULSE 92; RESP 18; TEMP 36.9; O2SAT 94
[2025-04-19] MEDS: Remdesivir 100 MG in 0.9 % Sodium Chloride 230 ML 115 MG IV (16:47)
[2025-04-19 20:00] VITALS: BP 134/81; PULSE 84; RESP 20; TEMP 36.7; O2SAT 95
[2025-04-19 21:04] LABS: Glucose, Whole Blood 271 mg/dL (60-115)
[2025-04-19 22:42] LABS: Glucose, Whole Blood 249 mg/dL (60-115)
[2025-04-19 23:31] VITALS: BP 135/73; PULSE 83; RESP 18; TEMP 36.9; O2SAT 95
[2025-04-20 02:53] VITALS: BP 122/83; PULSE 82; RESP 16; TEMP 36.5; O2SAT 94
[2025-04-20 07:04] LABS: Glucose, Whole Blood 174 mg/dL (60-115)
[2025-04-20 07:21] VITALS: BP 129/85; PULSE 64; RESP 18; TEMP 36; O2SAT 94
[2025-04-20 07:50] LABS: Anion Gap 11 (12-20); Blood Urea Nitrogen 25 mg/dL (9-16); Calcium 8.5 mg/dL (8.4-10.2); Carbon Dioxide 23 mmol/L (22-29); Chloride 110 mmol/L (96-108); Creatinine Clr Calc Pharmacy 79.5; Estimated Glomerular Filt Rate > 60; Potassium 4.2 mmol/L (3.3-5.1); Sodium 140 mmol/L (135-145)
--- NOTE | 2025-04-20 07:51 | P.DS_ITS ---
DS: Providers Provider Date of Service: 04/20/25 Date of admission: 04/17/25 18:52 Date of discharge: 04/20/25 Primary care physician: Alvino Henry MD Consults: 04/18/25 12:12 Consult to Infectious Diseases Routine Consulting Provider: [facility] Reason for consultation: Covid with hypoxia, ? need remdesevir DS: Diagnosis Discharge Diagnosis (1) Hypoxia: Status: Acute (2) COVID-19 virus infection: Status: Acute DS: Summary Hospital Course Hospital Course: Admission HPI Chief Complaint: shortness of breath A 79-year-old male with a history of diabetes, hypertension, and GERD presented to the emergency department with a 3-day history of shortness of breath, chills, fever up to 103, diaphoretic and dry cough. His recently tested positive for COVID-19, and he also tested positive. He was hypoxic (O2 sat 89%), borderline hypotensive, and had a lactic acid >4 mmol/L and WBC 19 x10?/L. Chest X-ray showed no acute findings. Serum magnesium was low at 1.4 mg/dL and was repleted. Emergency Department Management: * IV fluids * Zosyn (piperacillin-tazobactam) * Dexamethasone * Magnesium repletionFollowing initial management, his blood pressure improved and he reported symptomatic improvement. Hospital course: Patient was admitted for further management of acute hypoxic respiatory failure due to Covid-19. Management consisted of IV dexamethasone, oxygen therapy, emrpiric Abx with Ceftriaxone. Following infectious disease evaluation, he was give Remdesevir x 2 doses. Patient is making a rapid recovery, he has been weaned off Quality: Safe Use of Opioids Does Pt have an Active Cancer Diagnosis on the Problem List?: No Quality: Stroke Does the patient have a stroke diagnosis?: No Physical Exam Vital Signs: Vital Signs: Last Vital Signs Temp 96.8 F 04/20/25 07:21 Pulse 64 04/20/25 07:21 Resp 18 04/20/25 07:21 BP 129/85 04/20/25 07:21 Pulse Ox 94 04/20/25 07:21 O2 Del Method Room Air 04/20/25 07:21 O2 Flow Rate 1 04/18/25 14:38 Oxygen Flow Rate 2 04/17/25 15:10 BMI result Body Mass Index 27.0 DS: Data Data Completed and Pending Labs on day of discharge: Laboratory Results - last 24 hr 04/19/25 04/19/25 04/19/25 10:55 14:26 15:34 Hold Purple Top Sodium 135 Potassium 4.6 Chloride 108 Carbon Dioxide 19 L Anion Gap 13 BUN 25 H Creatinine 0.85 Estim Creat Clear Calc 73.9 Estimated GFR > 60 POC Glucose 271 H 259 H Random Glucose 311 H Calcium 8.7 04/19/25 04/19/25 04/20/25 20:53 22:38 06:26 Hold Purple Top Sodium 140 Potassium 4.2 Chloride 110 H Carbon Dioxide 23 Anion Gap 11 L BUN 25 H Creatinine 0.79 Estim Creat Clear Calc 79.5 Estimated GFR > 60 POC Glucose 271 H 249 H Random Glucose 197 H Calcium 8.5 04/20/25 04/20/25 07:00 07:24 Hold Purple Top SEE NOTE Sodium Potassium Chloride Carbon Dioxide Anion Gap BUN Creatinine Estim Creat Clear Calc Estimated GFR POC Glucose 174 H Random Glucose Calcium Preliminary micro results at discharge 04/17/25 15:51 Blood Culture - Preliminary Blood - Venous No growth after 48 hours. 04/17/25 15:42 Blood Culture - Preliminary Blood - Venous No growth after 48 hours. Discharge Plan Discharge Referrals: Alvino Henry MD [Primary Care Provider, Internal Medicine] - 1 Week Discharge Medications: No Action diltiazem HCl 180 mg capsule,extended release 24hr 180 mg PO DAILY Qty: 90 1RF ascorbic acid (vitamin C) [Vitamin C] 500 mg Tablet 500 mg PO DAILY cholecalciferol (vitamin D3) [Vitamin D3] 10 mcg (400 unit) Capsule 10 mcg PO DAILY [place] 3 Fish Oil 684-1,200 mg Capsule,Delayed Release(Dr/Ec) 1 cap PO DAILY lactase [Lactaid] 3,000 unit Tablet 3,000 unit PO TID Rx Instructions: administer with meals and/or snacks Culturelle 10 billion cell Capsule 1 cap PO DAILY metformin 500 mg tablet 500 mg PO BID losartan 50 mg tablet 50 mg PO DAILY glipizide 10 mg tablet extended release 24hr 10 mg PO BID pantoprazole 40 mg tablet,delayed release (DR/EC) 40 mg PO DAILY Diet: Advance to usual diet Activity on Discharge: As tolerated Print Language: Swedish
[2025-04-20] MEDS: Cholecalciferol (Vitamin D3) 10 MCG TABLET PO (08:06)
[2025-04-20] MEDS: 0.9 % Sodium Chloride Flush 3 ML SYRINGE IVFLUSH (08:06)
[2025-04-20 11:01] LABS: Glucose, Whole Blood 329 mg/dL (60-115)
--- NOTE | 2025-04-20 15:23 | MHC.CM.PN ---
Per rounds, pt. to have another dose of Remdesivir this afternoon and then DC, plan will be home, self care.
[2025-04-20 15:36] VITALS: BP 125/77; PULSE 63; RESP 20; TEMP 37.3; O2SAT 95
[2025-04-20] MEDS: Remdesivir 100 MG in 0.9 % Sodium Chloride 230 ML 115 MG IV (15:54)
[2025-04-20 16:23] LABS: Glucose, Whole Blood 268 mg/dL (60-115)
== END 2025-04-20 18:38 | disposition home or self-care (01) | DRG 871 ==
LOC: HO.ED 16:50 → HO.EDOVER 19:10 → HO.IMC 04-18 15:11
PROVIDERS: Physician Assistant Medical; Admitting Provider Internal Medicine; Emergency Provider Emergency Medicine; PCP Internal Medicine; Visit Provider Internal Medicine
DX: A41.89 Other specified sepsis (principal); J12.82 Pneumonia due to coronavirus disease 2019; U07.1 COVID-19; J96.01 Acute respiratory failure with hypoxia; E87.21 Acute metabolic acidosis; G61.81 Chronic inflammatory demyelinating polyneuritis; E11.9 Type 2 diabetes mellitus without complications; E83.42 Hypomagnesemia; Z79.84 Long term (current) use of oral hypoglycemic drugs; Z79.899 Other long term (current) drug therapy
CPT/HCPCS: 36415; 71045; 80048; 80053; 80076; 81001; 82010; 82803; 82947; 83036; 83605; 83735; 85007; 85025; 85027; 87040; 87086; 87637; 99285; J0131; J0248; J0696; J1100; J2543; J3475; J7120

== ENCOUNTER → 2025-04-17 18:52 | Outpatient (BNV) | payer MEDICARE, OTHER, SELFPAY | PROVIDERS: Admitting Provider Internal Medicine; Emergency Provider Emergency Medicine; PCP Internal Medicine; Visit Provider Internal Medicine | DX: J96.01 Acute respiratory failure with hypoxia (principal); U07.1 COVID-19 | CPT/HCPCS: 99222 ==

== ENCOUNTER → 2025-04-17 18:52 | Outpatient (BNV) | payer MEDICARE, OTHER, SELFPAY | PROVIDERS: Admitting Provider Internal Medicine; Emergency Provider Emergency Medicine; PCP Internal Medicine; Visit Provider Internal Medicine | DX: R09.02 Hypoxemia (principal); U07.1 COVID-19; E11.9 Type 2 diabetes mellitus without complications; E87.20 Acidosis, unspecified | CPT/HCPCS: 99223; 99233 ==

== ENCOUNTER 2025-04-22 10:59 | Outpatient (AMB) | payer MEDICARE, OTHER, SELFPAY ==
--- NOTE | 2025-04-22 11:03 | MHC.PC.OV ---
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 Accompanied by: Self / Same As Patient Allergies empagliflozin (From Jardiance) Allergy (Severe, Verified 04/22/25 11:05) hematuria egg Allergy (Intermediate, Verified 04/22/25 11:05) Rash triamcinolone Allergy (Intermediate, Verified 04/22/25 11:05) Rash codeine (Codeine) Allergy (Unknown, Verified 04/22/25 11:05) UNKNOWN fragrance Allergy (Intermediate, Uncoded 04/17/25 15:29) Rash Tobacco use date assessed: 10/06/24 Dental Screening Dental Screen Date: 10/06/24 HPI HPI Comments History of Present Illness Details The patient is a 79-year-old male presenting for follow-up after a recent hospitalization. He was admitted to the hospital on the via ambulance with a fever of 103 F, shortness of breath, dizziness, chills, and disorientation. In the hospital, he received oxygen, antibiotics, and steroids for suspected pneumonia and COVID-19, with an unremarkable chest x-ray and elevated lactic acid levels. Upon discharge, the patient was prescribed cefuroxime and dexamethasone, but there was a delay in obtaining the dexamethasone from the pharmacy. He was prescribed a five-day course of dexamethasone, two doses of which were administered in the hospital, and he has taken two of the three take-home doses. The patient has a history of type 2 diabetes, and during his hospitalization, his A1c was 8.2% and his blood glucose levels were persistently in the 200s. His prior A1c was 7.2%, though it was in the 9s in December of last year, and his current regimen is glipizide 10 mg twice daily and metformin 500 mg twice daily. 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 He also has hypertension, managed with diltiazem and losartan 50 mg, and acid reflux, for which he takes pantoprazole. He has a reported egg allergy, precluding him from receiving the flu shot, and a history of a prior COVID-19 infection that only caused anosmia and ageusia. Medical History: - COVID-19 (current and past infection) - Pneumonia - Type 2 diabetes mellitus - Hypertension - Gastroesophageal reflux disease - History of cancer - Egg allergy - History of occupational exposure to chemicals Medications: - Cefuroxime for pneumonia - Dexamethasone for COVID-19 - Glipizide 10 mg twice daily for diabetes - Metformin 500 mg twice daily for diabetes - Diltiazem for hypertension - Losartan 50 mg for hypertension - Pantoprazole for acid reflux Diagnostic Results: - Labs: Hemoglobin A1c was 8.2% during hospitalization. - Labs: Blood glucose levels were persistently in the 200s during hospitalization. - Labs: Lactic acid was elevated during hospitalization. - Imaging: Chest x-ray performed during hospitalization was unremarkable. 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 Social History Household Members: Spouse Housing: House Do you presently have visiting nurse or other home services: No Comment: low risk fall Patient Tobacco Use Status: Former Tobacco user e-Cigarette/Vaping Use: Former Use Second Hand Smoke Exposure: No service: No Current occupational status: retired Cognitive needs: No Hearing needs: No Vision needs: Yes (rx glasses) Questionnaire Thrive Questionnaire Date Thrive assessed: 04/19/25 DARIUSZ-7 AMB Questionnaire DARIUSZ-7 Date DARIUSZ - 7 assessed: 10/06/24 Source: Developed by Drs. Seng Carson, Kristen Noonan, Harlan Shields and colleagues, with an educational ggae from [employer]. Review of Systems Narrative - Constitutional: Reports he is feeling much better following recent illness. - Respiratory: Reports his breathing has returned to baseline. All systems reviewed & are unremarkable except as reviewed in HPI and above Physical exam (Primary Care) Vital Signs: Last Vital Signs Temp 98 F 04/22/25 11:09 Pulse 88 04/22/25 11:09 Resp 22 H 04/22/25 11:09 BP 138/68 04/22/25 11:09 Pulse Ox 95 04/22/25 11:09 Oxygen Delivery Method Room Air 04/22/25 11:09 BMI result Body Mass Index 29.2 Tobacco/Smoking Status: Tobacco use Status Tobacco use date assessed 10/06/24 04/22/25 11:04 Patient Tobacco Use Status Former Tobacco user 04/22/25 11:04 e-Cigarette/Vaping Use Former Use 04/22/25 11:04 Thrive Assessment: Date of Thrive Assessment Date Thrive assessed 04/19/25 04/22/25 11:04 Narrative General: +Alert and oriented, Well nourished, No acute distress. Eye: Pupils are equal, round and reactive to light, Intact accommodation, Extraocular movements are intact, Normal conjunctiva, Vision unchanged. HENT: Normocephalic, Atraumatic, Tympanic membranes are clear, Normal hearing, Oral mucosa is moist, No pharyngeal erythema, Ear canals patent. Respiratory: Lungs CTA bilaterally, No wheeze, Respirations are non-labored. Lungs sound great. Cardiovascular: Regular rate, Regular rhythm, S1 auscultated, S2 auscultated, No murmur, Good pulses equal in all extremities, Normal peripheral perfusion, No edema. Gastrointestinal: Soft, Non-tender, Non-distended, Normal bowel sounds, No organomegaly. No pain when pressed. Musculoskeletal: Normal range of motion, Normal strength, No tenderness, No swelling, No deformity, Normal gait. Hands and legs function well. Integumentary: Warm, Dry, [employer], Intact. Neurologic: Alert, Oriented, Normal sensory, Normal motor function, No focal defects, Cranial Nerves II-XII are grossly intact, Normal deep tendon reflexes. Psychiatric: Cooperative, Appropriate mood & affect, Normal judgment. 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 - He reports his breathing has returned to baseline, and his lungs are clear on exam. - He will complete the prescribed 5-day courses of cefuroxime and dexamethasone and then discontinue them. Code(s): U07.1 - COVID-19 Category: Medical (2) Diabetes: Comment: - The patient's recent A1c of 8.2% and inpatient glucose in the 200s reflect poor glycemic control. - Although steroid use can contribute to hyperglycemia, the A1c indicates a longer-term issue. - Plan is to increase metformin from 500 mg twice daily to 1000 mg twice daily. - A new prescription will be sent, and the patient was advised to discard the 500 mg tablets. - We will recheck his A1c in three months. 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 - He will continue his current regimen of diltiazem and losartan. Code(s): I10 - Essential (primary) hypertension Category: Medical Qualifiers: Hypertension type: primary hypertension Qualified Code(s): I10 - Essential (primary) hypertension Plan: Health Maintenance: - Follow-up: The patient will cancel his June appointment and schedule a physical for August. - Screening labs: Blood work, including a hemoglobin A1c, will be ordered for completion before his August visit. - Vaccinations: The patient does not receive the flu shot due to a reported egg allergy. - Risk Reduction: Patient advised to wear a mask for at least one week after testing positive for COVID-19. - Lifestyle: Patient advised to pace himself while staying active as he recovers. Patient was informed and verbally consented to the use of an ambient scribe for clinic note documentation during this visit. Plan I spoke with the patient about his recent hospitalization for COVID-19 and pneumonia. I informed him that he is recovering well and should complete his 5-day courses of dexamethasone and cefuroxime. We discussed his recent A1c of 8.2%, which reflects poor diabetic control, and I explained that while steroids can elevate blood sugar, his metformin dose is no longer adequate. I informed him I will be sending a new prescription for metformin 1000 mg to be taken twice daily. I confirmed his blood pressure remains well-controlled on his current medications. I advised him that he can attend his upcoming oncology and dental appointments but should wear a mask. We agreed to cancel his June follow-up and schedule a physical for August, with blood work to be done beforehand. Orders: Orders Lipid Panel 4 Months Z00.00 - Encounter for general adult medical examination without abnormal findings Microalbumin, Random (w Creat) 4 Months Z00.00 - Encounter for general adult medical examination without abnormal findings Syphilis Screen 4 Months Z00.00 - Encounter for general adult medical examination without abnormal findings Vitamin D 25-OH Total 4 Months Z00.00 - Encounter for general adult medical examination without abnormal findings Complete Blood Count Auto Diff 4 Months Z00.00 - Encounter for general adult medical examination without abnormal findings Comprehensive Met. Panel 4 Months Z00.00 - Encounter for general adult medical examination without abnormal findings Hemoglobin A1c 4 Months Z00.00 - Encounter for general adult medical examination without abnormal findings TSH reflex Free T4 4 Months Z00.00 - Encounter for general adult medical examination without abnormal findings Medications: New metformin 1,000 mg PO BID 180 tabs 1RF 90 days Patient Instructions: - Finish your 5-day courses of cefuroxime and dexamethasone, then you can stop taking them. - Your diabetes is not well controlled. - A new prescription for Metformin 1000 mg will be sent to your pharmacy. - You should take one tablet of the new metformin twice a day and throw away your old 500 mg tablets. - Continue taking all your other regular medications as prescribed. - Please wear a mask for at least one week since you tested positive for COVID-19. - It is safe to go to your upcoming doctor and dentist appointments, but please wear a mask. - Please call our office to cancel your June appointment and schedule a physical exam for August. - You will need to get blood work done before your August visit. - Continue to be active, but pace yourself and do not mendez into strenuous activities as you recover.
[2025-04-22 11:09] VITALS: BP 138/68; PULSE 88; RESP 22; TEMP 36.6; O2SAT 95; BMI 29.2
== END 2025-04-22 11:29 | disposition home or self-care (01) ==
LOC: HO.HMCHD 10:59
PROVIDERS: PCP Student in an Organized Health Care Education/Training Program; Visit Provider Student in an Organized Health Care Education/Training Program
DX: U07.1 COVID-19 (principal); E11.9 Type 2 diabetes mellitus without complications; I10 Essential (primary) hypertension

== ENCOUNTER → 2025-04-22 10:59 | Outpatient (BNVA) | payer MEDICARE, OTHER, SELFPAY | PROVIDERS: PCP Internal Medicine; Visit Provider Student in an Organized Health Care Education/Training Program | DX: Z09 Encounter for follow-up examination after completed treatment for conditions other than malignant neoplasm (principal); U07.1 COVID-19; E11.9 Type 2 diabetes mellitus without complications; I10 Essential (primary) hypertension | CPT/HCPCS: 99212 ==